=== PATIENT | female | born 1945 | race African-American/Black ===

== ENCOUNTER 2016-07-16 10:22 | Observation (INO) ==
--- NOTE | 2016-07-16 11:00 | XRay Report ---
History: Shortness of breath Date: 07/16/2016 Study: Chest x-ray PA and lateral Comparison exam: March 07, 2016 chest x-ray There is borderline cardiomegaly. The mediastinal contours are unchanged. There is chronic scarring in the lower lungs. There are prominent emphysematous changes in the lungs, more so in the right upper lobe. There is no new infiltrate. There is no layering pleural effusion. Osseous structures are unchanged. Impression: Chronic lung changes. No acute process compared to the previous study PROCEDURE INTERPRETED AT [facility] DEPARTMENT OF RADIOLOGY Final Report Signed by: Dr. Sylwia Cain
--- NOTE | 2016-07-16 11:11 | CT Report ---
Referring physician: Dain Zhao Exam: CT brain without contrast Date: July 16, 2016 Comparison: CT brain without contrast February 20, 2015 Reason: Right-sided weakness The patient is an Emergency Department patient on July 16, 2016. Technique: Axial images of the head were obtained without the use of contrast. Total DLP was 886.9 mGy*cm. Findings: There is a small stable focus of hypoattenuation within the subcortical white matter of the posterior right frontal lobe on image 11. This could represent a remote lacunar infarction. No hydrocephalus or midline shift is present. There is no evidence of recent intracranial hemorrhage, abnormal mass effect or an acute infarction. No acute osseous process is seen. The mastoid air cells and visualized paranasal sinuses are clear. Impression: 1. No acute intracranial process is identified. 2. Possible remote lacunar infarction within the subcortical white matter of the posterior right parietal lobe. The CT exam was performed using one or more of the following dose reduction techniques: Automated exposure control and adjustment of the mA and/or kV according to patient size. PROCEDURE INTERPRETED AT [facility] DEPARTMENT OF RADIOLOGY Final Report Signed by: Dr. Sharee Kraft
--- NOTE | 2016-07-16 11:16 | EKG Report ---
Stationary ECG Study [facility] Test Date: 07/16/2016 11:16:28 AM Pat Name: AMANDA ALVARADO Department: Room: Gender: F Promotional Advertising Assistant: : 1945 Requested by: Dain Reagan Order Number: [id number] Reading MD: JOSELIN CRUM Intervals [place] Rate: 83 P: 92 NM: 142 QRS: 51 QRSD: 75 T: 61 QT: 358 QTc: 397 Interpretive Statements SINUS RHYTHM Electronically Signed On 07-16-16 16:34:43 CDT by JOSELIN CRUM [email or web address]
[2016-07-16 11:42] LABS: INR 1.2; PT Patient Result 12.3 SECS
[2016-07-16 11:44] LABS: Basophils # 0.1 10*3/uL (0.0-0.2); Basophils % 0.5 % (0.0-0.8); Eosinophils # 0.7 10*3/uL (0.0-0.87); Eosinophils % 6.8 % (0.00-10.9); Hematocrit 39.4 VOL% (35.7-47.0); Immature Granulocytes % 0.3 %; Immature Granulocytes Absolute 0.03 #; Lymphocytes # 1.1 10*3/uL (1.4-4.0); Lymphocytes % 11.6 % (21.3-54.2); Mean Corpuscular Hemoglobin 31 PG (27-34); Mean Corpuscular Volume 92.7 FL (87-102); Mean Platelet Volume 10.5 FL (9.6-12.0); Monocytes # 0.5 10*3/uL (0.11-0.8); Monocytes % 5.2 % (1.7-12.7); Neutrophils # 7.4 10*3/uL (1.4-7.4); Neutrophils % 75.6 % (38.7-73.9); Platelet Count 198 T/CUMM (130-400); Red Blood Count 4.25 MC/CUMM (3.8-5.5); Red Cell Distribution Width 14.8 % (9.3-17.3); White Blood Count 9.7 T/CUMM (4-12)
[2016-07-16] MEDS ORDERED: ONDANSETRON 4 MG/2 ML VIAL IV PRN (11:51)
[2016-07-16] MEDS ORDERED: ACETAMINOPHEN 325 MG TABLET PO PRN (11:51)
--- NOTE | 2016-07-16 11:54 | Emergency Department Note ---
Kiana Mendiola Gwan, am scribing for, and in the presence of, Dain Zhao MD 10:46. Pavel Mendiola Phillip K, MD, personally performed the services described in this documentation, ascribed by Ish Bruno in my presence, and it is both accurate and complete . Arrival - Arrival Chief Complaint: Neuro Stated Complaint: SOB,weakness,r side headache ED Nursing Triage Note: Pt c/o right sided weakness (difficulty holding things with her right hand), SOB, and REY since yesterday. Mode of Arrival: Ambulatory Limitations: No Limitations Source: Patient, Old Records Reviewed - History of Present Illness HPI Narrative: Pt is a 70 y/o female, with a hx of HTN, who presents to the ED for further evaluation of upper right extremity with an onset yesterday. 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 She continued to note that when sxs did not subside this morning, she took 3 low dose aspirin and reported to ED for further evaluation. Patient denies any injury, hx of stroke, any problems with slurred speech, visual change or any weakness/problems with mobility with lower extremities. Patient confirmed that her PCP is Dr. Ramos and that she was present in office 3 weeks ago with NML results. Pt has a PMHx of Sarcoidosis, COPD, asthma and Laminectomy. No other problems/concerns reported in ED. Onset (ago): day(s) Consistency: constant Severity: moderate Allergies/Adverse Reactions: Allergies Allergy/AdvReac Type Severity Reaction Status Date / Time albuterol AdvReac Palpitation Verified 02/22/15 14:41 s theophylline AdvReac Palpitation Verified 02/22/15 14:41 s Home Medications: Home Medications Medication Instructions Recorded Confirmed Type Levalbuterol Inhaler [Xopenex 1 puff INH Q4-6H PRN 10/18/14 07/16/16 History Inhaler] Ibandronate Sodium [Boniva] 150 mg PO Q30D 02/20/15 07/16/16 History Pantoprazole Tab [Protonix Tab] 40 mg PO DAILY 02/20/15 07/16/16 History Aspirin [Ecotrin] 81 mg PO DAILY 10/04/15 07/16/16 History Cetirizine Tab [ZyrTEC Tab] 10 mg PO BEDTIME 10/04/15 07/16/16 History Ipratropium 0.06% Nasal [place] 2 spray BOTH NARES TID PRN 10/04/15 07/16/16 History [Atrovent 0.06% Nasal [place]] QUEtiapine [SEROquel] 25 mg PO BEDTIME 10/04/15 07/16/16 History amLODIPine [Norvasc] 5 mg PO DAILY 02/28/16 07/16/16 History predniSONE TAB [PredniSONE] 5 mg PO QOTHER DAY 02/28/16 07/16/16 History Calcium Carbonate [Tums Chew Tab] 1 tablet PO DAILY PRN 07/16/16 07/16/16 History Estradiol [Vagifem] 1 tablet VAG DIRECTED 07/16/16 07/16/16 History Tiotropium [place] [Spiriva 1.25 mcg PO BID 07/16/16 07/16/16 History Respimat] Tiotropium [place] [Spiriva 1.25 mg INH DAILY 07/16/16 07/16/16 History Respimat] Review of System - Review of System 12 point system: reviewed and no additional remarkable complaints except as stated - Review of System Constitutional: Absent: chills, fever Eyes: Absent: discharge Head/Ears/Nose/Throat: Absent: earache Respiratory: Present: as per HPI, other (shortness of breathe). Absent: cough Cardiovascular: Absent: chest pain Gastrointestinal: Absent: abdominal pain, nausea, vomiting Musculoskeletal: Present: as per HPI, arm pain (right arm weakness) Skin: Absent: rash, lesions Neurological: Present: as per HPI, headache Medical,Surgical,& Family Hx - Medical History Cardio: History of: Hypertension Psychological: History of: Anxiety Disorders, Depression Respiratory: History of: Asthma, COPD, Respiratory Problems (Sarcoidosis) Genitourinary: No history of: Kidney Stones Gastrointestinal: History of: GERD - Surgical History Cardiac Surgeries: Patient Denies: Cardiac Catheterization HEENT Surgeries: Patient denies: Tonsilectomy & Adenoidectomy Abdominal Surgeries: Surgical HX of: Cholecystectomy, Colonoscopy, EGD Patient denies: Appendectomy Reproductive Surgeries: Surgical HX of;: Hysterectomy Orthopedic Surgeries: Surgical HX of;: Spinal Surgery (laminectomy) - Social History Smoking Status: Never smoker Exam Vital Signs: Vital Signs Temperature 96.8 F L 07/16/16 16:00 Pulse Rate 91 H 07/16/16 13:42 Respiratory Rate 20 07/16/16 16:00 Blood Pressure 146/73 07/16/16 16:00 O2 Sat by Pulse Oximetry 98 07/16/16 16:00 - General General appearance: alert, in no apparent distress - Head Head exam: Present: atraumatic, normocephalic - Eye Eye exam: Present: normal appearance, PERRL, EOMI - ENT ENT exam: Present: normal oropharynx, mucous membranes moist, TM's normal bilaterally, normal external ear exam - Neck Neck exam: Present: full ROM, trachea midline. Absent: tenderness - Chest Chest inspection: Present: symmetric chest wall rise. Absent: tenderness - Respiratory Respiratory exam: Present: normal lung sounds bilaterally. Absent: respiratory distress - Cardiovascular Cardiovascular exam: Present: regular rate, normal rhythm, normal heart sounds. Absent: murmur, rubs - Abdominal Exam Abdominal exam: Present: soft, normal bowel sounds. Absent: distention, tenderness - Extremities Exam Extremities exam: Present: full ROM, other (weakness in economics instructor noted to right upper extremitiy more than on the left). Absent: tenderness - Back Exam Back exam: Present: full ROM. Absent: tenderness - Neurological Exam Neurological exam: Present: alert, oriented X3, CN II-XII intact, other ( Weakness in economics instructor noted to right side upper extremity more than on the left) - Psychiatric Psychiatric exam: Present: normal affect, normal mood - Skin Skin exam: Present: warm, dry, intact, normal color Course Course Narrative: Patient discussed with Dr. Ramos and he want to admit the patient and get an MRI scan and a neurology consult. Results - Labs CBC & BMP: 07/16/16 11:23 07/16/16 11:23 Lab Results: I have reviewed the patients labs Labs: Laboratory Tests 07/16/16 11:23 INR 1.2 PT Patient/Control Mix 12.3 Laboratory Tests 07/16/16 07/16/16 11:23 11:23 WBC 9.7 RBC 4.25 Hgb 13.0 Hct 39.4 Plt Count 198 Neut % (Auto) 75.6 H Lymph % (Auto) 11.6 L Lymph # (Auto) 1.1 L Sodium 144 Potassium 3.5 Chloride 106 Carbon Dioxide 31 BUN 14 Creatinine 0.80 Alkaline Phosphatase 127 H Total Protein 6.2 L - EKG EKG results: interpreted by NOE, WNL, sinus rhythm - Diagnostic Findings Procedure: Chest x-ray: report reviewed by me (Chronic lung changes. No acute process compares to the previous study. ), CT: report reviewed by me (Head CT: 1. No acute intracranial process is identified. 2. Possible remote lacunar infaraction within the subcortical white matter of the posterior right parietal lobe. ) Disposition Clinical Impression: Cerebrovascular accident, Possible transient ischemic attack Case discussed with: patient Disposition: Still a Patient Condition: Stable
[2016-07-16 12:08] LABS: Albumin 3.5 G/DL (3.4-5.0); Bilirubin,Total 0.4 MG/DL (0.2-1.0); Calcium 8.5 MG/DL (8.5-10.1); Osmolality,Calculated 285.8 MOS/KG (273-304); Potassium 3.5 MMOL/L (3.5-5.1); Total Protein 6.2 G/DL (6.4-8.3)
[2016-07-16 12:35] LABS: Apearance,Urine CLEAR (Clear); Bacteria,Urine Occasional /HPF (Few); Bilirubin,Urine Negative (Negative); Blood, Urine Negative (Negative); Glucose,Urine (UA) Negative (Negative); Ketones,Urine Negative (Negative); Nitrite,Urine Negative (Negative); Protein,Urine Negative; RBC,Urine <1 /HPF (0-4); Squamous Epithelial Cell,Urine Occasional /HPF (0-10); Urine Color Straw (Yellow); Urine Specific Gravity 1.004 (1.001-1.035); Urine Urobilinogen < 2.0 EU/DL (0.2-1.0); WBC,Urine 6 /HPF (0-6)
--- NOTE | 2016-07-16 12:45 | Internal Med History&Physical ---
Assessment and Plan (1) Right arm weakness Status: Acute Assessment and plan: 70-year-old female admitted to acute care * Right upper extremity weakness since last night. Possible TIA. CT brain was negative. 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 She had noticeable weakness when Dr. Zhao saw her. Will admit her and get an MRI brain. Will also check echocardiogram and carotid ultrasound on the patient. Will put her on a monitored bed she has history of previous paroxysmal A. fib. Will consult neurology * Hypertension. Blood pressure is stable. Continue current treatment * COPD. Continue her inhaler * History of anxiety and depression. Continue current treatment * Discussed with patient Current Visit: Yes (2) Depression Status: Acute Current Visit: No (3) Gastroesophageal reflux disease Status: Acute Current Visit: No (4) History of sarcoidosis Status: Acute Current Visit: No (5) Hypertension Status: Acute Current Visit: No History of Present Illness Chief complaint: Right hand weakness History of present illness: Ms. Clark is a 70 year old female with history of multiple medical problems including hypertension, sarcoidosis, osteoporosis, depression, anxiety who presented to the emergency room with right-sided weakness. She was having difficulty holding things with her right hand. She had a headache since yesterday and was short of breath. Patient went for bowling yesterday evening but could not hold her bowling ball properly and decided to come home. She also had a headache. This morning her symptoms did not subside and she decided to come to the emergency room. She denies any chest pain or shortness of breath. She denies any nausea vomiting or diarrhea. She denied any slurred speech or visual changes. She denies any weakness prior to this episode. She lives at home with her . She does not smoke or drink alcohol Home Medications Medication Instructions Recorded Confirmed Type Estradiol 0.01% Vag Cream [Estrace 1 drop TOP QOTHER DAY 10/18/14 02/28/16 History Vag Cream] Levalbuterol Inhaler [Xopenex 1 puff INH Q4-6H PRN 10/18/14 02/28/16 History Inhaler] Ibandronate Sodium [Boniva] 150 mg PO Q30D 02/20/15 02/28/16 History Pantoprazole Tab [Protonix Tab] 40 mg PO DAILY 02/20/15 02/28/16 History Aspirin [Ecotrin] 81 mg PO DAILY 10/04/15 02/28/16 History Cetirizine Tab [ZyrTEC Tab] 10 mg PO BEDTIME 10/04/15 02/28/16 History Ipratropium 0.06% Nasal [place] 2 spray BOTH NARES TID PRN 10/04/15 02/28/16 History [Atrovent 0.06% Nasal [place]] QUEtiapine [SEROquel] 25 mg PO BEDTIME 10/04/15 02/28/16 History Tiotropium [place] [Spiriva 4 gm INH DAILY 02/28/16 02/28/16 History Respimat] amLODIPine [Norvasc] 10 mg PO DAILY 02/28/16 02/28/16 History predniSONE TAB [PredniSONE] 5 mg PO DAILY 02/28/16 02/28/16 History Allergies Allergy/AdvReac Type Severity Reaction Status Date / Time albuterol AdvReac Palpitation Verified 02/22/15 14:41 s theophylline AdvReac Palpitation Verified 02/22/15 14:41 s Medical,Surgical,& Family Hx - Medical History Cardio: History of: Hypertension Psychological: History of: Anxiety Disorders, Depression Respiratory: History of: Asthma, COPD, Respiratory Problems (Sarcoidosis) Genitourinary: No history of: Kidney Stones Gastrointestinal: History of: GERD - Surgical History Cardiac Surgeries: Patient Denies: Cardiac Catheterization HEENT Surgeries: Patient denies: Tonsilectomy & Adenoidectomy Abdominal Surgeries: Surgical HX of: Cholecystectomy, Colonoscopy, EGD Patient denies: Appendectomy Reproductive Surgeries: Surgical HX of;: Hysterectomy Orthopedic Surgeries: Surgical HX of;: Spinal Surgery (laminectomy) - Social History Smoking Status: Never smoker Frequency of Alcohol Use: None Marital Status: Lives With:: Spouse Functional capacity: independent ambulation 12 point system: reviewed and no additional remarkable complaints except as stated (As mentioned in HPI) Exam - Constitutional Vitals: Period Temp Pulse Resp BP Sys/Guzman Pulse Ox Last 24 Hr 97.7 F 99 18-22 132/78 Exam: Examination: GENERAL: NAD. HEENT: PERRLA. EOMI. Mucous membranes are moist. NECK: Neck is supple. No JVD. No carotid bruit. No thyromegaly. CVS: Regular rate and rhythm. S1 and S2 are normal. RESPIRATORY: Lungs are clear. Few rhonchi but decreased air in ABDOMEN: Soft and nontender. Bowel sounds are present. No hepatosplenomegaly. EXT: No edema. Peripheral pulses are present. OPERATIONS GENERAL AGENT: Patient is awake, alert and oriented to time place and person. Cranial nerves II through XII are grossly intact. Motor strength is 5 over 5 both upper and lower extremities. Sensory is intact. Deep tendon reflexes are present. SKIN: Warm and dry. MSK: No obvious deformity. Results - Labs CBC & BMP: 07/16/16 11:23 07/16/16 11:23 Lab Results: I have reviewed the past 24 hour labs Quality Measures - Stroke Onset of Symptoms Date: 07/15/16
[2016-07-16] MEDS ORDERED: CALCIUM CARBONATE CHEW 500 MG TABLET PO PRN (16:40)
[2016-07-16] MEDS ORDERED: IPRATROPIUM 0.06% NASAL SPRAY 15 ML BOTTLE BOTH NARES PRN (16:40)
[2016-07-16] MEDS ORDERED: IBANDRONATE SODIUM 150 MG PO SCH (16:45)
[2016-07-16] MEDS ORDERED: ESTRADIOL VAG SCH (16:45)
--- NOTE | 2016-07-16 17:08 | ECHO Report ---
Avani Clark Exam Date: 07/16/2016 14:11 Referring Physician: Technologist: Yuliya uCello Age: 70 Ht (in): 64 Wt (lb): 165 Gender: F Exam Location: [facility] Echo Indications: TIA, SOB, weakness, right sided headache BP: 138 / 81 HR: 91 Rhythm: Sinus Technical Quality: average IMPRESSIONS Left ventricular ejection fraction is estimated at 55%. There is no regional wall motion abnormality. Diastolic parameters are most consistent grade 1 diastolic dysfunction impaired relaxation. Tricuspid regurgitation velocities suggest a RVSP of 33mmHg + RAP. MEASUREMENTS (Male / Female) Normal Values 2D ECHO LV Diastolic Diameter PLAX 4.0 cm 4.2 - 5.9 / 3.9 - 5.3 cm LV Systolic Diameter PLAX 2.0 cm LV Fractional Shortening PLAX 49.3 % IVS Diastolic Thickness 1.2 cm 0.6 - 1.0 / 0.6 - 0.9 cm LVPW Diastolic Thickness 1.2 cm 0.6 - 1.0 / 0.6 - 0.9 cm RV Internal Dim ED PLAX 2.6 cm Aortic Root Diameter 2.5 cm LA Systolic Diameter LX 3.0 cm 3.0 - 4.0 / 2.7 - 3.8 cm DOPPLER TR Peak Velocity 286.0 cm/s TR Peak Gradient 32.7 mmHg FINDINGS Left Ventricle Normal left ventricular cavity size. Mild concentric left ventricular hypertrophy.left ventricular ejection fraction is estimated at 55%. There is no regional wall motion abnormality. Diastolic parameters are most consistent grade 1 diastolic dysfunction impaired relaxation. Right Ventricle Normal right ventricular size. Right Atrium The right atrium is mildly enlarged. Left Atrium The left atrium is mildly enlarged. Mitral Valve Mild mitral valve sclerosis. Mild mitral valve regurgitation. Aortic Valve Mild aortic valve sclerosis. There is no stenosis or insufficiency Tricuspid Valve Mild tricuspid valve sclerosis. Mild tricuspid valve regurgitation. Tricuspid regurgitation velocities suggest a RVSP of 33mmHg + RAP. Pulmonic Valve Morphologically normal pulmonic valve. Mild pulmonary valve regurgitation. Pericardium No pericardial effusion. Aorta Normal size aortic root and proximal ascending aorta. Tiffanie Cabrera (Electronically Signed) Final Date: 16 Jul 2016 17:07
--- NOTE | 2016-07-16 17:16 | Magnetic Resonance Report ---
Referring physician: Devante Ramos Exam: MRI brain with and without contrast Date: July 16, 2016 Comparison: CT brain without contrast July 16, 2016, MRI brain September 21, 2015 Reason: Right arm and hand numbness, headache The patient is an inpatient who was admitted on July 16, 2016. Technique: MRI of the brain was performed with and without the use of 15 cc of IV Dotarem contrast. Obtained precontrast images include sagittal T1, axial diffusion-weighted, axial FLAIR, axial T2, axial gradient and axial T1 sequences. Postcontrast sequences include axial and coronal T1 sequences. A 1.2 Kristi open magnet was used. Findings: There are small scattered areas of T2/FLAIR hyperintensity within the cerebral white matter bilaterally, which is similar to before. This is nonspecific but likely represents mild chronic microvascular ischemic change. Less likely considerations include a demyelinating process, vasculitis, viral process or Lyme disease. No hydrocephalus or midline shift is present. There is no evidence of recent intracranial hemorrhage, abnormal mass effect or an acute infarction. No abnormal extra-axial fluid collection is identified, and no suspicious intracranial enhancement is seen. Major vascular flow voids are visualized. The orbits, sella and brainstem are unremarkable. The paranasal sinuses and mastoid air cells are clear. Impression: 1. No acute intracranial process is identified. 2. Probable mild chronic microvascular ischemic change, similar to before. PROCEDURE INTERPRETED AT [facility] DEPARTMENT OF RADIOLOGY Final Report Signed by: Dr. Sharee Kraft
--- NOTE | 2016-07-16 17:20 | Ultrasound Report ---
US carotid duplex BI Indication: TIA. CAROTID ULTRASOUND Comparison: None. Findings: Grayscale, color Doppler and pulsed Doppler interrogation of the carotid and vertebral arteries performed. Severity of stenosis based on flow velocity measurements using NASCET criteria. Distal right ICA diameter: 5.5 mm Distal left ICA diameter: 5.4 mm Peak systolic flow velocities in centimeters per second are as follows: Right: CCA: 56 cm/s Proximal ICA: 77 Distal ICA: 66 ICA/CCA ratio: 1.4 Left: CCA: 57 cm/s Proximal ICA: 49 Distal ICA: 64 ICA/CCA ratio: 1.1 External carotid arteries: Both are patent with antegrade flow. Vertebral arteries: Both are patent with antegrade flow. Grayscale and color Doppler images: No significant focal plaque deposition identified, with normal color Doppler flow present. Pulse Doppler waveform interrogation: No significant spectral broadening. Impression: No hemodynamically significant stenosis of either ICA PROCEDURE INTERPRETED AT [facility] DEPARTMENT OF RADIOLOGY Final Report Signed by: Raymond Ramos M.D.
[2016-07-16] MEDS ORDERED: ALBUTEROL 2.5 MG/3 ML NEB RESP TX PRN (17:30)
[2016-07-16] MEDS ORDERED: QUEtiapine 25 MG TABLET PO SCH (21:00)
[2016-07-16] MEDS ORDERED: CETIRIZINE 10 MG TABLET PO SCH (21:00)
[2016-07-16] MEDS ORDERED: TIOTROPIUM BROMIDE 1.25 MCG PO SCH (21:00)
[2016-07-16] MEDS: DOCUSATE SODIUM 100 MG CAPSULE PO SCH (21:50)
[2016-07-17] MEDS ORDERED: ALBUTEROL/IPRATROPIUM 3 ML NEB RESP TX SCH (07:00)
[2016-07-17] MEDS: DOCUSATE SODIUM 100 MG CAPSULE PO SCH (08:23)
--- NOTE | 2016-07-17 08:52 | Discharge Summary ---
Hospital Course - Hospital Course Hospital Course: 70-year-old female with history of hypertension, sarcoidosis, osteoporosis, depression and generalized anxiety presented to emergency room with right-sided weakness. She had noticed it while bowling the night before. By the time I saw her she had no weakness. She had history of paroxysmal A. fib in the past. Patient was admitted and underwent MRI of the brain along with echocardiogram and carotid ultrasound. These were negative. Neurology was consulted to see the patient. She is okay to go home later on today after evaluation by neurology. She will keep her appointment as scheduled Diagnosis - Discharge Diagnosis (1) Right arm weakness Status: Acute (2) Depression Status: Acute (3) Gastroesophageal reflux disease Status: Acute (4) History of sarcoidosis Status: Acute (5) Hypertension Status: Acute Discharge Plan - Discharge Data Disposition: Disch To Home/Self Care Condition at Discharge: Stable Discharge Diet: advance to your usual diet Activity: resume usual activities as tolerated - Discharge Medications Continue Levalbuterol Inhaler [Xopenex Inhaler] 1 puff INH Q4-6H PRN PRN Reason: Shortness Of Breath Pantoprazole Tab [Protonix Tab] 40 mg PO DAILY Ibandronate Sodium [Boniva] 150 mg PO Q30D Ipratropium 0.06% Nasal [place] [Atrovent 0.06% Nasal [place]] 2 spray BOTH NARES TID PRN PRN Reason: Allergy Symptoms Cetirizine Tab [ZyrTEC Tab] 10 mg PO BEDTIME Aspirin [Ecotrin] 81 mg PO DAILY QUEtiapine [SEROquel] 25 mg PO BEDTIME predniSONE TAB [PredniSONE] 5 mg PO QOTHER DAY amLODIPine [Norvasc] 5 mg PO DAILY Calcium Carbonate [Tums Chew Tab] 1 tablet PO DAILY PRN PRN Reason: Heartburn Tiotropium [place] [Spiriva Respimat] 1.25 mg INH DAILY Tiotropium [place] [Spiriva Respimat] 1.25 mcg PO BID Estradiol [Vagifem] 1 tablet VAG DIRECTED - Follow Up or Referral - Forms/Instructions Exam - Constitutional Vitals: Period Temp Pulse Resp BP Sys/Guzman Pulse Ox Last 24 Hr 96.8 F-99.3 F 84-99 18-22 114-146/73-81 97-98 Exam: Examination: GENERAL: NAD. NECK: Neck is supple. CVS: Regular rate and rhythm. S1 and S2 are normal. RESPIRATORY: Lungs are clear. Bowel sounds are present. No hepatosplenomegaly. EXT: No edema. Peripheral pulses are present. AIR BAG STRIPPER: Nonfocal SKIN: Warm and dry. MSK: No obvious deformity. Discharge Results Procedures and tests throughout hospitalization: Pending Orders 07/16/16 Urine Culture Routine Labs on day of discharge: Labs from last 24 hours 07/16/16 12:21 Urine Color Straw Urine Appearance Clear Urine pH 7.0 Ur Specific [place] 1.004 Urine Protein Negative Urine Glucose (UA) Negative Urine Ketones Negative Urine Blood Negative Urine Nitrate Negative Urine Bilirubin Negative Urine Urobilinogen < 2.0 H Urine Leukocytes Small H Urine RBC <1 Urine WBC 6 Ur Squamous Epith Cells Occasional Urine Bacteria Occasional Ur Culture Indicated? Results to follow DS: Provider Date of admission: 07/16/16 11:50 Primary care physician: . No PCP Attending physician on admission: Devante Rmaos MD Consults: 07/16/16 11:51 Consult to Case Mgmt/Social Srvs [CONS] Routine Reason for Case Mgmt/Social Srvs: Discharge Planning Consult to Physician [CONS] Routine Comment: Right arm and hand weakness, headache Consulting Provider: Frank Simon Person Notified: Melina Date Notified: 07/16/16 Time Notified: 14:29 Consult Notification Comment: left message at 1413. 07/16/16 13:18 Consult to Pharmacy [CONS] Routine Reason for Pharmacy Consult: Adjust Meds Renal Funct 07/16/16 13:57 Consult to Dietitian [CONS] Routine Reason for Dietitian: Other Discharging clinician: Devante Ramos MD
[2016-07-17] MEDS ORDERED: PANTOPRAZOLE 40 MG TABLET PO SCH ×2 (09:00)
[2016-07-17] MEDS ORDERED: ASPIRIN EC 81 MG TABLET PO SCH (09:00)
[2016-07-17] MEDS ORDERED: amLODIPine 5 MG TABLET PO SCH (09:00)
[2016-07-17 11:43] VITALS: BP 98/64
[2016-07-17] MEDS ORDERED: IPRATROPIUM 500 MCG/2.5 ML NEB RESP TX SCH (11:46)
--- NOTE | 2016-07-17 15:08 | Neurology Consult Note ---
History of Present Illness History of present illness: Ms. Clark is a 70 year old female with history of multiple medical problems including hypertension, sarcoidosis, osteoporosis, depression, anxiety who presented to the emergency room with right-sided weakness. She was having difficulty holding things with her right hand. Patient went for bowling Friday night but could not hold her bowling ball properly and decided to come home. Friday morning her symptoms did not subside and she decided to come to the emergency room. She denies any chest pain or shortness of breath. She denies any nausea vomiting or diarrhea. She denied any slurred speech or visual changes. She denies any weakness prior to this episode. She lives at home with her . She does not smoke or drink alcohol. MRI of the brain reveals no acute abnormalities. Carotid ultrasound is negative. Home Medications Medication Instructions Recorded Confirmed Type Levalbuterol Inhaler [Xopenex 1 puff INH Q4-6H PRN 10/18/14 07/16/16 History Inhaler] Ibandronate Sodium [Boniva] 150 mg PO Q30D 02/20/15 07/16/16 History Pantoprazole Tab [Protonix Tab] 40 mg PO DAILY 02/20/15 07/16/16 History Aspirin [Ecotrin] 81 mg PO DAILY 10/04/15 07/16/16 History Cetirizine Tab [ZyrTEC Tab] 10 mg PO BEDTIME 10/04/15 07/16/16 History Ipratropium 0.06% Nasal [place] 2 spray BOTH NARES TID PRN 10/04/15 07/16/16 History [Atrovent 0.06% Nasal [place]] QUEtiapine [SEROquel] 25 mg PO BEDTIME 10/04/15 07/16/16 History amLODIPine [Norvasc] 5 mg PO DAILY 02/28/16 07/16/16 History predniSONE TAB [PredniSONE] 5 mg PO QOTHER DAY 02/28/16 07/16/16 History Calcium Carbonate [Tums Chew Tab] 1 tablet PO DAILY PRN 07/16/16 07/16/16 History Estradiol [Vagifem] 1 tablet VAG DIRECTED 07/16/16 07/16/16 History Tiotropium [place] [Spiriva 1.25 mcg PO BID 07/16/16 07/16/16 History Respimat] Tiotropium [place] [Spiriva 1.25 mg INH DAILY 07/16/16 07/16/16 History Respimat] Allergies Allergy/AdvReac Type Severity Reaction Status Date / Time albuterol AdvReac Palpitation Verified 02/22/15 14:41 s theophylline AdvReac Palpitation Verified 02/22/15 14:41 s 12 point system: reviewed and no additional remarkable complaints except as stated Medical,Surgical,& Family Hx - Medical History Cardio: History of: Hypertension Psychological: History of: Anxiety Disorders, Depression Respiratory: History of: Asthma, COPD, Respiratory Problems (Sarcoidosis) Genitourinary: No history of: Kidney Stones Gastrointestinal: History of: GERD - Surgical History Cardiac Surgeries: Patient Denies: Cardiac Catheterization Thoracic Surgeries: Patient denies;: Organ Transplant Neurologic Surgeries: Patient denies: Neurologic Surgery HEENT Surgeries: Patient denies: Tonsilectomy & Adenoidectomy Abdominal Surgeries: Surgical HX of: Cholecystectomy, Colonoscopy, EGD Patient denies: Appendectomy Reproductive Surgeries: Surgical HX of;: Hysterectomy Orthopedic Surgeries: Surgical HX of;: Spinal Surgery (laminectomy) - Social History Smoking Status: Never smoker Frequency of Alcohol Use: None Type of Drug Use: None Exam - Constitutional Vitals: Period Temp Pulse Resp BP Sys/Guzman Pulse Ox Last 24 Hr 96.8 F-99.3 F 78-87 18-20 98-146/58-79 97-99 Exam: GENERAL: Patient is in no acute distress. NECK: Neck is supple. There is no JVD. No carotid bruits present. No thyroid masses. CVS: First and second heart sounds are normal. There is no S3 present. Regular rate and rhythm. RESPIRATORY: Lungs are clear to auscultation without any rales or rhonchi. ABDOMEN: Soft and non-tender. Bowel sounds are present. There is no hepatosplenomegaly. EXT: There is no palpable edema. Peripheral pulses are present. Skin: No rashes Central Nervous system: General: Alert, awake and Oriented x 3 Speech: Fluent Comprehension: Intact and normal Facial expressions: Normal Cranial Nerves: CN1/Olfactory: Normal CN II/ Optic: Normal, Visual Fitzgerald unreliable CN III, and : STANLEY & EOMI CN V: Normal & intact CN VII: face is symmetric CNVIII: Normal CN XI/X/XI/XII: Intact and Normal Motor: Bulk and Tone is normal. Strength in the right 5/5 except very minimal right deltoid weakness which could very well be due to shoulder arthritis Strength in the left 5/5 Sensory: Grossly intact for all the modalities of PP, LT and temp sense Reflexes: 1+ and symmetrical Cerebellar function: Normal finger to nose and heel to cronin testing. Toes: Equivocal Gait: Normal heel to heel and toe to toe and tandem walk. Results - Labs CBC & BMP: 07/16/16 11:23 07/16/16 11:23 Assessment and Plan (1) Right arm weakness Status: Acute Assessment and plan: This could very well be due to right shoulder arthritis. She has minimal weakness in the deltoid otherwise her whole arm is pretty strong. No evidence of stroke or any other space occupying lesion in the brain MRI Continue aspirin a day Recommend outpatient OT Okay to go home when okay with PCP Thank you for the consult Current Visit: Yes Specialty Discharge - Follow Up or Referrals
[2016-07-18] MEDS ORDERED: predniSONE 5 MG TABLET PO SCH (09:00)
== END 2016-07-17 16:07 | disposition home or self-care (01) ==
LOC: N.ED 10:22 → INTOOBSV 11:50 → N.EDINP 11:50 → N.5E 13:02
PROVIDERS: ADMIT Internal Medicine; ATTEND Internal Medicine

== ENCOUNTER 2016-08-15 19:34 | Inpatient (IN) ==
[2016-08-15] MEDS ORDERED: methylPREDNISolone SOD SUC 125 MG/2 ML VIAL IV ONE (19:54)
[2016-08-15] MEDS ORDERED: LEVALBUTEROL 1.25 MG/3 ML NEB RESP TX STA (19:55)
[2016-08-15] MEDS ORDERED: methylPREDNISolone SOD SUC 125 MG/2 ML VIAL ONE (20:15)
[2016-08-15 20:20] LABS: Basophils % 0.2 % (0.0-0.8); Eosinophils % 0.2 % (0.00-10.9); Hematocrit 38.8 VOL% (35.7-47.0); Hemoglobin 13.2 GM/DL (12.0-16.0); Immature Granulocytes % 0.6 %; Immature Granulocytes Absolute 0.08 #; Lymphocytes % 7.6 % (21.3-54.2); Mean Corpuscular Hemoglobin 31 PG (27-34); Mean Corpuscular Volume 91.5 FL (87-102); Mean Platelet Volume 10.5 FL (9.6-12.0); Monocytes # 1.3 10*3/uL (0.11-0.8); Monocytes % 9.8 % (1.7-12.7); Neutrophils # 11.1 10*3/uL (1.4-7.4); Neutrophils % 81.6 % (38.7-73.9); Platelet Count 235 T/CUMM (130-400); Red Blood Count 4.24 MC/CUMM (3.8-5.5); Red Cell Distribution Width 14.5 % (9.3-17.3); White Blood Count 13.6 T/CUMM (4-12)
--- NOTE | 2016-08-15 20:30 | XRay Report ---
XR chest 1V portable Indication: Chest pain/SOB Comparison: Chest x-ray dated July 16, 2016 Technique: Single frontal view of the chest. Findings: The cardiomediastinal silhouette is stable in configuration. Chronic change of the lungs present including right greater than left perihilar scarring/atelectasis as well as bibasilar scarring. Interval development of hazy opacification within the medial right lower lobe suspicious for pneumonia. Recommend follow-up imaging to document resolution. Visualized osseous and surrounding soft tissue structures appear grossly unchanged. IMPRESSION: As above. PROCEDURE INTERPRETED AT [facility] DEPARTMENT OF RADIOLOGY Final Report Signed by: Dr Erasmo Herrmann
[2016-08-15 20:37] LABS: Apearance,Urine CLEAR (Clear); Bilirubin,Urine Negative (Negative); Blood, Urine Moderate mg/dL (Negative); Glucose,Urine (UA) Negative (Negative); Ketones,Urine 80 mg/dL (Negative); Mucus,Urine Few /LPF (Occasional); Nitrite,Urine Negative (Negative); Protein,Urine 30 MG/DL; RBC,Urine 3 /HPF (0-4); Urine Color Yellow (Yellow); Urine Urobilinogen < 2.0 EU/DL (0.2-1.0)
--- NOTE | 2016-08-15 20:40 | Emergency Department Note ---
Terrance Mendiola Manpreet, am scribing for, and in the presence of, Deion Lee MD 20:05. Jesus Mendiola Robert M, MD, personally performed the services described in this documentation, ascribed by Manas Carlos in my presence, and it is both accurate and complete . Arrival - Arrival Chief Complaint: Shortness of Breath Stated Complaint: SOB/ASTHMA/CHEST/RIB PAIN ED Nursing Triage Note: C/O Shortness of breath and productive cough with yellow sputum. Onset yesterday. Pt reports that she has asthma and sees Dr. Heath for her lung problems. Denies fever at home. Mode of Arrival: Wheelchair Limitations: No Limitations Source: Patient Time Seen by Provider: 08/15/16 19:54 - History of Present Illness HPI Narrative: Pt is a 71 y/o female, with PMHx of HTN, asthma, COPD, sarcoidosis, and GERD, who presents to the ED with CC of SOB since yesterday. Pt also c/o a sharp right rib cage pain and coughing. Pt states she had a 10 percent right-sided pneumothorax 6 months ago which she was told to monitor. No other pains/ complaints reported to ED. Onset (ago): day(s) Consistency: constant Severity: moderate Severity scale (1-10): 4 Quality: sharp Date of Last Menstrual Period: PM Allergies/Adverse Reactions: Allergies Allergy/AdvReac Type Severity Reaction Status Date / Time albuterol AdvReac Palpitation Verified 02/22/15 14:41 s theophylline AdvReac Palpitation Verified 02/22/15 14:41 s Home Medications: Home Medications Medication Instructions Recorded Confirmed Type Levalbuterol Inhaler [Xopenex 1 puff INH Q4-6H PRN 10/18/14 07/16/16 History Inhaler] Ibandronate Sodium [Boniva] 150 mg PO Q30D 02/20/15 07/16/16 History Pantoprazole Tab [Protonix Tab] 40 mg PO DAILY 02/20/15 07/16/16 History Aspirin [Ecotrin] 81 mg PO DAILY 10/04/15 07/16/16 History Cetirizine Tab [ZyrTEC Tab] 10 mg PO BEDTIME 10/04/15 07/16/16 History Ipratropium 0.06% Nasal [place] 2 spray BOTH NARES TID PRN 10/04/15 07/16/16 History [Atrovent 0.06% Nasal [place]] QUEtiapine [SEROquel] 25 mg PO BEDTIME 10/04/15 07/16/16 History amLODIPine [Norvasc] 5 mg PO DAILY 02/28/16 07/16/16 History predniSONE TAB [PredniSONE] 5 mg PO QOTHER DAY 02/28/16 07/16/16 History Calcium Carbonate [Tums Chew Tab] 1 tablet PO DAILY PRN 07/16/16 07/16/16 History Estradiol [Vagifem] 1 tablet VAG DIRECTED 07/16/16 07/16/16 History Tiotropium [place] [Spiriva 1.25 mcg PO BID 07/16/16 07/16/16 History Respimat] Tiotropium [place] [Spiriva 1.25 mg INH DAILY 07/16/16 07/16/16 History Respimat] Review of System - Review of System 12 point system: reviewed and no additional remarkable complaints except as stated - Review of System Constitutional: Absent: chills, diaphoresis, fever Respiratory: Present: cough, respiratory distress Cardiovascular: Present: dyspnea on exertion. Absent: chest pain Gastrointestinal: Absent: abdominal pain, nausea, vomiting Musculoskeletal: Present: upper back pain (Right rib cage pain). Absent: leg pain Neurological: Absent: headache, weakness Medical,Surgical,& Family Hx - Medical History Cardio: History of: Hypertension Psychological: History of: Anxiety Disorders, Depression Respiratory: History of: Asthma, COPD, Respiratory Problems (Sarcoidosis) Genitourinary: No history of: Kidney Stones Gastrointestinal: History of: GERD - Surgical History Cardiac Surgeries: Patient Denies: Cardiac Catheterization Thoracic Surgeries: Patient denies;: Organ Transplant Neurologic Surgeries: Patient denies: Neurologic Surgery HEENT Surgeries: Patient denies: Tonsilectomy & Adenoidectomy Abdominal Surgeries: Surgical HX of: Cholecystectomy, Colonoscopy, EGD Patient denies: Appendectomy Reproductive Surgeries: Surgical HX of;: Hysterectomy Orthopedic Surgeries: Surgical HX of;: Spinal Surgery (laminectomy) - Social History Smoking Status: Never smoker Frequency of Alcohol Use: None Type of Drug Use: None Exam Vital Signs: Vital Signs Temperature 100.1 F H 08/15/16 19:35 Pulse Rate 106 H 08/15/16 20:13 Respiratory Rate 23 08/15/16 20:13 Blood Pressure 125/76 08/15/16 19:35 O2 Sat by Pulse Oximetry 99 08/15/16 20:13 - General General appearance: alert - Head Head exam: Present: atraumatic, normocephalic, normal inspection - Eye Eye exam: Present: normal appearance, PERRL, EOMI - ENT ENT exam: Present: normal exam, normal oropharynx, mucous membranes moist, TM's normal bilaterally - Neck Neck exam: Present: normal inspection, full ROM, trachea midline. Absent: tenderness, thyromegaly - Chest Chest inspection: Present: normal inspection, symmetric chest wall rise. Absent : tenderness - Respiratory Respiratory exam: Present: accessory muscle use, respiratory distress, wheezes. Absent: normal lung sounds bilaterally - Cardiovascular Cardiovascular exam: Present: regular rate, normal rhythm, normal heart sounds - Abdominal Exam Abdominal exam: Present: soft, normal bowel sounds. Absent: distention, tenderness - Extremities Exam Extremities exam: Present: normal inspection, full ROM, tenderness - Back Exam Back exam: Present: other (Point tenderness to posterior right rib cage). Absent: normal inspection, full ROM, tenderness - Neurological Exam Neurological exam: Present: alert, oriented X3, CN II-XII intact, reflexes normal - Psychiatric Psychiatric exam: Present: normal affect, normal mood - Skin Skin exam: Present: warm, dry, intact, normal color. Absent: pallor Course - Consultations Consultation #1: Dr. Ramos appears to be the patient's family physician. I am going to admit her to him. Dr. Moira Quarles is student admissions clerk. Time: 20:43 Results - Labs CBC & BMP: 08/15/16 20:13 Lab Results: I have reviewed the patients labs - Diagnostic Findings Procedure: Chest x-ray: image reviewed by me (Right middle lobe pneumonia) Disposition Clinical Impression: Right middle lobe pneumonia, Hypertension, History of sarcoidosis Case discussed with: patient Disposition: Still a Patient Condition: Stable Time of Disposition: 20:43
[2016-08-15] MEDS ORDERED: LEVOFLOXACIN INJ 750 MG in PREMIX 1 EACH IV STA (20:41)
[2016-08-15] MEDS ORDERED: ACETAMINOPHEN 325 MG TABLET PO PRN (20:45)
[2016-08-15] MEDS ORDERED: ONDANSETRON 4 MG/2 ML VIAL IV PRN (20:45)
[2016-08-15 20:52] LABS: Calcium 8.4 MG/DL (8.5-10.1); Magnesium 2.2 MG/DL (1.8-2.4); Osmolality,Calculated 275.5 MOS/KG (273-304); Potassium 4.3 MMOL/L (3.5-5.1)
[2016-08-15] MEDS ORDERED: LEVOFLOXACIN INJ 150 ML IV ONE (21:04)
--- NOTE | 2016-08-15 21:18 | EKG Report ---
Stationary ECG Study [facility] ER Test Date: 08/15/2016 7:42:49 PM Pat Name: AMANDA ALVARADO Department: Room: 336 Gender: F Senior Inspector: Ben : 1945 Requested by: Deion Lee Order Number: [id number] Reading MD: LILLIAN MONIQUE Intervals [place] Rate: 114 P: 92 WI: 129 QRS: 70 QRSD: 66 T: 47 QT: 321 QTc: 388 Interpretive Statements SINUS TACHYCARDIA POOR QUALITY BASELINE Electronically Signed On 08-16-16 09:05:35 CDT by LILLIAN MONIQUE [email or web address]
[2016-08-15] MEDS: DOCUSATE SODIUM 100 MG CAPSULE PO SCH (22:12)
[2016-08-15] MEDS: cefTRIAXone 1,000 MG in SODIUM CHLORIDE 0.9% 100 ML IV SCH (23:34)
[2016-08-16] MEDS: AZITHROMYCIN INJ 500 MG in SODIUM CHLORIDE 0.9% 250 ML IV SCH ×2 (00:40→23:51)
--- NOTE | 2016-08-16 09:04 | Internal Med History&Physical ---
Assessment and Plan (1) Acute bronchopneumonia Status: Acute Assessment and plan: 71-year-old female admitted to acute care * Acute right middle lobe pneumonia. Patient has been started on antibiotics. * Asthma. She will be continued on bronchodilators and steroids * History of sarcoidosis. Patient has chronic scarring on her chest x-ray. It is not active * Depression. Continue current treatment * Hypertension. Continue blood pressure medication * Discussed with patient Current Visit: Yes (2) Asthma Status: Acute Current Visit: Yes (3) History of sarcoidosis Status: Acute Current Visit: Yes (4) Hypertension Status: Acute Current Visit: Yes (5) Depression Status: Acute Current Visit: No (6) Gastroesophageal reflux disease Status: Acute Current Visit: No History of Present Illness Chief complaint: Shortness of breath and cough with fever History of present illness: Ms. Clark is a 71 year old female with history of multiple medical problems including asthma, sarcoidosis, history of pneumothorax, hypertension, depression , anxiety, paroxysmal atrial fibrillation and osteoporosis. She presented to the emergency room not feeling well for several days. She ran a fever of 100. She also had sharp pain in the right chest wall. She felt that she probably developed another pneumothorax. She was evaluated in the emergency room and was felt to have pneumonia and was admitted. She denies any nausea vomiting or diarrhea. She denies any palpitations. She denies any fever or chills. Patient lives at home with her . No history of smoking or alcohol use. Home Medications Medication Instructions Recorded Confirmed Type Levalbuterol Inhaler [Xopenex 1 puff INH Q4-6H PRN 10/18/14 08/15/16 History Inhaler] Ibandronate Sodium [Boniva] 150 mg PO Q30D 02/20/15 08/15/16 History Pantoprazole Tab [Protonix Tab] 40 mg PO DAILY 02/20/15 08/15/16 History Aspirin [Ecotrin] 81 mg PO DAILY 10/04/15 08/15/16 History Cetirizine Tab [ZyrTEC Tab] 10 mg PO BEDTIME 10/04/15 08/15/16 History Ipratropium 0.06% Nasal [place] 2 spray BOTH NARES TID PRN 10/04/15 08/15/16 History [Atrovent 0.06% Nasal [place]] QUEtiapine [SEROquel] 25 mg PO BEDTIME 10/04/15 08/15/16 History amLODIPine [Norvasc] 5 mg PO DAILY 02/28/16 08/15/16 History predniSONE TAB [PredniSONE] 5 mg PO QOTHER DAY 02/28/16 08/15/16 History Calcium Carbonate [Tums Chew Tab] 1 tablet PO DAILY PRN 07/16/16 08/15/16 History Estradiol [Vagifem] 1 tablet VAG DIRECTED 07/16/16 08/15/16 History Tiotropium [place] [Spiriva 1.25 mcg PO BID 07/16/16 08/15/16 History Respimat] Allergies Allergy/AdvReac Type Severity Reaction Status Date / Time albuterol AdvReac Palpitation Verified 02/22/15 14:41 s theophylline AdvReac Palpitation Verified 02/22/15 14:41 s Medical,Surgical,& Family Hx - Medical History Cardio: History of: Hypertension Psychological: History of: Anxiety Disorders, Depression Respiratory: History of: Asthma, Respiratory Problems (Sarcoidosis) Genitourinary: No history of: Kidney Stones Gastrointestinal: History of: GERD - Surgical History Cardiac Surgeries: Patient Denies: Cardiac Catheterization Thoracic Surgeries: Patient denies;: Organ Transplant Neurologic Surgeries: Patient denies: Neurologic Surgery HEENT Surgeries: Surgical HX of: Eye Surgery (cataract surgery) Patient denies: Tonsilectomy & Adenoidectomy Abdominal Surgeries: Surgical HX of: Cholecystectomy, Colonoscopy, EGD Patient denies: Appendectomy Reproductive Surgeries: Surgical HX of;: Hysterectomy Orthopedic Surgeries: Surgical HX of;: Spinal Surgery (laminectomy) - Family History Family History: Reports;: Family Cancer (sister (breast), mother (breast)), Family Hypertension (sisters) - Social History Smoking Status: Never smoker Frequency of Alcohol Use: None Type of Drug Use: None Marital Status: Lives With:: Spouse Functional capacity: independent ambulation 12 point system: reviewed and no additional remarkable complaints except as stated (As mentioned in HPI) Exam - Constitutional Vitals: Period Temp Pulse Resp BP Sys/Guzman Pulse Ox Last 24 Hr 97.0 F-100.1 F 88-122 18-26 106-132/66-83 88-100 Exam: Examination: GENERAL: NAD. HEENT: PERRLA. EOMI. Mucous membranes are moist. NECK: Neck is supple. No JVD. No carotid bruit. No thyromegaly. CVS: Regular rhythm but tachycardic. S1 and S2 are normal. RESPIRATORY: Decreased air entry overall with bilateral wheezing. Some bronchial breath sounds in the right base ABDOMEN: Soft and nontender. Bowel sounds are present. No hepatosplenomegaly. EXT: No edema. Peripheral pulses are present. SWEATBAND FLANGER: Patient is awake, alert and oriented to time place and person. Cranial nerves II through XII are grossly intact. Motor strength is 5 over 5 both upper and lower extremities. SKIN: Warm and dry. MSK: No obvious deformity. Results - Labs CBC & BMP: 08/15/16 20:13 08/15/16 20:13 Lab Results: I have reviewed the past 24 hour labs
--- NOTE | 2016-08-16 10:04 | Pulmonology Consult Note ---
Assessment and Plan (1) Asthma with exacerbation Status: Acute Assessment and plan: She is having some bronchospasm and increased dyspnea. Treat with steroids and bronchodilators. She does not tolerate albuterol or theophylline. Current Visit: Yes (2) Right lower lobe pneumonia Status: Acute Assessment and plan: She had fever to 100.1 and cough with change in her sputum colon. I do think she has a bronchopneumonia. Current Visit: Yes (3) History of sarcoidosis Status: Acute Assessment and plan: Not active. May have caused some of the scarring in her lungs. Current Visit: Yes History of Present Illness Chief complaint: Right pleuritic pain, shortness of breath History of present illness: Ms. Clark is a 71 year old female with a history of asthma. She has never been a smoker. She is followed by Dr. Heath in the office for her asthma. He has told her that she has some scarring in her right lower lobe and was considering getting a CT scan. Patient had the onset of right pleuritic pain couple days ago and then developed a cough congestion coughing up some yellow phlegm and had chills and fever. She came to emergency room and was admitted. She does have a new infiltrate in the left lower lobe associated with a good bit of scarring. Difficult to sort it out. She is chronically on Xopenex and is on prednisone 5 mg every other day. She is also on Spiriva. She does not tolerate albuterol or theophylline. Pertinent to note that she has had a right spontaneous pneumothorax last year. It resolved without a chest tube. Home Medications Medication Instructions Recorded Confirmed Type Levalbuterol Inhaler [Xopenex 1 puff INH Q4-6H PRN 10/18/14 08/15/16 History Inhaler] Ibandronate Sodium [Boniva] 150 mg PO Q30D 02/20/15 08/15/16 History Pantoprazole Tab [Protonix Tab] 40 mg PO DAILY 02/20/15 08/15/16 History Aspirin [Ecotrin] 81 mg PO DAILY 10/04/15 08/15/16 History Cetirizine Tab [ZyrTEC Tab] 10 mg PO BEDTIME 10/04/15 08/15/16 History Ipratropium 0.06% Nasal [place] 2 spray BOTH NARES TID PRN 10/04/15 08/15/16 History [Atrovent 0.06% Nasal [place]] QUEtiapine [SEROquel] 25 mg PO BEDTIME 10/04/15 08/15/16 History amLODIPine [Norvasc] 5 mg PO DAILY 02/28/16 08/15/16 History predniSONE TAB [PredniSONE] 5 mg PO QOTHER DAY 02/28/16 08/15/16 History Calcium Carbonate [Tums Chew Tab] 1 tablet PO DAILY PRN 07/16/16 08/15/16 History Estradiol [Vagifem] 1 tablet VAG DIRECTED 07/16/16 08/15/16 History Tiotropium [place] [Spiriva 1.25 mcg PO BID 07/16/16 08/15/16 History Respimat] Allergies Allergy/AdvReac Type Severity Reaction Status Date / Time albuterol AdvReac Palpitation Verified 02/22/15 14:41 s theophylline AdvReac Palpitation Verified 02/22/15 14:41 s 12 point system: reviewed and no additional remarkable complaints except as stated - Constitutional Constitutional: Present: chills, fever(s) - Cardiovascular Cardiovascular: Present: dyspnea on exertion - Respiratory Respiratory: Present: cough, dyspnea, dyspnea on exertion, wheezing - Musculoskeletal Musculoskeletal: Present: back pain Exam (Pulmonay) H&P - Constitutional Vitals: Period Temp Pulse Resp BP Sys/Guzman Pulse Ox Last 24 Hr 97.0 F-100.1 F 88-122 18-26 106-132/66-83 88-100 Exam: Temperature was 100.1 last night. She is afebrile now. Pulse 105. Vital signs otherwise normal. Pupils react to light. Throat is clear. Neck supple no bruits. Chest reveals some expiratory wheezes and rhonchi over the right lower lobe posteriorly. Heart normal rhythm no murmurs no rubs no gallops. Abdomen soft nontender no masses. Bowel sounds present. Extremities no clubbing cyanosis or edema. Calves nontender. Medical,Surgical,& Family Hx - Medical History Cardio: History of: Hypertension Psychological: History of: Anxiety Disorders, Depression Respiratory: History of: Asthma, COPD, Respiratory Problems (Sarcoidosis) Genitourinary: No history of: Kidney Stones Gastrointestinal: History of: GERD - Surgical History Cardiac Surgeries: Patient Denies: Cardiac Catheterization Thoracic Surgeries: Patient denies;: Organ Transplant Neurologic Surgeries: Patient denies: Neurologic Surgery HEENT Surgeries: Surgical HX of: Eye Surgery (cataract surgery) Patient denies: Tonsilectomy & Adenoidectomy Abdominal Surgeries: Surgical HX of: Cholecystectomy, Colonoscopy, EGD Patient denies: Appendectomy Reproductive Surgeries: Surgical HX of;: Hysterectomy Orthopedic Surgeries: Surgical HX of;: Spinal Surgery (laminectomy) - Family History Family History: Reports;: Family Cancer (sister (breast), mother (breast)), Family Hypertension (sisters) - Social History Smoking Status: Never smoker Frequency of Alcohol Use: None Type of Drug Use: None Results - Labs CBC & BMP: 08/15/16 20:13 08/15/16 20:13 Lab Results: I have reviewed the past 24 hour labs - Diagnostic Findings Procedure: Chest x-ray: image reviewed by me (Some scarring in the right lower lobe and probable infiltrate there. Hyperinflation.)
[2016-08-16] MEDS: methylPREDNISolone SOD SUC 40 MG/1 ML VIAL IV SCH ×2 (11:25→22:22)
--- NOTE | 2016-08-16 11:42 | CT Report ---
CT chest wo con Indication: Right-sided pleuritic pain. History of sarcoid. Comparison: None. Technique: CT chest was performed without administration of intravenous contrast. In addition to multiple contiguous axial source images, coronal and sagittal MPR series were provided. The CT examination was performed using one or more of the following dose reduction techniques: Automatic exposure control, adjustment of the mA and kV according to patient size, use of acute or iterative reconstruction techniques. Findings: Extensive parenchymal scarring is demonstrated bilaterally. Areas of volume loss and thickened septal lines are present as are some areas of bronchiectasis most noticeable within the right lower lobe and left upper lobe. Airspace attenuation is noted within the right lower lobe with surrounding groundglass attenuation and prominence of interlobular septal lines. Infectious process could be considered.. Additional groundglass attenuation is noted within the left lung, image #[id number]. No pleural effusions are present. Trace amount pericardial fluid is present. No definite adenopathy is identified. Heart size is normal. The esophagus is grossly unremarkable. No specific abnormality of the bony structures is present. Soft tissues and musculature of the chest wall demonstrate no acute findings. Imaged portion of the upper abdomen demonstrate surgical absence of the gallbladder. A small hiatal hernia is present. Impression: 1. Infectious process right lung base is suggested with additional focal area of groundglass attenuation within the left lung that may reflect an additional focus of inflammatory change. 2. Bilateral parenchymal scarring compatible with given history of sarcoid. 08/16/2016 11:04 AM PROCEDURE INTERPRETED AT [facility] DEPARTMENT OF RADIOLOGY Final Report Signed by: Dr. Min Lee
[2016-08-16] MEDS ORDERED: IPRATROPIUM 0.06% NASAL SPRAY 15 ML BOTTLE BOTH NARES PRN (11:44)
[2016-08-16] MEDS ORDERED: ALBUTEROL 2.5 MG/3 ML NEB RESP TX PRN (11:44)
[2016-08-16] MEDS ORDERED: CALCIUM CARBONATE CHEW 500 MG TABLET PO PRN (11:44)
[2016-08-16] MEDS: PANTOPRAZOLE 40 MG TABLET PO SCH (14:01)
[2016-08-16] MEDS: DOCUSATE SODIUM 100 MG CAPSULE PO SCH ×2 (14:02→20:53)
[2016-08-16] MEDS: ENOXAPARIN 40 MG/0.4 ML SYRINGE SUBCUT SCH (14:10)
[2016-08-16] MEDS: IPRATROPIUM 500 MCG/2.5 ML NEB RESP TX SCH ×2 (18:20→20:51)
[2016-08-16] MEDS: CETIRIZINE 10 MG TABLET PO SCH (20:53)
[2016-08-16] MEDS: QUEtiapine 25 MG TABLET PO SCH (20:53)
[2016-08-16] MEDS ORDERED: IPRATROPIUM 500 MCG/2.5 ML NEB RESP TX SCH (21:00)
[2016-08-16] MEDS: cefTRIAXone 1,000 MG in SODIUM CHLORIDE 0.9% 100 ML IV SCH (22:32)
[2016-08-17 02:28] LABS: Basophils % 0.2 % (0.0-0.8); Hematocrit 34.8 VOL% (35.7-47.0); Hemoglobin 11.7 GM/DL (12.0-16.0); Immature Granulocytes % 0.9 %; Immature Granulocytes Absolute 0.17 #; Lymphocytes # 0.5 10*3/uL (1.4-4.0); Lymphocytes % 2.6 % (21.3-54.2); Mean Corpuscular HGB Conc 33.6 GM/DL (32-36); Mean Corpuscular Hemoglobin 31 PG (27-34); Mean Corpuscular Volume 90.6 FL (87-102); Mean Platelet Volume 11.2 FL (9.6-12.0); Monocytes # 0.7 10*3/uL (0.11-0.8); Monocytes % 3.9 % (1.7-12.7); Neutrophils # 17.4 10*3/uL (1.4-7.4); Neutrophils % 92.4 % (38.7-73.9); Platelet Count 248 T/CUMM (130-400); Red Blood Count 3.84 MC/CUMM (3.8-5.5); White Blood Count 18.8 T/CUMM (4-12)
[2016-08-17 03:04] LABS: Calcium 8.3 MG/DL (8.5-10.1); Potassium 3.8 MMOL/L (3.5-5.1)
[2016-08-17 03:19] LABS: Lymphocytes 3 % (20-55); Segmented Neutrophils 92 % (50-85)
[2016-08-17 03:20] LABS: Platelet Estimate Normal
[2016-08-17 03:21] LABS: Total Cells Counted 100
[2016-08-17] MEDS: IPRATROPIUM 500 MCG/2.5 ML NEB RESP TX SCH ×3 (08:24→20:43)
[2016-08-17] MEDS ORDERED: PANTOPRAZOLE 40 MG TABLET PO SCH (09:00)
[2016-08-17] MEDS: ASPIRIN EC 81 MG TABLET PO SCH (09:51)
[2016-08-17] MEDS: PANTOPRAZOLE 40 MG TABLET PO SCH (09:51)
[2016-08-17] MEDS: amLODIPine 5 MG TABLET PO SCH (09:55)
[2016-08-17] MEDS: DOCUSATE SODIUM 100 MG CAPSULE PO SCH ×2 (09:55→20:35)
--- NOTE | 2016-08-17 10:51 | Pulmonology Progress Note ---
Exam (Progress Note) - Constitutional Vitals: Period Temp Pulse Resp BP Sys/Guzman Pulse Ox Last 24 Hr 96.6 F-97.5 F 71-98 17-20 107-135/53-77 91-99 Results - Labs CBC & BMP: 08/17/16 01:21 08/17/16 01:21
--- NOTE | 2016-08-17 11:11 | Pulmonology Progress Note ---
Pulmonary - PN: Subj Interval history: This is a 71-year-old black female whom I am seeing for . The patient is usually followed by Dr. Del Heath. Patient has a history of asthma. She has had right lower lung scarring and he also had a right pleuritic pain. She complained of cough and chest congestion and yellow phlegm. She had some chills and fever. She has a new infiltrate in her left lower lung.. Initially the patient was febrile with several temps up to 101.1. She has become afebrile. None of her cultures are positive.Her hypoxemia has improved. White blood cell count is 18,892.4% segs. Electrolytes are normal. Creatinine is 0.6 with a BUN of 9. Urinalysis shows no evidence of infection. Labs been reviewed. I have reviewed the patient's chest x-ray. She is also had a CT scan of the chest. I reviewed the report but did not review the scan. Medicines been reviewed. Physical exam. Vital signs. See below. Patient has become afebrile Psychiatric. Oriented 3. This morning she seems to be a little hard to get along with. Face. Symmetrical. Lips and tongue are normal. Neck. Symmetrical. No meningismus. Chest. Hyperinflated with prolonged incomplete expiration. Coarse large airway congestion. Heart. No gallop Abdomen nondistended Extremities no edema Neurologic. Cranial nerves are intact. Long track motor functions intact. Gait is normal. The remainder the exam is noncontributory. Plan. 1. Continue present treatment 2. Check cultures and sensitivity Exam (Progress Note) - Constitutional Vitals: Period Temp Pulse Resp BP Sys/Guzman Pulse Ox Last 24 Hr 96.6 F-97.5 F 71-98 17-20 107-135/53-77 91-99 Results - Labs CBC & BMP: 08/17/16 01:21 08/17/16 01:21
--- NOTE | 2016-08-17 11:58 | Internal Med Progress Note ---
Assessment and Plan (1) Acute bronchopneumonia Status: Acute Assessment and plan: 71-year-old female admitted to acute care * Acute right middle lobe pneumonia. CT scan of the chest noted. White count is up today. It is partly because of steroid * Asthma. She will be continued on bronchodilators and steroids * History of sarcoidosis. Stable * Depression. Continue current treatment * Hypertension. Continue blood pressure medication * Discussed with patient Current Visit: Yes (2) Asthma Status: Acute Current Visit: Yes (3) History of sarcoidosis Status: Acute Current Visit: Yes (4) Hypertension Status: Acute Current Visit: Yes (5) Depression Status: Acute Current Visit: No (6) Gastroesophageal reflux disease Status: Acute Current Visit: No Internal Medicine - PN: Subj Interval history: She is feeling better this morning. She coughed a lot during the night Exam (Progress Note) - Constitutional Vitals: Period Temp Pulse Resp BP Sys/Guzman Pulse Ox Last 24 Hr 96.6 F-97.5 F 71-98 17-20 99-135/53-77 91-99 Exam: Examination: GENERAL: NAD. NECK: Neck is supple. CVS: Regular rate and rhythm. S1 and S2 are normal. RESPIRATORY: Better air entry. Decreased rhonchi ABDOMEN: Soft and nontender. EXT: No edema. MACHINE II COREMAKER: Nonfocal MSK: No obvious deformity. Results - Labs CBC & BMP: 08/17/16 01:21 08/17/16 01:21 Lab Results: I have reviewed the past 24 hour labs
[2016-08-17] MEDS: methylPREDNISolone SOD SUC 40 MG/1 ML VIAL IV SCH ×2 (12:04→22:06)
[2016-08-17] MEDS: ENOXAPARIN 40 MG/0.4 ML SYRINGE SUBCUT SCH (14:54)
[2016-08-17] MEDS: BENZONATATE 100 MG CAPSULE PO SCH (20:35)
[2016-08-17] MEDS: CETIRIZINE 10 MG TABLET PO SCH (20:35)
[2016-08-17] MEDS: QUEtiapine 25 MG TABLET PO SCH (20:35)
[2016-08-17] MEDS: AZITHROMYCIN 250 MG TABLET PO SCH (20:35)
[2016-08-17] MEDS: cefTRIAXone 1,000 MG in SODIUM CHLORIDE 0.9% 100 ML IV SCH (23:00)
--- NOTE | 2016-08-18 07:36 | Internal Med Progress Note ---
Assessment and Plan (1) Acute bronchopneumonia Status: Acute Assessment and plan: 71-year-old female admitted to acute care * Acute right middle lobe pneumonia. Improving clinically. Will repeat chest x -ray in the morning * Asthma. Will taper down steroids * History of sarcoidosis. Stable * Depression. Continue current treatment * Hypertension. Continue blood pressure medication * Discussed with patient Current Visit: Yes (2) Asthma Status: Acute Current Visit: Yes (3) History of sarcoidosis Status: Acute Current Visit: Yes (4) Hypertension Status: Acute Current Visit: Yes (5) Depression Status: Acute Current Visit: No (6) Gastroesophageal reflux disease Status: Acute Current Visit: No Internal Medicine - PN: Subj Interval history: She is feeling better this morning. Her cough has improved. She is not having any chest pain. Exam (Progress Note) - Constitutional Vitals: Period Temp Pulse Resp BP Sys/Guzman Pulse Ox Last 24 Hr 97 F-97.8 F 80-97 16-20 99-121/57-69 95-100 Exam: Examination: GENERAL: NAD. NECK: Neck is supple. CVS: Regular rate and rhythm. S1 and S2 are normal. RESPIRATORY: Better air entry. Decreased rhonchi ABDOMEN: Soft and nontender. EXT: No edema. Results - Labs CBC & BMP: 08/17/16 01:21 08/17/16 01:21 Lab Results: I have reviewed the past 24 hour labs
[2016-08-18] MEDS: IPRATROPIUM 500 MCG/2.5 ML NEB RESP TX SCH ×4 (07:45→20:50)
[2016-08-18] MEDS: ASPIRIN EC 81 MG TABLET PO SCH (09:24)
[2016-08-18] MEDS: BENZONATATE 100 MG CAPSULE PO SCH ×2 (09:25→21:03)
[2016-08-18] MEDS: PANTOPRAZOLE 40 MG TABLET PO SCH (09:26)
[2016-08-18] MEDS: DOCUSATE SODIUM 100 MG CAPSULE PO SCH ×2 (09:27→21:03)
[2016-08-18] MEDS: amLODIPine 5 MG TABLET PO SCH ×2 (09:28→18:24)
[2016-08-18] MEDS: methylPREDNISolone SOD SUC 40 MG/1 ML VIAL IV SCH ×2 (11:18→23:41)
--- NOTE | 2016-08-18 12:17 | Pulmonology Progress Note ---
Pulmonary - PN: Subj Interval history: I did not see the patient today. Dr. Del Heath will see her tomorrow. Exam (Progress Note) - Constitutional Vitals: Period Temp Pulse Resp BP Sys/Guzman Pulse Ox Last 24 Hr 97 F-97.8 F 80-97 16-20 105-129/57-76 96-100 Results - Labs CBC & BMP: 08/17/16 01:21 08/17/16 01:21
[2016-08-18] MEDS: ENOXAPARIN 40 MG/0.4 ML SYRINGE SUBCUT SCH (14:49)
[2016-08-18] MEDS: QUEtiapine 25 MG TABLET PO SCH (21:03)
[2016-08-18] MEDS: AZITHROMYCIN 250 MG TABLET PO SCH (21:03)
[2016-08-18] MEDS: CETIRIZINE 10 MG TABLET PO SCH (21:03)
[2016-08-18] MEDS: cefTRIAXone 1,000 MG in SODIUM CHLORIDE 0.9% 100 ML IV SCH (23:41)
[2016-08-19 06:10] LABS: Basophils % 0.1 % (0.0-0.8); Eosinophils % 0.1 % (0.00-10.9); Hematocrit 36.4 VOL% (35.7-47.0); Hemoglobin 12.2 GM/DL (12.0-16.0); Immature Granulocytes % 2.6 %; Immature Granulocytes Absolute 0.41 #; Lymphocytes # 0.6 10*3/uL (1.4-4.0); Lymphocytes % 3.5 % (21.3-54.2); Mean Corpuscular HGB Conc 33.5 GM/DL (32-36); Mean Corpuscular Hemoglobin 31 PG (27-34); Mean Corpuscular Volume 92.4 FL (87-102); Mean Platelet Volume 10.5 FL (9.6-12.0); Monocytes # 0.4 10*3/uL (0.11-0.8); Monocytes % 2.8 % (1.7-12.7); Neutrophils # 14.4 10*3/uL (1.4-7.4); Neutrophils % 90.9 % (38.7-73.9); Platelet Count 300 T/CUMM (130-400); Red Blood Count 3.94 MC/CUMM (3.8-5.5); Red Cell Distribution Width 14.5 % (9.3-17.3); White Blood Count 15.9 T/CUMM (4-12)
[2016-08-19 06:39] LABS: Calcium 8.5 MG/DL (8.5-10.1); Osmolality,Calculated 284.1 MOS/KG (273-304); Potassium 4.6 MMOL/L (3.5-5.1)
[2016-08-19 06:45] LABS: Band Neutrophils 1 % (0-10); Hypochromasia Slight; Lymphocytes 1 % (20-55); Platelet Estimate Normal; Segmented Neutrophils 95 % (50-85); Total Cells Counted 100
[2016-08-19] MEDS: IPRATROPIUM 500 MCG/2.5 ML NEB RESP TX SCH ×5 (07:18→19:40)
[2016-08-19] MEDS: BENZONATATE 100 MG CAPSULE PO SCH ×2 (08:49→20:29)
[2016-08-19] MEDS: ASPIRIN EC 81 MG TABLET PO SCH (08:49)
[2016-08-19] MEDS: amLODIPine 5 MG TABLET PO SCH (08:50)
[2016-08-19] MEDS: DOCUSATE SODIUM 100 MG CAPSULE PO SCH ×2 (08:50→20:29)
[2016-08-19] MEDS: PANTOPRAZOLE 40 MG TABLET PO SCH (08:58)
--- NOTE | 2016-08-19 08:59 | XRay Report ---
XR chest 2V Indication: Wheezing Comparison: Chest x-ray dated August 15, 2016 Technique: Frontal and lateral views of the chest. Findings: The cardiomediastinal silhouette is stable in configuration. Chronic scarring of the bilateral lungs. Interval improved bilateral lower lung opacification suggesting improved infectious/inflammatory process. There is continued right infrahilar atelectasis/consolidation/scarring. Osseous and surrounding soft tissue structures appear unchanged. IMPRESSION: As above. PROCEDURE INTERPRETED AT [facility] DEPARTMENT OF RADIOLOGY Final Report Signed by: Dr Erasmo Herrmann
[2016-08-19] MEDS ORDERED: VAGIFEM VAG SCH (09:00)
--- NOTE | 2016-08-19 09:29 | Internal Med Progress Note ---
Assessment and Plan (1) Acute bronchopneumonia Status: Acute Assessment and plan: 71-year-old female admitted to acute care * Acute right middle lobe pneumonia. Much better today. Her x-ray has improved * Asthma. Will taper down steroids * History of sarcoidosis. Stable * Depression. Continue current treatment * Hypertension. Continue blood pressure medication * Hopefully home in the next few days Current Visit: Yes (2) Asthma Status: Acute Current Visit: Yes (3) History of sarcoidosis Status: Acute Current Visit: Yes (4) Hypertension Status: Acute Current Visit: Yes (5) Depression Status: Acute Current Visit: No (6) Gastroesophageal reflux disease Status: Acute Current Visit: No Internal Medicine - PN: Subj Interval history: She is feeling better this morning. Her cough has improved. Her appetite is better. No chest pain or shortness of breath Exam (Progress Note) - Constitutional Vitals: Period Temp Pulse Resp BP Sys/Guzman Pulse Ox Last 24 Hr 97.1 F-98.3 F 78-91 16-20 114-145/71-80 96-100 Exam: Examination: GENERAL: NAD. NECK: Neck is supple. CVS: Regular rate and rhythm. S1 and S2 are normal. RESPIRATORY: Better air entry. ABDOMEN: Soft and nontender. EXT: No edema. Results - Labs CBC & BMP: 08/19/16 05:13 08/19/16 05:13 Lab Results: I have reviewed the past 24 hour labs Specialty Discharge - Follow Up or Referrals Follow up with: Devante Ramos MD [Physician] -
[2016-08-19] MEDS ORDERED: BONIVA PO SCH (11:45)
[2016-08-19] MEDS: ENOXAPARIN 40 MG/0.4 ML SYRINGE SUBCUT SCH (13:20)
--- NOTE | 2016-08-19 17:28 | Pulmonology Progress Note ---
Pulmonary - PN: Subj Interval history: Patient is a 71-year-old black lady that has sarcoidosis with some pulmonary fibrosis. She also has mild asthma with some obstructive airways disease. She came in last week with some coughing and congestion and was felt to have pneumonia. She says she is breathing much better and feeling better. Her cough and sputum production have improved. Her shortness of breath is much better. She says she is tolerating medicines okay. Exam (Progress Note) - Constitutional Vitals: Period Temp Pulse Resp BP Sys/Guzman Pulse Ox Last 24 Hr 97.4 F-98.1 F 78-88 16-20 114-133/72-80 95-100 General appearance: normal weight, no acute distress (She looks quite comfortable now.) - Head Head exam: Present: normal inspection, normocephalic - Eye Eye exam: Present: EOMI. Absent: scleral icterus Pupils: Present: STANLEY - ENT ENT exam: Present: normal exam - Neck Neck exam: Present: normal inspection. Absent: lymphadenopathy, thyromegaly - Respiratory Respiratory exam: Present: prolonged expiratory phase, wheezes (She still has a faint wheeze bilaterally.). Absent: accessory muscle use - Cardiovascular Cardiovascular exam: Present: regular rate and rhythm. Absent: gallop, systolic murmur - GI/Abdominal GI/Abdominal exam: Present: normal bowel sounds, soft. Absent: organomegaly, tenderness - Extremities Exam Extremities exam: Absent: calf tenderness, edema - Neurological Exam Neurological exam: Present: alert, oriented X3, CN II-XII intact - Psychiatric Psychiatric exam: Present: normal affect. 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 This has been reasonably stable. Current Visit: Yes (2) History of sarcoidosis Status: Acute Assessment and plan: The patient has sarcoidosis with scarring in the lungs. She is reasonably stable at present with no definite activity. Current Visit: Yes (3) Asthma with exacerbation Status: Acute Assessment and plan: The patient does have some obstructive airways disease and is still wheezing a little. She will continue with bronchodilator therapy. I recently gave her Stiolto to try for maintenance therapy. Current Visit: Yes (4) Right lower lobe pneumonia Status: Acute Assessment and plan: She is getting antibiotics for her pneumonia. Clinically she is doing better Current Visit: Yes Specialty Discharge - Follow Up or Referrals Follow up with: Devante Ramos MD [Physician] -
[2016-08-19] MEDS: CETIRIZINE 10 MG TABLET PO SCH (20:29)
[2016-08-19] MEDS: predniSONE 10 MG TABLET PO SCH (20:30)
[2016-08-19] MEDS: AZITHROMYCIN 250 MG TABLET PO SCH (20:30)
[2016-08-19] MEDS: QUEtiapine 25 MG TABLET PO SCH (20:31)
[2016-08-19] MEDS: cefTRIAXone 1,000 MG in SODIUM CHLORIDE 0.9% 100 ML IV SCH (22:30)
[2016-08-20 07:01] VITALS: BP 135/73
[2016-08-20] MEDS: IPRATROPIUM 500 MCG/2.5 ML NEB RESP TX SCH (07:35)
--- NOTE | 2016-08-20 07:57 | Pulmonology Progress Note ---
Pulmonary - PN: Subj Interval history: Patient is a 71-year-old black lady that has sarcoidosis with some pulmonary fibrosis. She also has mild asthma with some obstructive airways disease. She came in last week with some coughing and congestion and was felt to have pneumonia. She says she is breathing much better and feeling better. She says she had a fairly good night and her shortness of breath has improved. She is not coughing up any sputum now. She says she feels better and wants to go home. Exam (Progress Note) - Constitutional Vitals: Period Temp Pulse Resp BP Sys/Guzman Pulse Ox Last 24 Hr 97.2 F-97.7 F 78-103 16-20 111-135/68-74 95-100 Exam: General appearance: normal weight, no acute distress (She looks quite comfortable now. She is not having any distress.) - Head Head exam: Present: normal inspection, normocephalic - Eye Eye exam: Present: EOMI. Absent: scleral icterus Pupils: Present: STANLEY - ENT ENT exam: Present: normal exam - Neck Neck exam: Present: normal inspection. Absent: lymphadenopathy, thyromegaly - Respiratory Respiratory exam: Present: She has good breath sounds bilaterally and her wheezing is much better. She is moving air okay today. - Cardiovascular Cardiovascular exam: Present: regular rate and rhythm. Absent: gallop, systolic murmur - GI/Abdominal GI/Abdominal exam: Present: normal bowel sounds, soft. Absent: organomegaly, tenderness - Extremities Exam Extremities exam: Absent: calf tenderness, edema - Neurological Exam Neurological exam: Present: alert, oriented X3, CN II-XII intact, no focal deficits. - Psychiatric Psychiatric exam: Present: normal affect. 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 This has been reasonably stable. Her chest x-ray looks back to baseline. Current Visit: Yes (2) History of sarcoidosis Status: Acute Assessment and plan: The patient has sarcoidosis with scarring in the lungs. She is reasonably stable at present with no definite activity. Current Visit: Yes (3) Asthma with exacerbation Status: Acute Assessment and plan: The patient does have some obstructive airways disease and tolerating bronchodilator therapy. She feels like she is doing better today. Current Visit: Yes (4) Right lower lobe pneumonia Status: Acute Assessment and plan: She is getting antibiotics for her pneumonia. Clinically she is doing better. Her pneumonia looks better on x-ray. She says she wants to go home and can taper her steroids and take antibiotics. Current Visit: Yes Specialty Discharge - Follow Up or Referrals Follow up with: Devante Ramos MD [Physician] -
[2016-08-20] MEDS: DOCUSATE SODIUM 100 MG CAPSULE PO SCH (09:45)
[2016-08-20] MEDS: PANTOPRAZOLE 40 MG TABLET PO SCH (09:45)
[2016-08-20] MEDS: ASPIRIN EC 81 MG TABLET PO SCH (09:45)
[2016-08-20] MEDS: amLODIPine 5 MG TABLET PO SCH (09:45)
[2016-08-20] MEDS: BENZONATATE 100 MG CAPSULE PO SCH (09:45)
[2016-08-20] MEDS: predniSONE 10 MG TABLET PO SCH (09:45)
--- NOTE | 2016-08-20 09:46 | Discharge Summary ---
Hospital Course - Hospital Course Hospital Course: Patient is 71-year-old female with history of multiple medical problems including asthma, sarcoidosis, hypertension, depression, anxiety, paroxysmal atrial fibrillation. She was admitted with acute shortness of breath and was found to have bilateral pneumonia. She was started on IV antibiotics and respiratory treatment along with IV steroids. She was seen in consultation by Dr. Heath. We have adjusted her medications. She has improved over last 4 days. We have tapered down her steroids. She will be discharged home. Her medications and discharge are listed on the discharge sheet. I will follow her up in the office on next scheduled visit which is in September. Diagnosis - Discharge Diagnosis (1) Acute bronchopneumonia Status: Acute (2) Asthma Status: Acute (3) History of sarcoidosis Status: Acute (4) Hypertension Status: Acute (5) Depression Status: Acute (6) Gastroesophageal reflux disease Status: Acute Specialty Discharge - Follow Up or Referrals Follow up with: Devante Ramos MD [Physician] - Discharge Plan - Discharge Data Disposition: Disch To Home/Self Care Condition at Discharge: Stable Discharge Diet: advance to your usual diet Activity: resume usual activities as tolerated - Discharge Medications New Benzonatate [Tessalon] 200 mg PO BID #14 capsule predniSONE TAB [PredniSONE] 10 mg PO BID #10 tablet Azithromycin Tab [Zithromax Tab] 500 mg PO BEDTIME #5 tablet Continue Levalbuterol Inhaler [Xopenex Inhaler] 1 puff INH Q4-6H PRN PRN Reason: Shortness Of Breath Pantoprazole Tab [Protonix Tab] 40 mg PO DAILY Ibandronate Sodium [Boniva] 150 mg PO Q30D Ipratropium 0.06% Nasal [place] [Atrovent 0.06% Nasal [place]] 2 spray BOTH NARES TID PRN PRN Reason: Allergy Symptoms Cetirizine Tab [ZyrTEC Tab] 10 mg PO BEDTIME Aspirin [Ecotrin] 81 mg PO DAILY QUEtiapine [SEROquel] 25 mg PO BEDTIME predniSONE TAB [PredniSONE] 5 mg PO QOTHER DAY amLODIPine [Norvasc] 5 mg PO DAILY Calcium Carbonate [Tums Chew Tab] 1 tablet PO DAILY PRN PRN Reason: Heartburn Tiotropium [place] [Spiriva Respimat] 1.25 mcg PO BID Estradiol [Vagifem] 1 tablet VAG DIRECTED - Follow Up or Referral Follow Up: Devante Ramos MD [Physician] - - Forms/Instructions Instructions: Asthma (DC), Pneumonia (DC), Pneumonia (GEN) Additional Discharge Instructions: Patient to keep current appointment next month at office with chest x-ray. Please call in the new medications to the pharmacy Exam - Constitutional Vitals: Period Temp Pulse Resp BP Sys/Guzman Pulse Ox Last 24 Hr 97.2 F-97.7 F 78-103 16-20 111-135/68-74 95-100 Exam: Examination: GENERAL: NAD. NECK: Neck is supple. CVS: Regular rate and rhythm. S1 and S2 are normal. RESPIRATORY: Better air entry. ABDOMEN: Soft and nontender. EXT: No edema. Discharge Results Procedures and tests throughout hospitalization: Pending Orders 08/15/16 20:59 Blood Culture Stat Labs on day of discharge: Preliminary micro results at discharge 08/15/16 20:59 Blood Culture - Preliminary Blood No growth at 3 days 08/15/16 20:59 Blood Culture - Preliminary Blood No growth at 3 days DS: Provider Date of admission: 08/15/16 20:45 Primary care physician: . No PCP Attending physician on admission: Devante Ramos MD Consults: 08/15/16 20:45 Consult to Case Mgmt/Social Srvs [CONS] Routine Reason for Case Mgmt/Social Srvs: Discharge Planning 08/15/16 20:47 Consult to Physician [CONS] Routine Comment: Consulting Provider: Delvis Heath Consulting Provider Notified: Yes When should Consulting Provider be notified: Now Consult to Specialist Group: Pulmonology When should Consulting Provider be notified: In am Person Notified: darlene called Date Notified: 08/16/16 Time Notified: 08:43 Discharging clinician: Devante Ramos MD
[2016-08-20] MEDS ORDERED: NYSTATIN 500,000 UNIT/5 ML UDCUP SWISH/SWAL SCH (11:00)
== END 2016-08-20 11:10 | disposition home or self-care (01) | DRG 190 ==
LOC: N.ED 19:34 → N.EDINP 20:45 → N.3E 21:30
PROVIDERS: ADMIT Internal Medicine; ATTEND Internal Medicine

== ENCOUNTER 2017-01-23 18:05 | Inpatient (IN) ==
[2017-01-23] MEDS ORDERED: ONDANSETRON 4 MG/2 ML VIAL IV STA (19:39)
[2017-01-23] MEDS ORDERED: KETOROLAC 30 MG/1 ML VIAL IV STA (19:40)
[2017-01-23 19:42] LABS: Basophils % 0.2 % (0.0-0.8); Eosinophils % 0.1 % (0.00-10.9); Hematocrit 48.2 VOL% (35.7-47.0); Hemoglobin 16.7 GM/DL (12.0-16.0); Immature Granulocytes % 1.5 %; Immature Granulocytes Absolute 0.24 #; Lymphocytes # 1.5 10*3/uL (1.4-4.0); Lymphocytes % 9.1 % (21.3-54.2); Mean Corpuscular HGB Conc 34.6 GM/DL (32-36); Mean Corpuscular Hemoglobin 31 PG (27-34); Mean Corpuscular Volume 90.3 FL (87-102); Mean Platelet Volume 9.7 FL (9.6-12.0); Monocytes # 1.3 10*3/uL (0.11-0.8); Monocytes % 8.1 % (1.7-12.7); Platelet Count 227 T/CUMM (130-400); Red Blood Count 5.34 MC/CUMM (3.8-5.5); Red Cell Distribution Width 14.5 % (9.3-17.3); White Blood Count 16.1 T/CUMM (4-12)
[2017-01-23 19:50] LABS: Apearance,Urine Slightly Hazy (Clear); Bacteria,Urine Occasional /HPF (Few); Bilirubin,Urine Negative (Negative); Blood, Urine Small mg/dL (Negative); Glucose,Urine (UA) Negative (Negative); Hyaline Casts,Urine 9 /LPF (0-3); Ketones,Urine 80 mg/dL (Negative); Mucus,Urine Moderate /LPF (Occasional); Nitrite,Urine Negative (Negative); Protein,Urine 100 MG/DL; RBC,Urine 2 /HPF (0-4); Squamous Epithelial Cell,Urine Occasional /HPF (0-10); Urine Color Amber (Yellow); Urine Specific Gravity 1.025 (1.001-1.035); Urine Urobilinogen < 2.0 EU/DL (0.2-1.0); WBC,Urine 2 /HPF (0-6)
[2017-01-23] MEDS ORDERED: KETOROLAC 30 MG/1 ML VIAL ONE (20:04)
[2017-01-23] MEDS ORDERED: ONDANSETRON 4 MG/2 ML VIAL ONE (20:04)
[2017-01-23] MEDS ORDERED: MORPHINE 2 MG/1 ML SYRINGE IV STA (20:14)
[2017-01-23 20:20] LABS: Bilirubin,Total 1.6 MG/DL (0.2-1.0); Calcium 9.5 MG/DL (8.5-10.1); Potassium 3.7 MMOL/L (3.5-5.1); Total Protein 6.9 G/DL (6.4-8.3)
[2017-01-23] MEDS ORDERED: MORPHINE 2 MG/1 ML SYRINGE ONE (20:47)
[2017-01-23] MEDS: cefOXitin 2,000 MG in SYRINGE 1 EACH IV SCH (22:00)
[2017-01-23] MEDS: DEXTROSE 5% LACTATED RINGERS 1,000 ML IV SCH (22:01)
[2017-01-24] MEDS: cefOXitin 2,000 MG in SYRINGE 1 EACH IV SCH ×4 (04:25→19:57)
[2017-01-24] MEDS: DEXTROSE 5% LACTATED RINGERS 1,000 ML IV SCH ×3 (04:26→19:57)
[2017-01-24 06:20] LABS: Basophils % 0.3 % (0.0-0.8); Eosinophils % 0.3 % (0.00-10.9); Hematocrit 41.7 VOL% (35.7-47.0); Hemoglobin 14.3 GM/DL (12.0-16.0); Immature Granulocytes % 1.4 %; Immature Granulocytes Absolute 0.19 #; Lymphocytes # 1.4 10*3/uL (1.4-4.0); Lymphocytes % 10.3 % (21.3-54.2); Mean Corpuscular HGB Conc 34.3 GM/DL (32-36); Mean Corpuscular Hemoglobin 31 PG (27-34); Mean Corpuscular Volume 90.3 FL (87-102); Monocytes # 1.2 10*3/uL (0.11-0.8); Monocytes % 8.4 % (1.7-12.7); Neutrophils % 79.3 % (38.7-73.9); Platelet Count 211 T/CUMM (130-400); Red Blood Count 4.62 MC/CUMM (3.8-5.5); Red Cell Distribution Width 14.6 % (9.3-17.3); White Blood Count 13.8 T/CUMM (4-12)
[2017-01-24 06:51] LABS: Albumin 3.2 G/DL (3.4-5.0); Bilirubin,Total 1.5 MG/DL (0.2-1.0); Calcium 8.4 MG/DL (8.5-10.1); Osmolality,Calculated 281.8 MOS/KG (273-304); Potassium 3.3 MMOL/L (3.5-5.1); Total Protein 5.5 G/DL (6.4-8.3)
[2017-01-24] MEDS: PANTOPRAZOLE 40 MG TABLET PO SCH (09:22)
[2017-01-24] MEDS ORDERED: IPRATROPIUM 0.06% NASAL SPRAY 15 ML BOTTLE BOTH NARES PRN (12:32)
[2017-01-24] MEDS: ONDANSETRON 4 MG/2 ML VIAL IV PRN (14:48)
[2017-01-24] MEDS: MORPHINE 2 MG/1 ML SYRINGE IV PRN ×3 (15:25→21:05)
[2017-01-24] MEDS: IPRATROPIUM 500 MCG/2.5 ML NEB RESP TX PRN (20:51)
[2017-01-25] MEDS: cefOXitin 2,000 MG in SYRINGE 1 EACH IV SCH ×4 (02:34→19:50)
[2017-01-25 03:15] LABS: Basophils % 0.2 % (0.0-0.8); Eosinophils # 0.1 10*3/uL (0.0-0.87); Eosinophils % 0.5 % (0.00-10.9); Hematocrit 39.8 VOL% (35.7-47.0); Hemoglobin 13.3 GM/DL (12.0-16.0); Immature Granulocytes % 1.5 %; Immature Granulocytes Absolute 0.19 #; Lymphocytes # 1.3 10*3/uL (1.4-4.0); Lymphocytes % 10.2 % (21.3-54.2); Mean Corpuscular HGB Conc 33.4 GM/DL (32-36); Mean Corpuscular Hemoglobin 31 PG (27-34); Mean Corpuscular Volume 93.2 FL (87-102); Mean Platelet Volume 10.3 FL (9.6-12.0); Monocytes % 8.2 % (1.7-12.7); Neutrophils # 9.9 10*3/uL (1.4-7.4); Neutrophils % 79.4 % (38.7-73.9); Platelet Count 184 T/CUMM (130-400); Red Blood Count 4.27 MC/CUMM (3.8-5.5); Red Cell Distribution Width 14.6 % (9.3-17.3); White Blood Count 12.5 T/CUMM (4-12)
[2017-01-25 03:39] LABS: Calcium 8.3 MG/DL (8.5-10.1); Osmolality,Calculated 284.1 MOS/KG (273-304); Potassium 3.7 MMOL/L (3.5-5.1)
[2017-01-25] MEDS: DEXTROSE 5% LACTATED RINGERS 1,000 ML IV SCH ×3 (03:50→22:03)
[2017-01-25] MEDS: MORPHINE 2 MG/1 ML SYRINGE IV PRN ×3 (07:05→19:49)
[2017-01-25] MEDS: PANTOPRAZOLE 40 MG TABLET PO SCH (09:29)
[2017-01-26] MEDS: cefOXitin 2,000 MG in SYRINGE 1 EACH IV SCH ×3 (02:56→16:28)
[2017-01-26] MEDS: MORPHINE 2 MG/1 ML SYRINGE IV PRN ×2 (03:29→06:02)
[2017-01-26 04:45] LABS: Basophils % 0.3 % (0.0-0.8); Eosinophils # 0.1 10*3/uL (0.0-0.87); Eosinophils % 0.7 % (0.00-10.9); Hematocrit 37.2 VOL% (35.7-47.0); Hemoglobin 12.5 GM/DL (12.0-16.0); Immature Granulocytes % 1.2 %; Immature Granulocytes Absolute 0.13 #; Lymphocytes # 0.8 10*3/uL (1.4-4.0); Lymphocytes % 7.2 % (21.3-54.2); Mean Corpuscular HGB Conc 33.6 GM/DL (32-36); Mean Corpuscular Hemoglobin 31 PG (27-34); Mean Corpuscular Volume 93.2 FL (87-102); Monocytes # 0.9 10*3/uL (0.11-0.8); Monocytes % 8.7 % (1.7-12.7); Neutrophils # 8.8 10*3/uL (1.4-7.4); Neutrophils % 81.9 % (38.7-73.9); Platelet Count 171 T/CUMM (130-400); Red Blood Count 3.99 MC/CUMM (3.8-5.5); White Blood Count 10.8 T/CUMM (4-12)
[2017-01-26 05:14] LABS: Calcium 7.9 MG/DL (8.5-10.1); Magnesium 2.3 MG/DL (1.8-2.4); Osmolality,Calculated 277.4 MOS/KG (273-304)
[2017-01-26] MEDS: DEXTROSE 5% LACTATED RINGERS 1,000 ML IV SCH ×2 (05:54→23:55)
[2017-01-26] MEDS: PANTOPRAZOLE 40 MG TABLET PO SCH (08:55)
[2017-01-26] MEDS ORDERED: ALBUTEROL 2.5 MG/3 ML NEB RESP TX ONE (09:57)
[2017-01-26] MEDS ORDERED: cefOXitin 2,000 MG in SYRINGE 1 EACH IV ONE (10:26)
[2017-01-26] MEDS: POTASSIUM CHLORIDE RIDER 10 MEQ in PREMIX 1 EACH IV PRN (11:11)
[2017-01-26] MEDS ORDERED: ALBUMIN 5% 12.5 GM/250 ML VIAL IV ONE (14:45)
[2017-01-26] MEDS ORDERED: PHENYLEPHRINE DRIP 20 MG/250 ML PREMIX IV ONE ×2 (14:45→19:24)
[2017-01-26] MEDS ORDERED: fentaNYL 100 MCG/2 ML VIAL ONE ×3 (16:55→19:32)
[2017-01-26 18:16] LABS: Apearance,Urine CLEAR (Clear); Bilirubin,Urine Negative (Negative); Blood, Urine Negative (Negative); Glucose,Urine (UA) Negative (Negative); Ketones,Urine Negative (Negative); Mucus,Urine Occasional /LPF (Occasional); Nitrite,Urine Negative (Negative); Protein,Urine Negative; RBC,Urine <1 /HPF (0-4); Squamous Epithelial Cell,Urine Occasional /HPF (0-10); Urine Color Yellow (Yellow); Urine Specific Gravity 1.014 (1.001-1.035); Urine Urobilinogen < 2.0 EU/DL (0.2-1.0); WBC,Urine <1 /HPF (0-6)
[2017-01-26] MEDS: PROPOFOL 1,000 MG/100 ML BOTTLE IV SCH (18:44)
[2017-01-26 18:59] LABS: Basophils % 0.2 % (0.0-0.8); Hematocrit 36.5 VOL% (35.7-47.0); Hemoglobin 12.3 GM/DL (12.0-16.0); Immature Granulocytes % 0.7 %; Immature Granulocytes Absolute 0.07 #; Lymphocytes # 0.4 10*3/uL (1.4-4.0); Lymphocytes % 4.2 % (21.3-54.2); Mean Corpuscular HGB Conc 33.7 GM/DL (32-36); Mean Corpuscular Hemoglobin 32 PG (27-34); Mean Corpuscular Volume 93.6 FL (87-102); Mean Platelet Volume 10.1 FL (9.6-12.0); Monocytes # 0.5 10*3/uL (0.11-0.8); Monocytes % 4.7 % (1.7-12.7); Neutrophils # 9.1 10*3/uL (1.4-7.4); Neutrophils % 90.2 % (38.7-73.9); Platelet Count 152 T/CUMM (130-400); Red Cell Distribution Width 13.9 % (9.3-17.3); White Blood Count 10.1 T/CUMM (4-12)
[2017-01-26] MEDS: LACTATED RINGERS 1,000 ML IV SCH (19:00)
[2017-01-26 19:14] LABS: ABG Base Excess 4.4 MMOL/L (-2.5-2.5); ABG HCO3 28.4 MMOL/L (20-26); ABG PCO2 30.5 MM HG (35-48); ABG PH 7.544 (7.35-7.45); ABG TCO2 22.9 MMOL/L (23-27); Allen Test Positive; Pt O2 Delivery Device Ventilator
[2017-01-26 19:18] LABS: Calcium 7.4 MG/DL (8.5-10.1); Magnesium 1.7 MG/DL (1.8-2.4); Osmolality,Calculated 272.8 MOS/KG (273-304); Potassium 3.9 MMOL/L (3.5-5.1)
[2017-01-26] MEDS ORDERED: SEVOFLURANE 1 UNIT/15 MINUTE INH ONE (19:24)
[2017-01-26] MEDS ORDERED: KETOROLAC 30 MG/1 ML VIAL ONE (19:25)
[2017-01-26] MEDS ORDERED: methylPREDNISolone SOD SUC 125 MG/2 ML VIAL ONE (19:25)
[2017-01-26] MEDS ORDERED: MIDAZOLAM 2 MG/2 ML VIAL ONE (19:25)
[2017-01-26] MEDS ORDERED: ACETAMINOPHEN 1,000 MG/100 ML VIAL IV ONE (19:25)
[2017-01-26] MEDS ORDERED: ONDANSETRON 4 MG/2 ML VIAL ONE (19:25)
[2017-01-26] MEDS: HYDROmorphone 2 MG/1 ML VIAL IV PRN (20:28)
[2017-01-26] MEDS ORDERED: DILTIAZEM 100 MG VIAL.ADD IV ONE (21:00)
[2017-01-26] MEDS ORDERED: SODIUM CHLORIDE 0.9% 100 ML IV ONE (21:01)
[2017-01-26 21:10] LABS: Band Neutrophils 4 % (0-10); Lymphocytes 2 % (20-55); Platelet Estimate Normal; Segmented Neutrophils 90 % (50-85); Total Cells Counted 100
[2017-01-26] MEDS: DILTIAZEM INJ 100 MG in SODIUM CHLORIDE 0.9% 100 ML IV SCH (21:14)
[2017-01-26 21:55] LABS: Troponin I Only 0.033 NG/ML (0.00-0.045)
[2017-01-26] MEDS ORDERED: MAGNESIUM SULF RIDER 4 GM in PREMIX 1 EACH IV PRN (22:20)
[2017-01-26] MEDS ORDERED: MAGNESIUM SULF RIDER 2 GM in PREMIX 1 EACH IV PRN (22:20)
[2017-01-26] MEDS ORDERED: CALCIUM CHLORIDE 1,000 MG/10 ML SYRINGE IV ONE (22:20)
[2017-01-26] MEDS ORDERED: CALCIUM GLUCONATE 2,000 MG in SODIUM CHLORIDE 0.9% 100 ML IV ONE (23:30)
[2017-01-27] MEDS: PROPOFOL 1,000 MG/100 ML BOTTLE IV SCH ×4 (00:10→19:09)
[2017-01-27] MEDS: HYDROmorphone 2 MG/1 ML VIAL IV PRN ×4 (00:39→20:31)
[2017-01-27] MEDS: LACTATED RINGERS 1,000 ML IV SCH ×4 (01:01→21:58)
[2017-01-27 02:39] LABS: ABG Base Excess 3.8 MMOL/L (-2.5-2.5); ABG HCO3 25.4 MMOL/L (20-26); ABG Oxygen Saturation 99.1 % (95-100); ABG PCO2 29.4 MM HG (35-48); ABG PH 7.555 (7.35-7.45); ABG PO2 246.2 MM HG (80-95); ABG TCO2 26.3 MMOL/L (23-27); Allen Test Positive; Pt O2 Delivery Device Ventilator
[2017-01-27 04:40] LABS: Basophils % 0.1 % (0.0-0.8); Hematocrit 33.5 VOL% (35.7-47.0); Hemoglobin 11.7 GM/DL (12.0-16.0); Immature Granulocytes % 0.9 %; Immature Granulocytes Absolute 0.14 #; Lymphocytes # 0.6 10*3/uL (1.4-4.0); Lymphocytes % 3.6 % (21.3-54.2); Mean Corpuscular HGB Conc 34.9 GM/DL (32-36); Mean Corpuscular Hemoglobin 32 PG (27-34); Mean Corpuscular Volume 90.3 FL (87-102); Mean Platelet Volume 10.9 FL (9.6-12.0); Monocytes # 0.7 10*3/uL (0.11-0.8); Monocytes % 4.7 % (1.7-12.7); Neutrophils # 13.9 10*3/uL (1.4-7.4); Neutrophils % 90.7 % (38.7-73.9); Platelet Count 158 T/CUMM (130-400); Red Blood Count 3.71 MC/CUMM (3.8-5.5); Red Cell Distribution Width 14.1 % (9.3-17.3); White Blood Count 15.4 T/CUMM (4-12)
[2017-01-27 05:01] LABS: Calcium 8.2 MG/DL (8.5-10.1); Magnesium 2.6 MG/DL (1.8-2.4); Osmolality,Calculated 270.1 MOS/KG (273-304)
[2017-01-27 05:08] LABS: Free T4 (Free Thyroxine) 1.85 NG/DL (0.76-1.46); Thyroid Stimulating Hormone 0.531 uIU/ml (0.358-3.74)
[2017-01-27 05:11] LABS: Band Neutrophils 9 % (0-10); Giant Platelets Few; Hypochromasia 1+; Lymphocytes 6 % (20-55); Platelet Estimate Normal; Segmented Neutrophils 84 % (50-85); Total Cells Counted 100
[2017-01-27] MEDS ORDERED: PANTOPRAZOLE 40 MG VIAL IV ONE (08:50)
[2017-01-27] MEDS: ENOXAPARIN 40 MG/0.4 ML SYRINGE SUBCUT SCH (08:54)
[2017-01-27] MEDS: ASPIRIN EC 81 MG TABLET PO SCH (09:00)
[2017-01-27] MEDS: PANTOPRAZOLE 40 MG VIAL IV SCH (09:00)
[2017-01-27] MEDS: DILTIAZEM INJ 100 MG in SODIUM CHLORIDE 0.9% 100 ML IV SCH (15:30)
[2017-01-27] MEDS: CETIRIZINE 10 MG TABLET PO SCH (20:43)
[2017-01-28 03:29] LABS: ABG Base Excess 3.7 MMOL/L (-2.5-2.5); ABG HCO3 25.4 MMOL/L (20-26); ABG Oxygen Saturation 98.8 % (95-100); ABG PCO2 29.1 MM HG (35-48); ABG PH 7.558 (7.35-7.45); ABG PO2 181.1 MM HG (80-95); ABG TCO2 26.2 MMOL/L (23-27)
[2017-01-28] MEDS: DILTIAZEM INJ 100 MG in SODIUM CHLORIDE 0.9% 100 ML IV SCH ×4 (03:33→23:59)
[2017-01-28] MEDS: PROPOFOL 1,000 MG/100 ML BOTTLE IV SCH ×3 (03:34→19:05)
[2017-01-28] MEDS: HYDROmorphone 2 MG/1 ML VIAL IV PRN (04:45)
[2017-01-28] MEDS: LACTATED RINGERS 1,000 ML IV SCH ×3 (04:46→18:15)
[2017-01-28 06:00] LABS: Basophils % 0.2 % (0.0-0.8); Eosinophils % 0.3 % (0.00-10.9); Hematocrit 30.4 VOL% (35.7-47.0); Hemoglobin 10.6 GM/DL (12.0-16.0); Immature Granulocytes % 1.4 %; Immature Granulocytes Absolute 0.16 #; Lymphocytes # 0.7 10*3/uL (1.4-4.0); Lymphocytes % 6.3 % (21.3-54.2); Mean Corpuscular HGB Conc 34.9 GM/DL (32-36); Mean Corpuscular Hemoglobin 31 PG (27-34); Mean Corpuscular Volume 89.9 FL (87-102); Mean Platelet Volume 10.4 FL (9.6-12.0); Monocytes # 0.8 10*3/uL (0.11-0.8); Monocytes % 6.4 % (1.7-12.7); Neutrophils # 10.1 10*3/uL (1.4-7.4); Neutrophils % 85.4 % (38.7-73.9); Platelet Count 155 T/CUMM (130-400); Red Blood Count 3.38 MC/CUMM (3.8-5.5); Red Cell Distribution Width 14.8 % (9.3-17.3); White Blood Count 11.8 T/CUMM (4-12)
[2017-01-28 06:30] LABS: Calcium 7.9 MG/DL (8.5-10.1); Osmolality,Calculated 277.4 MOS/KG (273-304); Potassium 3.4 MMOL/L (3.5-5.1)
[2017-01-28] MEDS: PANTOPRAZOLE 40 MG VIAL IV SCH (08:34)
[2017-01-28] MEDS: ENOXAPARIN 40 MG/0.4 ML SYRINGE SUBCUT SCH (08:35)
[2017-01-28] MEDS: ASPIRIN EC 81 MG TABLET PO SCH (08:36)
[2017-01-28 09:40] LABS: ABG Base Excess 2.1 MMOL/L (-2.5-2.5); ABG HCO3 26.3 MMOL/L (20-26); ABG Oxygen Saturation 99.4 % (95-100); ABG PCO2 40.6 MM HG (35-48); ABG PH 7.425 (7.35-7.45); ABG TCO2 23.9 MMOL/L (23-27)
[2017-01-28] MEDS ORDERED: NALOXONE 0.4 MG/ML VIAL IV PRN (14:36)
[2017-01-28] MEDS: HYDROmorphone PCA 30 MG/30 ML SYRINGE IV SCH (19:47)
[2017-01-29] MEDS: LACTATED RINGERS 1,000 ML IV SCH ×4 (01:16→17:26)
[2017-01-29] MEDS: IPRATROPIUM 500 MCG/2.5 ML NEB RESP TX PRN ×2 (04:45→14:11)
[2017-01-29 06:15] LABS: Basophils % 0.3 % (0.0-0.8); Eosinophils # 0.1 10*3/uL (0.0-0.87); Eosinophils % 0.6 % (0.00-10.9); Hematocrit 28.9 VOL% (35.7-47.0); Hemoglobin 9.8 GM/DL (12.0-16.0); Immature Granulocytes % 1.4 %; Immature Granulocytes Absolute 0.17 #; Lymphocytes # 0.7 10*3/uL (1.4-4.0); Lymphocytes % 5.9 % (21.3-54.2); Mean Corpuscular HGB Conc 33.9 GM/DL (32-36); Mean Corpuscular Hemoglobin 32 PG (27-34); Mean Corpuscular Volume 93.5 FL (87-102); Mean Platelet Volume 10.6 FL (9.6-12.0); Monocytes # 0.9 10*3/uL (0.11-0.8); Monocytes % 7.9 % (1.7-12.7); Neutrophils # 9.9 10*3/uL (1.4-7.4); Neutrophils % 83.9 % (38.7-73.9); Platelet Count 160 T/CUMM (130-400); Red Blood Count 3.09 MC/CUMM (3.8-5.5); Red Cell Distribution Width 14.8 % (9.3-17.3); White Blood Count 11.8 T/CUMM (4-12)
[2017-01-29 06:43] LABS: Calcium 7.6 MG/DL (8.5-10.1); Magnesium 1.9 MG/DL (1.8-2.4); Osmolality,Calculated 275.4 MOS/KG (273-304); Potassium 3.6 MMOL/L (3.5-5.1)
[2017-01-29 06:49] LABS: Phosphorous 2.5 MG/DL (2.5-4.9); Prealbumin 7.3 MG/DL (20-40)
[2017-01-29 06:50] LABS: Band Neutrophils 2 % (0-10); Hypochromasia 1+; Lymphocytes 8 % (20-55); Microcytosis Slight; Segmented Neutrophils 87 % (50-85); Total Cells Counted 100
[2017-01-29 06:51] LABS: Platelet Estimate Adequate
[2017-01-29] MEDS ORDERED: POTASSIUM CHLORIDE RIDER 20 MEQ in PREMIX 1 EACH IV PRN (09:57)
[2017-01-29] MEDS: ASPIRIN EC 81 MG TABLET PO SCH (09:57)
[2017-01-29] MEDS: PANTOPRAZOLE 40 MG VIAL IV SCH (10:01)
[2017-01-29] MEDS: ENOXAPARIN 40 MG/0.4 ML SYRINGE SUBCUT SCH (10:02)
[2017-01-29] MEDS: LEVOFLOXACIN INJ 750 MG in PREMIX 1 EACH IV SCH (13:35)
[2017-01-29] MEDS: HYDROmorphone PCA 30 MG/30 ML SYRINGE IV SCH (18:27)
[2017-01-29] MEDS: POTASSIUM CHLORIDE RIDER 10 MEQ in PREMIX 1 EACH IV PRN ×2 (18:46→20:52)
[2017-01-29] MEDS: CETIRIZINE 10 MG TABLET PO SCH ×2 (20:49)
[2017-01-30 04:52] LABS: Basophils % 0.3 % (0.0-0.8); Eosinophils # 0.1 10*3/uL (0.0-0.87); Eosinophils % 0.7 % (0.00-10.9); Hematocrit 31.8 VOL% (35.7-47.0); Hemoglobin 10.6 GM/DL (12.0-16.0); Immature Granulocytes % 1.6 %; Immature Granulocytes Absolute 0.21 #; Lymphocytes # 0.7 10*3/uL (1.4-4.0); Lymphocytes % 5.4 % (21.3-54.2); Mean Corpuscular HGB Conc 33.3 GM/DL (32-36); Mean Corpuscular Hemoglobin 31 PG (27-34); Mean Corpuscular Volume 93.5 FL (87-102); Mean Platelet Volume 10.4 FL (9.6-12.0); Monocytes # 1.1 10*3/uL (0.11-0.8); Monocytes % 8.3 % (1.7-12.7); Neutrophils # 10.8 10*3/uL (1.4-7.4); Neutrophils % 83.7 % (38.7-73.9); Platelet Count 211 T/CUMM (130-400); Red Cell Distribution Width 14.3 % (9.3-17.3); White Blood Count 12.9 T/CUMM (4-12)
[2017-01-30 05:13] LABS: Calcium 7.7 MG/DL (8.5-10.1); Magnesium 1.9 MG/DL (1.8-2.4); Osmolality,Calculated 273.4 MOS/KG (273-304); Potassium 3.5 MMOL/L (3.5-5.1)
[2017-01-30] MEDS ORDERED: DEXTROSE 50% 25 GM/50 ML VIAL IV ONE (05:42)
[2017-01-30] MEDS: PANTOPRAZOLE 40 MG VIAL IV SCH (08:45)
[2017-01-30] MEDS: ASPIRIN EC 81 MG TABLET PO SCH (08:45)
[2017-01-30] MEDS: ENOXAPARIN 40 MG/0.4 ML SYRINGE SUBCUT SCH (08:45)
[2017-01-30] MEDS ORDERED: FUROSEMIDE 20 MG/2 ML VIAL IV ONE (09:27)
[2017-01-30] MEDS: methylPREDNISolone SOD SUC 40 MG/1 ML VIAL IV SCH ×2 (10:55→21:04)
[2017-01-30] MEDS: DILTIAZEM INJ 100 MG in SODIUM CHLORIDE 0.9% 100 ML IV SCH (10:55)
[2017-01-30] MEDS: LACTATED RINGERS 1,000 ML IV SCH ×2 (10:55→21:04)
[2017-01-30] MEDS: POTASSIUM CHLORIDE RIDER 10 MEQ in PREMIX 1 EACH IV PRN ×3 (10:56→17:35)
[2017-01-30] MEDS ORDERED: ALBUTEROL 2.5 MG/3 ML NEB RESP TX PRN (11:00)
[2017-01-30] MEDS: ONDANSETRON 4 MG/2 ML VIAL IV PRN ×2 (13:24→18:52)
[2017-01-30] MEDS: LEVOFLOXACIN INJ 750 MG in PREMIX 1 EACH IV SCH (13:27)
[2017-01-30] MEDS: ALBUTEROL/IPRATROPIUM 3 ML NEB RESP TX SCH ×2 (13:40→19:03)
[2017-01-30] MEDS: DILTIAZEM 60 MG TABLET PO SCH ×2 (17:34→21:04)
[2017-01-30] MEDS: CETIRIZINE 10 MG TABLET PO SCH (21:06)
[2017-01-31] MEDS: ONDANSETRON 4 MG/2 ML VIAL IV PRN (00:47)
[2017-01-31] MEDS: ALBUTEROL/IPRATROPIUM 3 ML NEB RESP TX SCH ×4 (01:13→21:30)
[2017-01-31 05:05] LABS: Basophils # 0.1 10*3/uL (0.0-0.2); Basophils % 0.3 % (0.0-0.8); Hematocrit 34.4 VOL% (35.7-47.0); Hemoglobin 11.9 GM/DL (12.0-16.0); Immature Granulocytes % 2.2 %; Immature Granulocytes Absolute 0.46 #; Lymphocytes # 0.4 10*3/uL (1.4-4.0); Lymphocytes % 1.8 % (21.3-54.2); Mean Corpuscular HGB Conc 34.6 GM/DL (32-36); Mean Corpuscular Hemoglobin 32 PG (27-34); Mean Corpuscular Volume 91.5 FL (87-102); Mean Platelet Volume 9.7 FL (9.6-12.0); Monocytes # 0.4 10*3/uL (0.11-0.8); Monocytes % 1.9 % (1.7-12.7); Neutrophils # 19.8 10*3/uL (1.4-7.4); Neutrophils % 93.8 % (38.7-73.9); Platelet Count 286 T/CUMM (130-400); Red Blood Count 3.76 MC/CUMM (3.8-5.5); Red Cell Distribution Width 13.8 % (9.3-17.3); White Blood Count 21.1 T/CUMM (4-12)
[2017-01-31 05:38] LABS: Calcium 8.6 MG/DL (8.5-10.1); Potassium 4.1 MMOL/L (3.5-5.1)
[2017-01-31 06:19] LABS: Band Neutrophils 1 % (0-10); Lymphocytes 1 % (20-55); Segmented Neutrophils 95 % (50-85); Total Cells Counted 100
[2017-01-31 06:20] LABS: Hypochromasia 1+; Microcytosis Slight; Platelet Estimate Normal
[2017-01-31] MEDS: LACTATED RINGERS 1,000 ML IV SCH (06:34)
[2017-01-31] MEDS: DILTIAZEM INJ 100 MG in SODIUM CHLORIDE 0.9% 100 ML IV SCH ×2 (10:25→22:12)
[2017-01-31] MEDS ORDERED: DEXTROSE 50% 25 GM/50 ML VIAL IV PRN (14:11)
[2017-01-31] MEDS ORDERED: GLUCAGON 1 MG VIAL IM PRN (14:11)
[2017-01-31] MEDS: HYDROmorphone 2 MG/1 ML VIAL IV PRN ×2 (15:46→22:05)
[2017-01-31] MEDS: HYDROmorphone PCA 30 MG/30 ML SYRINGE IV SCH (16:34)
[2017-01-31] MEDS: methylPREDNISolone SOD SUC 40 MG/1 ML VIAL IV SCH ×2 (16:52→21:07)
[2017-01-31] MEDS: PANTOPRAZOLE 40 MG VIAL IV SCH (16:53)
[2017-01-31] MEDS: LEVOFLOXACIN INJ 750 MG in PREMIX 1 EACH IV SCH (16:53)
[2017-01-31] MEDS: FAT EMULSION 20% 250 ML IV SCH (16:58)
[2017-01-31] MEDS ORDERED: TRACE ELEMENTS (5) 1 ML, MULTIVITAMIN INJ 10 ML in AMINO ACIDS/DEXT/LYTES 5-15% 1,000 ML IV SCH (17:00)
[2017-01-31] MEDS: IPRATROPIUM 500 MCG/2.5 ML NEB RESP TX PRN (17:00)
[2017-01-31] MEDS: ASPIRIN EC 81 MG TABLET PO SCH (17:21)
[2017-01-31] MEDS: ENOXAPARIN 40 MG/0.4 ML SYRINGE SUBCUT SCH (17:21)
[2017-01-31] MEDS: INSULIN REGULAR 100 UNIT/ML SUBCUT SCH (18:12)
[2017-01-31 19:05] LABS: Apearance,Urine Slightly Hazy (Clear); Bacteria,Urine Occasional /HPF (Few); Bilirubin,Urine Negative (Negative); Blood, Urine Moderate mg/dL (Negative); Glucose,Urine (UA) 50 mg/dL (Negative); Ketones,Urine 80 mg/dL (Negative); Mucus,Urine Moderate /LPF (Occasional); Nitrite,Urine Negative (Negative); Protein,Urine 30 MG/DL; RBC,Urine 28 /HPF (0-4); Squamous Epithelial Cell,Urine Moderate /HPF (0-10); Urine Color Yellow (Yellow); Urine Specific Gravity > 1.060 (1.001-1.035); Urine Urobilinogen < 2.0 EU/DL (0.2-1.0); WBC,Urine 7 /HPF (0-6)
[2017-01-31] MEDS: LEVALBUTEROL 0.63 MG/3 ML NEB RESP TX SCH (21:30)
[2017-01-31] MEDS: CETIRIZINE 10 MG TABLET PO SCH (21:53)
[2017-02-01] MEDS: LACTATED RINGERS 1,000 ML IV SCH ×2 (00:13→10:17)
[2017-02-01] MEDS: ALBUTEROL/IPRATROPIUM 3 ML NEB RESP TX SCH ×2 (00:35→13:41)
[2017-02-01] MEDS: INSULIN REGULAR 100 UNIT/ML SUBCUT SCH ×4 (00:35→18:40)
[2017-02-01 05:55] LABS: Basophils # 0.1 10*3/uL (0.0-0.2); Basophils % 0.2 % (0.0-0.8); Hematocrit 29.9 VOL% (35.7-47.0); Hemoglobin 10.3 GM/DL (12.0-16.0); Immature Granulocytes % 3.3 %; Immature Granulocytes Absolute 0.69 #; Lymphocytes # 0.4 10*3/uL (1.4-4.0); Lymphocytes % 1.7 % (21.3-54.2); Mean Corpuscular HGB Conc 34.4 GM/DL (32-36); Mean Corpuscular Hemoglobin 32 PG (27-34); Mean Corpuscular Volume 91.4 FL (87-102); Mean Platelet Volume 10.4 FL (9.6-12.0); Monocytes # 0.8 10*3/uL (0.11-0.8); Monocytes % 3.6 % (1.7-12.7); Neutrophils # 19.2 10*3/uL (1.4-7.4); Neutrophils % 91.2 % (38.7-73.9); Platelet Count 271 T/CUMM (130-400); Red Blood Count 3.27 MC/CUMM (3.8-5.5); Red Cell Distribution Width 13.8 % (9.3-17.3); White Blood Count 21.1 T/CUMM (4-12)
[2017-02-01] MEDS: DILTIAZEM INJ 100 MG in SODIUM CHLORIDE 0.9% 100 ML IV SCH ×2 (06:36→10:17)
[2017-02-01 06:41] LABS: Calcium 8.4 MG/DL (8.5-10.1); Osmolality,Calculated 278.8 MOS/KG (273-304); Potassium 4.1 MMOL/L (3.5-5.1)
[2017-02-01] MEDS: HYDROmorphone 2 MG/1 ML VIAL IV PRN ×3 (07:00→20:53)
[2017-02-01 07:35] LABS: Magnesium 2.1 MG/DL (1.8-2.4); Phosphorous 2.3 MG/DL (2.5-4.9)
[2017-02-01] MEDS: LEVALBUTEROL 0.63 MG/3 ML NEB RESP TX SCH ×4 (07:50→20:01)
[2017-02-01 08:05] LABS: Band Neutrophils 2 % (0-10); Giant Platelets Few; Hypochromasia 1+; Lymphocytes 3 % (20-55); Microcytosis Slight; Platelet Estimate Adequate; Segmented Neutrophils 93 % (50-85); Total Cells Counted 100
[2017-02-01] MEDS: methylPREDNISolone SOD SUC 40 MG/1 ML VIAL IV SCH ×2 (10:07→20:54)
[2017-02-01] MEDS: ENOXAPARIN 40 MG/0.4 ML SYRINGE SUBCUT SCH (10:08)
[2017-02-01] MEDS: PANTOPRAZOLE 40 MG VIAL IV SCH (10:08)
[2017-02-01] MEDS: ASPIRIN EC 81 MG TABLET PO SCH (10:17)
[2017-02-01] MEDS: BUDESONIDE 0.25 MG/2 ML NEB RESP TX SCH ×2 (13:35→20:01)
[2017-02-01] MEDS: ACYCLOVIR 800 MG TABLET PO SCH ×2 (14:54→23:01)
[2017-02-01] MEDS: LEVOFLOXACIN INJ 750 MG in PREMIX 1 EACH IV SCH (14:54)
[2017-02-01] MEDS: PHENOL 1.4% THROAT SPRAY 177 ML BOTTLE PO SCH ×3 (14:54→23:01)
[2017-02-01] MEDS: CETIRIZINE 10 MG TABLET PO SCH ×2 (14:55→23:02)
[2017-02-01] MEDS: FAT EMULSION 20% 250 ML IV SCH (14:55)
[2017-02-01] MEDS: ALUMINUM/MAGNES/SIMETH MAX STR 30 ML UDCUP PO SCH ×2 (14:55→19:04)
[2017-02-01] MEDS: SODIUM CHLORIDE 0.9% 1,000 ML IV SCH (15:19)
[2017-02-01] MEDS: METOCLOPRAMIDE 10 MG/2 ML VIAL IV SCH (16:27)
[2017-02-01] MEDS ORDERED: POTASSIUM CHLORIDE INJ 20 MEQ in DEXTROSE 10% 1,000 ML IV PRN (17:00)
[2017-02-01] MEDS ORDERED: DEXTROSE 10% 1,000 ML IV PRN (17:00)
[2017-02-01] MEDS: TRACE ELEMENTS (5) 1 ML, MULTIVITAMIN INJ 10 ML in AMINO ACIDS/DEXT/LYTES 5-15% 2,000 ML IV SCH (17:24)
[2017-02-01] MEDS: ONDANSETRON 4 MG/2 ML VIAL IV PRN (20:54)
[2017-02-02] MEDS: INSULIN REGULAR 100 UNIT/ML SUBCUT SCH ×4 (01:24→19:25)
[2017-02-02] MEDS: ALUMINUM/MAGNES/SIMETH MAX STR 30 ML UDCUP PO SCH ×4 (02:35→20:28)
[2017-02-02] MEDS: HYDROmorphone 2 MG/1 ML VIAL IV PRN ×2 (04:14→10:19)
[2017-02-02 06:16] LABS: Basophils # 0.1 10*3/uL (0.0-0.2); Basophils % 0.3 % (0.0-0.8); Hematocrit 30.7 VOL% (35.7-47.0); Hemoglobin 10.5 GM/DL (12.0-16.0); Immature Granulocytes % 6.8 %; Immature Granulocytes Absolute 1.57 #; Lymphocytes # 0.5 10*3/uL (1.4-4.0); Lymphocytes % 2.1 % (21.3-54.2); Mean Corpuscular HGB Conc 34.2 GM/DL (32-36); Mean Corpuscular Hemoglobin 31 PG (27-34); Mean Corpuscular Volume 91.4 FL (87-102); Mean Platelet Volume 10.4 FL (9.6-12.0); Monocytes % 4.5 % (1.7-12.7); NRBC # 0.05 10*3/uL; Neutrophils % 86.3 % (38.7-73.9); Platelet Count 299 T/CUMM (130-400); Red Blood Count 3.36 MC/CUMM (3.8-5.5); Red Cell Distribution Width 14.1 % (9.3-17.3); White Blood Count 23.1 T/CUMM (4-12)
[2017-02-02 06:47] LABS: Anisocytosis 1+; Band Neutrophils 4 % (0-10); Lymphocytes 2 % (20-55); Macrocytosis 1+; Metamyelocytes 1 %; Platelet Estimate Normal; Segmented Neutrophils 87 % (50-85); Total Cells Counted 100
[2017-02-02 06:58] LABS: Calcium 8.7 MG/DL (8.5-10.1); Magnesium 2.1 MG/DL (1.8-2.4); Osmolality,Calculated 285.4 MOS/KG (273-304); Potassium 3.6 MMOL/L (3.5-5.1)
[2017-02-02] MEDS: LEVALBUTEROL 0.63 MG/3 ML NEB RESP TX SCH ×4 (07:49→20:30)
[2017-02-02] MEDS: BUDESONIDE 0.25 MG/2 ML NEB RESP TX SCH ×2 (07:49→20:30)
[2017-02-02] MEDS: DILTIAZEM INJ 100 MG in SODIUM CHLORIDE 0.9% 100 ML IV SCH ×2 (10:00→20:37)
[2017-02-02] MEDS: PHENOL 1.4% THROAT SPRAY 177 ML BOTTLE PO SCH ×4 (10:17→22:13)
[2017-02-02] MEDS: METOCLOPRAMIDE 10 MG/2 ML VIAL IV SCH ×3 (10:17→17:25)
[2017-02-02] MEDS: ENOXAPARIN 40 MG/0.4 ML SYRINGE SUBCUT SCH (10:18)
[2017-02-02] MEDS: methylPREDNISolone SOD SUC 40 MG/1 ML VIAL IV SCH ×2 (10:18→22:13)
[2017-02-02] MEDS: PANTOPRAZOLE 40 MG VIAL IV SCH (10:18)
[2017-02-02] MEDS: ACYCLOVIR 800 MG TABLET PO SCH ×3 (10:19→22:13)
[2017-02-02] MEDS: ASPIRIN EC 81 MG TABLET PO SCH (10:19)
[2017-02-02] MEDS: Glycopyrrolate/Formoterol Fum [Bevespi Aerosphere Inhaler] INH SCH ×2 (10:28→22:12)
[2017-02-02] MEDS: Fluticasone/Vilanterol [Breo Ellipta 100-25 Mcg Inh] INH SCH (10:28)
[2017-02-02] MEDS: SODIUM CHLORIDE 0.9% 1,000 ML IV SCH (10:36)
[2017-02-02] MEDS: LEVOFLOXACIN INJ 750 MG in PREMIX 1 EACH IV SCH (13:22)
[2017-02-02] MEDS: FAT EMULSION 20% 250 ML IV SCH (15:13)
[2017-02-02] MEDS: TRACE ELEMENTS (5) 1 ML, MULTIVITAMIN INJ 10 ML in AMINO ACIDS/DEXT/LYTES 5-15% 2,000 ML IV SCH (17:25)
[2017-02-02] MEDS ORDERED: DIGOXIN 0.5 MG/2 ML AMP IV ONE ×2 (17:49→18:39)
[2017-02-02] MEDS ORDERED: AMIODARONE INJ 150 MG in DEXTROSE 5% 100 ML IV ONE (19:14)
[2017-02-02] MEDS ORDERED: AMIODARONE 200 MG TABLET PO ONE (20:00)
[2017-02-02] MEDS: CETIRIZINE 10 MG TABLET PO SCH (22:13)
[2017-02-03] MEDS: INSULIN REGULAR 100 UNIT/ML SUBCUT SCH ×4 (00:01→18:24)
[2017-02-03] MEDS: HYDROmorphone 2 MG/1 ML VIAL IV PRN ×2 (00:32→05:06)
[2017-02-03] MEDS: ALUMINUM/MAGNES/SIMETH MAX STR 30 ML UDCUP PO SCH ×4 (01:09→19:13)
[2017-02-03] MEDS: SODIUM CHLORIDE 0.9% 1,000 ML IV SCH (03:06)
[2017-02-03] MEDS: DILTIAZEM INJ 100 MG in SODIUM CHLORIDE 0.9% 100 ML IV SCH ×3 (03:06→16:30)
[2017-02-03 05:48] LABS: Basophils # 0.1 10*3/uL (0.0-0.2); Basophils % 0.5 % (0.0-0.8); Hematocrit 33.5 VOL% (35.7-47.0); Hemoglobin 11.6 GM/DL (12.0-16.0); Immature Granulocytes % 6.5 %; Immature Granulocytes Absolute 1.75 #; Lymphocytes # 0.6 10*3/uL (1.4-4.0); Lymphocytes % 2.2 % (21.3-54.2); Mean Corpuscular HGB Conc 34.6 GM/DL (32-36); Mean Corpuscular Hemoglobin 32 PG (27-34); Mean Corpuscular Volume 91.3 FL (87-102); Mean Platelet Volume 10.1 FL (9.6-12.0); Monocytes # 1.3 10*3/uL (0.11-0.8); Monocytes % 4.8 % (1.7-12.7); NRBC # 0.21 10*3/uL; Neutrophils # 23.1 10*3/uL (1.4-7.4); Platelet Count 311 T/CUMM (130-400); Red Blood Count 3.67 MC/CUMM (3.8-5.5); White Blood Count 26.8 T/CUMM (4-12)
[2017-02-03 06:13] LABS: Calcium 8.9 MG/DL (8.5-10.1); Magnesium 2.5 MG/DL (1.8-2.4); Osmolality,Calculated 289.4 MOS/KG (273-304); Potassium 3.5 MMOL/L (3.5-5.1)
[2017-02-03 06:18] LABS: Band Neutrophils 5 % (0-10); Hypochromasia 1+; Lymphocytes 2 % (20-55); Metamyelocytes 1 %; Nucleated Red Blood Cells 2 (0-5); Promyelocytes 1 %; Segmented Neutrophils 86 % (50-85); Total Cells Counted 100
[2017-02-03 06:19] LABS: Microcytosis Slight; Platelet Estimate Normal
[2017-02-03 06:27] LABS: Calcium 8.8 MG/DL (8.5-10.1); Osmolality,Calculated 287.4 MOS/KG (273-304); Potassium 3.5 MMOL/L (3.5-5.1); Prealbumin 21.9 MG/DL (20-40)
[2017-02-03] MEDS: LEVALBUTEROL 0.63 MG/3 ML NEB RESP TX SCH ×4 (07:51→19:07)
[2017-02-03] MEDS: BUDESONIDE 0.25 MG/2 ML NEB RESP TX SCH ×2 (07:51→19:07)
[2017-02-03] MEDS: POTASSIUM CHLORIDE RIDER 10 MEQ in PREMIX 1 EACH IV PRN ×3 (09:54→14:44)
[2017-02-03] MEDS: AMIODARONE 200 MG TABLET PO SCH ×2 (09:55→21:38)
[2017-02-03] MEDS: ASPIRIN EC 81 MG TABLET PO SCH (09:55)
[2017-02-03] MEDS: ACYCLOVIR 800 MG TABLET PO SCH ×3 (09:55→22:00)
[2017-02-03] MEDS: PANTOPRAZOLE 40 MG VIAL IV SCH (09:56)
[2017-02-03] MEDS: METOCLOPRAMIDE 10 MG/2 ML VIAL IV SCH ×3 (09:56→16:33)
[2017-02-03] MEDS: methylPREDNISolone SOD SUC 40 MG/1 ML VIAL IV SCH ×2 (09:56→21:38)
[2017-02-03] MEDS: ENOXAPARIN 40 MG/0.4 ML SYRINGE SUBCUT SCH (10:05)
[2017-02-03] MEDS: PHENOL 1.4% THROAT SPRAY 177 ML BOTTLE PO SCH ×4 (10:06→21:49)
[2017-02-03] MEDS: Glycopyrrolate/Formoterol Fum [Bevespi Aerosphere Inhaler] INH SCH ×2 (10:44→21:49)
[2017-02-03] MEDS: Fluticasone/Vilanterol [Breo Ellipta 100-25 Mcg Inh] INH SCH (10:44)
[2017-02-03] MEDS: LEVOFLOXACIN INJ 750 MG in PREMIX 1 EACH IV SCH (12:30)
[2017-02-03] MEDS ORDERED: DIGOXIN 0.5 MG/2 ML AMP IV ONE (15:33)
[2017-02-03] MEDS ORDERED: DILTIAZEM 50 MG/10 ML VIAL IV ONE ×2 (17:46→17:54)
[2017-02-03] MEDS ORDERED: AMIODARONE INJ 150 MG in DEXTROSE 5% 100 ML IV ONE (17:59)
[2017-02-03] MEDS ORDERED: AMIODARONE INJ 450 MG in DEXTROSE 5% 241 ML IV SCH (18:00)
[2017-02-03] MEDS: TIOTROPIUM BROMIDE 1.25 MCG PO SCH (19:13)
[2017-02-03] MEDS: CETIRIZINE 10 MG TABLET PO SCH (21:38)
[2017-02-03] MEDS: ENOXAPARIN 80 MG/0.8 ML SYRINGE SUBCUT SCH (21:38)
[2017-02-03] MEDS: MORPHINE 2 MG/1 ML SYRINGE IV PRN (21:39)
[2017-02-04] MEDS: AMIODARONE INJ 450 MG in DEXTROSE 5% 241 ML IV SCH ×3 (01:00→16:35)
[2017-02-04] MEDS: INSULIN REGULAR 100 UNIT/ML SUBCUT SCH ×4 (01:45→18:04)
[2017-02-04] MEDS: ALUMINUM/MAGNES/SIMETH MAX STR 30 ML UDCUP PO SCH ×4 (02:45→18:51)
[2017-02-04] MEDS ORDERED: hydrALAZINE 20 MG/1 ML VIAL IM PRN (03:39)
[2017-02-04] MEDS: SODIUM CHLORIDE 0.9% 1,000 ML IV SCH (04:42)
[2017-02-04 05:46] LABS: Basophils # 0.1 10*3/uL (0.0-0.2); Basophils % 0.3 % (0.0-0.8); Hematocrit 30.2 VOL% (35.7-47.0); Hemoglobin 10.4 GM/DL (12.0-16.0); Immature Granulocytes % 3.9 %; Immature Granulocytes Absolute 0.94 #; Lymphocytes # 0.5 10*3/uL (1.4-4.0); Lymphocytes % 2.1 % (21.3-54.2); Mean Corpuscular HGB Conc 34.4 GM/DL (32-36); Mean Corpuscular Hemoglobin 31 PG (27-34); Mean Corpuscular Volume 90.4 FL (87-102); Mean Platelet Volume 10.3 FL (9.6-12.0); Monocytes # 0.7 10*3/uL (0.11-0.8); Monocytes % 2.9 % (1.7-12.7); NRBC # 0.16 10*3/uL; Neutrophils # 22.2 10*3/uL (1.4-7.4); Neutrophils % 90.8 % (38.7-73.9); Platelet Count 285 T/CUMM (130-400); Red Blood Count 3.34 MC/CUMM (3.8-5.5); Red Cell Distribution Width 14.6 % (9.3-17.3); White Blood Count 24.4 T/CUMM (4-12)
[2017-02-04 06:07] LABS: Hypochromasia 1+; Lymphocytes 2 % (20-55); Nucleated Red Blood Cells 1 (0-5); Platelet Estimate Adequate; Segmented Neutrophils 96 % (50-85); Total Cells Counted 100
[2017-02-04 06:08] LABS: Giant Platelets Few; Microcytosis Slight
[2017-02-04 06:21] LABS: Calcium 8.6 MG/DL (8.5-10.1); Magnesium 2.4 MG/DL (1.8-2.4); Potassium 4.4 MMOL/L (3.5-5.1)
[2017-02-04 06:46] LABS: Free T4 (Free Thyroxine) 1.3 NG/DL (0.76-1.46); Thyroid Stimulating Hormone 1.55 uIU/ml (0.358-3.74)
[2017-02-04] MEDS: LEVALBUTEROL 0.63 MG/3 ML NEB RESP TX SCH ×4 (07:00→19:14)
[2017-02-04] MEDS: BUDESONIDE 0.25 MG/2 ML NEB RESP TX SCH ×2 (07:00→19:14)
[2017-02-04] MEDS: METOCLOPRAMIDE 10 MG/2 ML VIAL IV SCH ×3 (09:16→16:47)
[2017-02-04] MEDS: PHENOL 1.4% THROAT SPRAY 177 ML BOTTLE PO SCH ×4 (09:16→20:21)
[2017-02-04] MEDS: ASPIRIN EC 81 MG TABLET PO SCH (09:16)
[2017-02-04] MEDS: ACYCLOVIR 800 MG TABLET PO SCH ×3 (09:16→20:13)
[2017-02-04] MEDS: Fluticasone/Vilanterol [Breo Ellipta 100-25 Mcg Inh] INH SCH (09:16)
[2017-02-04] MEDS: AMIODARONE 200 MG TABLET PO SCH ×3 (09:16→20:12)
[2017-02-04] MEDS: Glycopyrrolate/Formoterol Fum [Bevespi Aerosphere Inhaler] INH SCH ×2 (09:16→20:21)
[2017-02-04] MEDS: ENOXAPARIN 80 MG/0.8 ML SYRINGE SUBCUT SCH ×2 (09:16→20:12)
[2017-02-04] MEDS: methylPREDNISolone SOD SUC 40 MG/1 ML VIAL IV SCH ×2 (09:18→20:13)
[2017-02-04] MEDS: PANTOPRAZOLE 40 MG VIAL IV SCH (09:21)
[2017-02-04] MEDS: TIOTROPIUM BROMIDE 1.25 MCG PO SCH (09:28)
[2017-02-04] MEDS: NYSTATIN 500,000 UNIT/5 ML UDCUP SWISH/SWAL SCH ×4 (11:37→20:12)
[2017-02-04] MEDS: LEVOFLOXACIN INJ 750 MG in PREMIX 1 EACH IV SCH (12:12)
[2017-02-04] MEDS: DILTIAZEM 30 MG TABLET PO SCH (16:47)
[2017-02-04] MEDS: MORPHINE 2 MG/1 ML SYRINGE IV PRN (20:12)
[2017-02-04] MEDS: CETIRIZINE 10 MG TABLET PO SCH (20:13)
[2017-02-05] MEDS: ALUMINUM/MAGNES/SIMETH MAX STR 30 ML UDCUP PO SCH ×4 (00:10→19:25)
[2017-02-05] MEDS: INSULIN REGULAR 100 UNIT/ML SUBCUT SCH ×4 (00:10→18:40)
[2017-02-05] MEDS: DILTIAZEM 30 MG TABLET PO SCH ×3 (00:10→14:28)
[2017-02-05] MEDS: MORPHINE 2 MG/1 ML SYRINGE IV PRN ×2 (00:24→13:34)
[2017-02-05] MEDS: TIOTROPIUM BROMIDE 1.25 MCG PO SCH ×4 (03:24→23:14)
[2017-02-05] MEDS: ONDANSETRON 4 MG/2 ML VIAL IV PRN ×2 (04:31→13:41)
[2017-02-05 04:56] LABS: Basophils % 0.1 % (0.0-0.8); Hematocrit 29.1 VOL% (35.7-47.0); Hemoglobin 10.1 GM/DL (12.0-16.0); Immature Granulocytes % 3.7 %; Immature Granulocytes Absolute 1.44 #; Lymphocytes # 0.7 10*3/uL (1.4-4.0); Lymphocytes % 1.7 % (21.3-54.2); Mean Corpuscular HGB Conc 34.7 GM/DL (32-36); Mean Corpuscular Hemoglobin 32 PG (27-34); Mean Corpuscular Volume 90.7 FL (87-102); Mean Platelet Volume 10.7 FL (9.6-12.0); Monocytes # 1.5 10*3/uL (0.11-0.8); Monocytes % 3.7 % (1.7-12.7); NRBC # 0.26 10*3/uL; Neutrophils # 35.7 10*3/uL (1.4-7.4); Neutrophils % 90.8 % (38.7-73.9); Platelet Count 330 T/CUMM (130-400); Red Blood Count 3.21 MC/CUMM (3.8-5.5); Red Cell Distribution Width 14.9 % (9.3-17.3); White Blood Count 39.3 T/CUMM (4-12)
[2017-02-05 05:38] LABS: Hypochromasia 1+; Lymphocytes 2 % (20-55); Microcytosis 1+; Myelocytes 1 %; Nucleated Red Blood Cells 2 (0-5); Segmented Neutrophils 91 % (50-85); Total Cells Counted 100
[2017-02-05 05:39] LABS: Platelet Estimate Normal
[2017-02-05] MEDS: BUDESONIDE 0.25 MG/2 ML NEB RESP TX SCH ×2 (07:45→18:46)
[2017-02-05] MEDS: LEVALBUTEROL 0.63 MG/3 ML NEB RESP TX SCH ×4 (07:45→18:46)
[2017-02-05] MEDS: PHENOL 1.4% THROAT SPRAY 177 ML BOTTLE PO SCH ×4 (08:10→23:13)
[2017-02-05] MEDS: METOCLOPRAMIDE 10 MG/2 ML VIAL IV SCH ×3 (09:04→18:00)
[2017-02-05] MEDS: SODIUM CHLORIDE 0.9% 1,000 ML IV SCH ×3 (11:03→23:18)
[2017-02-05 13:21] LABS: Calcium 8.4 MG/DL (8.5-10.1); Magnesium 2.7 MG/DL (1.8-2.4); Osmolality,Calculated 280.8 MOS/KG (273-304)
[2017-02-05 13:23] LABS: Albumin 2.8 G/DL (3.4-5.0); Bilirubin,Direct 0.2 MG/DL (0.0-0.20); Bilirubin,Indirect 0.4 MG/DL (0.0-1.0); Bilirubin,Total 0.6 MG/DL (0.2-1.0); Total Protein 5.3 G/DL (6.4-8.3)
[2017-02-05] MEDS: AMIODARONE INJ 450 MG in DEXTROSE 5% 241 ML IV SCH (13:41)
[2017-02-05] MEDS: DILTIAZEM INJ 100 MG in SODIUM CHLORIDE 0.9% 100 ML IV SCH (13:42)
[2017-02-05] MEDS: PANTOPRAZOLE 40 MG VIAL IV SCH (13:46)
[2017-02-05] MEDS: methylPREDNISolone SOD SUC 40 MG/1 ML VIAL IV SCH ×2 (13:47→23:13)
[2017-02-05] MEDS: ASPIRIN EC 81 MG TABLET PO SCH (13:57)
[2017-02-05] MEDS: ENOXAPARIN 80 MG/0.8 ML SYRINGE SUBCUT SCH (13:58)
[2017-02-05] MEDS: NYSTATIN 500,000 UNIT/5 ML UDCUP SWISH/SWAL SCH ×3 (13:59→23:44)
[2017-02-05] MEDS: ACYCLOVIR 800 MG TABLET PO SCH ×3 (13:59→23:45)
[2017-02-05] MEDS: AMIODARONE 200 MG TABLET PO SCH (14:27)
[2017-02-05 16:02] LABS: Apearance,Urine CLEAR (Clear); Bilirubin,Urine Negative (Negative); Blood, Urine Large mg/dL (Negative); Glucose,Urine (UA) Negative (Negative); Hyaline Casts,Urine 9 /LPF (0-3); Ketones,Urine Negative (Negative); Mucus,Urine Many /LPF (Occasional); Nitrite,Urine Negative (Negative); Protein,Urine Negative; RBC,Urine 154 /HPF (0-4); Squamous Epithelial Cell,Urine Occasional /HPF (0-10); Urine Color Yellow (Yellow); Urine Specific Gravity 1.041 (1.001-1.035); Urine Urobilinogen < 2.0 EU/DL (0.2-1.0); WBC,Urine 7 /HPF (0-6)
[2017-02-05] MEDS: Glycopyrrolate/Formoterol Fum [Bevespi Aerosphere Inhaler] INH SCH ×2 (17:25→23:13)
[2017-02-05] MEDS: Fluticasone/Vilanterol [Breo Ellipta 100-25 Mcg Inh] INH SCH (17:25)
[2017-02-05] MEDS: LEVOFLOXACIN INJ 750 MG in PREMIX 1 EACH IV SCH (18:00)
[2017-02-05 18:25] LABS: Hemoglobin 7.8 GM/DL (12.0-16.0)
[2017-02-05] MEDS ORDERED: SODIUM CHLORIDE 0.9% 1,000 ML IV PRN (18:49)
[2017-02-05] MEDS ORDERED: HEPARIN/NACL 0.9% 2 UNITS/ML 500 ML IV ONE (20:05)
[2017-02-05] MEDS ORDERED: PROPOFOL 1,000 MG/100 ML BOTTLE IV ONE (21:59)
[2017-02-05] MEDS: HYDROmorphone 2 MG/1 ML VIAL IV PRN ×4 (22:15→22:30)
[2017-02-05] MEDS ORDERED: ONDANSETRON 4 MG/2 ML VIAL IV PRN (22:15)
[2017-02-05] MEDS ORDERED: HYDROmorphone 2 MG/1 ML VIAL ONE (22:15)
[2017-02-05] MEDS ORDERED: SEVOFLURANE 1 UNIT/15 MINUTE INH ONE (22:25)
[2017-02-05] MEDS ORDERED: PHENYLEPHRINE DRIP 20 MG/250 ML PREMIX IV ONE (22:25)
[2017-02-05] MEDS ORDERED: PROPOFOL 200 MG/20 ML VIAL IV ONE (22:25)
[2017-02-05] MEDS ORDERED: SODIUM CHLORIDE 0.9% 1,000 ML IV ONE (22:26)
[2017-02-05] MEDS ORDERED: fentaNYL 100 MCG/2 ML VIAL ONE (22:26)
[2017-02-05] MEDS ORDERED: SUCCINYLCHOLINE 200 MG/10 ML VIAL ONE (22:26)
[2017-02-05] MEDS ORDERED: ROCURONIUM 100 MG/10 ML VIAL IV ONE (22:26)
[2017-02-05] MEDS ORDERED: MIDAZOLAM 2 MG/2 ML VIAL ONE (22:26)
[2017-02-05 22:31] LABS: ABG Base Excess 3.8 MMOL/L (-2.5-2.5); ABG HCO3 27.8 MMOL/L (20-26); ABG PCO2 34.4 MM HG (35-48); ABG PH 7.499 (7.35-7.45); ABG TCO2 23.9 MMOL/L (23-27)
[2017-02-05 22:36] LABS: Apearance,Urine CLEAR (Clear); Bilirubin,Urine Negative (Negative); Blood, Urine Moderate mg/dL (Negative); Glucose,Urine (UA) Negative (Negative); Ketones,Urine Negative (Negative); Mucus,Urine Occasional /LPF (Occasional); Nitrite,Urine Negative (Negative); Protein,Urine Negative; RBC,Urine 32 /HPF (0-4); Squamous Epithelial Cell,Urine Occasional /HPF (0-10); Urine Color Yellow (Yellow); Urine Specific Gravity > 1.060 (1.001-1.035); Urine Urobilinogen < 2.0 EU/DL (0.2-1.0); WBC,Urine 2 /HPF (0-6)
[2017-02-05] MEDS: PROPOFOL 1,000 MG/100 ML BOTTLE IV SCH (23:00)
[2017-02-05] MEDS: CETIRIZINE 10 MG TABLET PO SCH (23:15)
[2017-02-05 23:31] LABS: Hematocrit 29.3 VOL% (35.7-47.0); Hemoglobin 10.4 GM/DL (12.0-16.0)
[2017-02-06] MEDS ORDERED: ALBUMIN 5% 12.5 GM in PREMIX 1 EACH IV ONE (00:06)
[2017-02-06] MEDS ORDERED: ALBUMIN 5% 12.5 GM/250 ML VIAL IV ONE (00:08)
[2017-02-06 00:18] LABS: Calcium 7.5 MG/DL (8.5-10.1); Magnesium 2.2 MG/DL (1.8-2.4); Osmolality,Calculated 285.5 MOS/KG (273-304); Potassium 3.7 MMOL/L (3.5-5.1)
[2017-02-06] MEDS: ALUMINUM/MAGNES/SIMETH MAX STR 30 ML UDCUP PO SCH ×4 (00:22→18:12)
[2017-02-06] MEDS ORDERED: HEPARIN/NACL 0.9% 2 UNITS/ML 500 ML IV ONE (00:36)
[2017-02-06] MEDS: INSULIN REGULAR 100 UNIT/ML SUBCUT SCH ×5 (00:50→17:36)
[2017-02-06] MEDS ORDERED: LACTATED RINGERS 500 ML IV ONE (01:43)
[2017-02-06] MEDS: MORPHINE 2 MG/1 ML SYRINGE IV PRN ×2 (02:54→22:14)
[2017-02-06 03:59] LABS: ABG Oxygen Saturation 98.4 % (95-100); ABG PCO2 39.6 MM HG (35-48); ABG PH 7.467 (7.35-7.45); ABG TCO2 29.2 MMOL/L (23-27)
[2017-02-06 04:18] LABS: Basophils % 0.2 % (0.0-0.8); Hematocrit 25.9 VOL% (35.7-47.0); Hemoglobin 9.1 GM/DL (12.0-16.0); Immature Granulocytes % 2.2 %; Immature Granulocytes Absolute 0.47 #; Lymphocytes # 0.3 10*3/uL (1.4-4.0); Lymphocytes % 1.3 % (21.3-54.2); Mean Corpuscular HGB Conc 35.1 GM/DL (32-36); Mean Corpuscular Hemoglobin 31 PG (27-34); Mean Corpuscular Volume 87.5 FL (87-102); Mean Platelet Volume 10.2 FL (9.6-12.0); Monocytes # 0.8 10*3/uL (0.11-0.8); Monocytes % 3.8 % (1.7-12.7); NRBC # 0.05 10*3/uL; Neutrophils % 92.5 % (38.7-73.9); Platelet Count 147 T/CUMM (130-400); Red Blood Count 2.96 MC/CUMM (3.8-5.5); Red Cell Distribution Width 15.2 % (9.3-17.3); White Blood Count 21.6 T/CUMM (4-12)
[2017-02-06] MEDS: AMIODARONE INJ 450 MG in DEXTROSE 5% 241 ML IV SCH ×2 (04:42→20:29)
[2017-02-06 04:47] LABS: Calcium 7.6 MG/DL (8.5-10.1); Magnesium 2.1 MG/DL (1.8-2.4); Osmolality,Calculated 287.3 MOS/KG (273-304)
[2017-02-06 04:50] LABS: Band Neutrophils 1 % (0-10); Giant Platelets Few; Hypochromasia 1+; Lymphocytes 4 % (20-55); Microcytosis 1+; Ovalocytes Slight; Platelet Estimate Normal; Segmented Neutrophils 91 % (50-85); Total Cells Counted 100
[2017-02-06] MEDS: PROPOFOL 1,000 MG/100 ML BOTTLE IV SCH ×3 (05:13→19:46)
[2017-02-06] MEDS: LEVALBUTEROL 0.63 MG/3 ML NEB RESP TX SCH ×4 (07:57→20:46)
[2017-02-06] MEDS: BUDESONIDE 0.25 MG/2 ML NEB RESP TX SCH ×2 (07:57→20:46)
[2017-02-06] MEDS ORDERED: ENOXAPARIN 40 MG/0.4 ML SYRINGE SUBCUT SCH (08:30)
[2017-02-06] MEDS: METOCLOPRAMIDE 10 MG/2 ML VIAL IV SCH ×3 (08:36→15:37)
[2017-02-06 09:10] LABS: Hematocrit 26.8 VOL% (35.7-47.0); Hemoglobin 9.4 GM/DL (12.0-16.0)
[2017-02-06] MEDS: PIPERACILLIN/TAZOBACTAM 3,375 MG in SODIUM CHLORIDE 0.9% 100 ML IV SCH ×2 (09:12→15:38)
[2017-02-06 09:49] LABS: ABG Base Excess 3.3 MMOL/L (-2.5-2.5); ABG HCO3 27.4 MMOL/L (20-26); ABG Oxygen Saturation 99.6 % (95-100); ABG PCO2 41.2 MM HG (35-48); ABG PH 7.437 (7.35-7.45); ABG TCO2 25.2 MMOL/L (23-27); Pt O2 Delivery Device Ventilator
[2017-02-06] MEDS: ASPIRIN EC 81 MG TABLET PO SCH ×2 (09:52→11:15)
[2017-02-06] MEDS: PHENOL 1.4% THROAT SPRAY 177 ML BOTTLE PO SCH ×4 (09:52→20:18)
[2017-02-06] MEDS: NYSTATIN 500,000 UNIT/5 ML UDCUP SWISH/SWAL SCH ×4 (10:11→20:28)
[2017-02-06] MEDS: methylPREDNISolone SOD SUC 40 MG/1 ML VIAL IV SCH ×2 (10:12→20:28)
[2017-02-06] MEDS: PANTOPRAZOLE 40 MG VIAL IV SCH (10:21)
[2017-02-06] MEDS: ACYCLOVIR 800 MG TABLET PO SCH ×3 (11:14→20:28)
[2017-02-06] MEDS: TIOTROPIUM BROMIDE 1.25 MCG PO SCH ×2 (11:41→22:15)
[2017-02-06] MEDS: Glycopyrrolate/Formoterol Fum [Bevespi Aerosphere Inhaler] INH SCH ×2 (11:41→20:18)
[2017-02-06] MEDS: Fluticasone/Vilanterol [Breo Ellipta 100-25 Mcg Inh] INH SCH (11:41)
[2017-02-06] MEDS: DILTIAZEM INJ 100 MG in SODIUM CHLORIDE 0.9% 100 ML IV SCH (12:32)
[2017-02-06] MEDS: SODIUM CHLORIDE 0.9% 1,000 ML IV SCH (13:50)
[2017-02-06 18:27] LABS: Hematocrit 23.8 VOL% (35.7-47.0); Hemoglobin 8.5 GM/DL (12.0-16.0)
[2017-02-06] MEDS: CETIRIZINE 10 MG TABLET PO SCH (20:28)
[2017-02-07] MEDS: INSULIN REGULAR 100 UNIT/ML SUBCUT SCH ×4 (00:08→19:08)
[2017-02-07] MEDS: ALUMINUM/MAGNES/SIMETH MAX STR 30 ML UDCUP PO SCH ×4 (00:18→19:10)
[2017-02-07] MEDS: PIPERACILLIN/TAZOBACTAM 3,375 MG in SODIUM CHLORIDE 0.9% 100 ML IV SCH ×3 (00:18→16:13)
[2017-02-07] MEDS: PROPOFOL 1,000 MG/100 ML BOTTLE IV SCH ×2 (00:22→06:25)
[2017-02-07 03:09] LABS: ABG Base Excess 2.8 MMOL/L (-2.5-2.5); ABG HCO3 26.9 MMOL/L (20-26); ABG Oxygen Saturation 99.7 % (95-100); ABG PCO2 38.2 MM HG (35-48); ABG PH 7.454 (7.35-7.45); ABG TCO2 24.9 MMOL/L (23-27)
[2017-02-07 03:20] LABS: Basophils % 0.1 % (0.0-0.8); Hematocrit 23.8 VOL% (35.7-47.0); Hemoglobin 8.1 GM/DL (12.0-16.0); Immature Granulocytes % 3.8 %; Immature Granulocytes Absolute 0.72 #; Lymphocytes # 0.3 10*3/uL (1.4-4.0); Lymphocytes % 1.4 % (21.3-54.2); Mean Corpuscular Hemoglobin 30 PG (27-34); Mean Corpuscular Volume 88.5 FL (87-102); Mean Platelet Volume 10.1 FL (9.6-12.0); Monocytes # 0.7 10*3/uL (0.11-0.8); Monocytes % 3.5 % (1.7-12.7); NRBC # 0.06 10*3/uL; Neutrophils # 17.5 10*3/uL (1.4-7.4); Neutrophils % 91.2 % (38.7-73.9); Platelet Count 149 T/CUMM (130-400); Red Blood Count 2.69 MC/CUMM (3.8-5.5); Red Cell Distribution Width 15.6 % (9.3-17.3); White Blood Count 19.2 T/CUMM (4-12)
[2017-02-07 03:36] LABS: Calcium 7.5 MG/DL (8.5-10.1); Magnesium 2.3 MG/DL (1.8-2.4); Osmolality,Calculated 286.1 MOS/KG (273-304)
[2017-02-07 04:05] LABS: Band Neutrophils 1 % (0-10); Lymphocytes 2 % (20-55); Myelocytes 1 %; Nucleated Red Blood Cells 1 (0-5); Promyelocytes 1 %; Segmented Neutrophils 93 % (50-85); Total Cells Counted 100
[2017-02-07 04:06] LABS: Platelet Estimate Normal; Polychromasia Slight
[2017-02-07] MEDS: METOCLOPRAMIDE 10 MG/2 ML VIAL IV SCH ×3 (06:30→16:57)
[2017-02-07] MEDS: LEVALBUTEROL 0.63 MG/3 ML NEB RESP TX SCH ×4 (08:23→19:45)
[2017-02-07] MEDS: BUDESONIDE 0.25 MG/2 ML NEB RESP TX SCH ×2 (08:23→19:45)
[2017-02-07] MEDS: SODIUM CHLORIDE 0.9% 1,000 ML IV SCH (08:54)
[2017-02-07 09:26] LABS: ABG Base Excess 2.3 MMOL/L (-2.5-2.5); ABG HCO3 26.5 MMOL/L (20-26); ABG Oxygen Saturation 98.2 % (95-100); ABG PCO2 39.5 MM HG (35-48); ABG PH 7.445 (7.35-7.45); ABG TCO2 27.7 MMOL/L (23-27)
[2017-02-07] MEDS: ASPIRIN EC 81 MG TABLET PO SCH (10:52)
[2017-02-07] MEDS: MORPHINE 2 MG/1 ML SYRINGE IV PRN ×2 (10:53→21:28)
[2017-02-07 11:09] LABS: Hematocrit 26.7 VOL% (35.7-47.0); Hemoglobin 9.5 GM/DL (12.0-16.0)
[2017-02-07 11:11] LABS: ABG Base Excess 3.1 MMOL/L (-2.5-2.5); ABG HCO3 27.2 MMOL/L (20-26); ABG Oxygen Saturation 99.3 % (95-100); ABG PCO2 46.5 MM HG (35-48); ABG PH 7.395 (7.35-7.45); ABG TCO2 26.1 MMOL/L (23-27)
[2017-02-07] MEDS: PHENOL 1.4% THROAT SPRAY 177 ML BOTTLE PO SCH ×4 (11:12→23:18)
[2017-02-07] MEDS: Glycopyrrolate/Formoterol Fum [Bevespi Aerosphere Inhaler] INH SCH (11:12)
[2017-02-07] MEDS: Fluticasone/Vilanterol [Breo Ellipta 100-25 Mcg Inh] INH SCH (11:12)
[2017-02-07] MEDS: NYSTATIN 500,000 UNIT/5 ML UDCUP SWISH/SWAL SCH ×4 (11:12→21:28)
[2017-02-07] MEDS: TIOTROPIUM BROMIDE 1.25 MCG PO SCH (11:13)
[2017-02-07] MEDS: PANTOPRAZOLE 40 MG VIAL IV SCH (11:16)
[2017-02-07] MEDS: methylPREDNISolone SOD SUC 40 MG/1 ML VIAL IV SCH ×2 (11:21→21:27)
[2017-02-07] MEDS: ACYCLOVIR 800 MG TABLET PO SCH ×3 (11:36→21:26)
[2017-02-07] MEDS: AMIODARONE INJ 450 MG in DEXTROSE 5% 241 ML IV SCH (12:31)
[2017-02-07] MEDS: DILTIAZEM INJ 100 MG in SODIUM CHLORIDE 0.9% 100 ML IV SCH (12:52)
[2017-02-07] MEDS: FAT EMULSION 20% 250 ML IV SCH (16:14)
[2017-02-07] MEDS ORDERED: TRACE ELEMENTS (5) 1 ML, MULTIVITAMIN INJ 10 ML in AMINO ACIDS/DEXT/LYTES 5-15% 1,000 ML IV SCH (17:00)
[2017-02-07] MEDS ORDERED: DEXTROSE 10% 1,000 ML IV PRN (17:00)
[2017-02-07 17:06] LABS: Hematocrit 25.7 VOL% (35.7-47.0); Hemoglobin 9.1 GM/DL (12.0-16.0)
[2017-02-07] MEDS: hydrALAZINE 20 MG/1 ML VIAL IV PRN (19:35)
[2017-02-07] MEDS: CETIRIZINE 10 MG TABLET PO SCH (21:27)
[2017-02-08] MEDS: Glycopyrrolate/Formoterol Fum [Bevespi Aerosphere Inhaler] INH SCH ×3 (00:43→21:31)
[2017-02-08] MEDS: TIOTROPIUM BROMIDE 1.25 MCG PO SCH ×3 (00:43→21:32)
[2017-02-08] MEDS: AMIODARONE INJ 450 MG in DEXTROSE 5% 241 ML IV SCH ×2 (00:44→05:55)
[2017-02-08] MEDS: INSULIN REGULAR 100 UNIT/ML SUBCUT SCH ×3 (01:01→17:55)
[2017-02-08] MEDS: ALUMINUM/MAGNES/SIMETH MAX STR 30 ML UDCUP PO SCH ×4 (01:02→18:00)
[2017-02-08] MEDS: PIPERACILLIN/TAZOBACTAM 3,375 MG in SODIUM CHLORIDE 0.9% 100 ML IV SCH ×3 (01:02→16:19)
[2017-02-08 02:04] LABS: Basophils # 0.1 10*3/uL (0.0-0.2); Basophils % 0.2 % (0.0-0.8); Hematocrit 27.1 VOL% (35.7-47.0); Hemoglobin 9.4 GM/DL (12.0-16.0); Immature Granulocytes % 6.9 %; Immature Granulocytes Absolute 1.89 #; Lymphocytes # 0.3 10*3/uL (1.4-4.0); Lymphocytes % 1.1 % (21.3-54.2); Mean Corpuscular HGB Conc 34.7 GM/DL (32-36); Mean Corpuscular Hemoglobin 31 PG (27-34); Mean Corpuscular Volume 89.7 FL (87-102); Monocytes % 3.8 % (1.7-12.7); NRBC # 0.14 10*3/uL; Neutrophils # 24.1 10*3/uL (1.4-7.4); Platelet Count 190 T/CUMM (130-400); Red Blood Count 3.02 MC/CUMM (3.8-5.5); Red Cell Distribution Width 15.5 % (9.3-17.3); White Blood Count 27.4 T/CUMM (4-12)
[2017-02-08 02:40] LABS: Magnesium 2.3 MG/DL (1.8-2.4); Osmolality,Calculated 286.5 MOS/KG (273-304)
[2017-02-08 02:45] LABS: Phosphorous 3.7 MG/DL (2.5-4.9); Prealbumin 22.1 MG/DL (20-40)
[2017-02-08] MEDS: MORPHINE 2 MG/1 ML SYRINGE IV PRN ×3 (03:35→16:10)
[2017-02-08] MEDS: hydrALAZINE 20 MG/1 ML VIAL IV PRN ×3 (03:35→18:07)
[2017-02-08 04:11] LABS: Band Neutrophils 4 % (0-10); Metamyelocytes 1 %; Myelocytes 4 %; Nucleated Red Blood Cells 1 (0-5); Segmented Neutrophils 90 % (50-85); Total Cells Counted 100
[2017-02-08 04:12] LABS: Anisocytosis 1+
[2017-02-08 04:13] LABS: Hypochromasia Slight; Platelet Estimate Normal
[2017-02-08] MEDS: ACYCLOVIR 800 MG TABLET PO SCH ×4 (05:35→21:30)
[2017-02-08] MEDS: CETIRIZINE 10 MG TABLET PO SCH ×2 (05:36→21:32)
[2017-02-08] MEDS: SODIUM CHLORIDE 0.9% 1,000 ML IV SCH (05:57)
[2017-02-08] MEDS: LEVALBUTEROL 0.63 MG/3 ML NEB RESP TX SCH ×5 (07:20→20:37)
[2017-02-08] MEDS: BUDESONIDE 0.25 MG/2 ML NEB RESP TX SCH ×2 (07:20→20:37)
[2017-02-08] MEDS: METOCLOPRAMIDE 10 MG/2 ML VIAL IV SCH ×3 (07:31→16:19)
[2017-02-08 09:03] LABS: Hematocrit 28.2 VOL% (35.7-47.0); Hemoglobin 9.8 GM/DL (12.0-16.0)
[2017-02-08] MEDS: methylPREDNISolone SOD SUC 40 MG/1 ML VIAL IV SCH ×2 (09:25→21:31)
[2017-02-08] MEDS: PHENOL 1.4% THROAT SPRAY 177 ML BOTTLE PO SCH ×4 (09:26→21:29)
[2017-02-08] MEDS: PANTOPRAZOLE 40 MG VIAL IV SCH (09:26)
[2017-02-08] MEDS: NYSTATIN 500,000 UNIT/5 ML UDCUP SWISH/SWAL SCH ×4 (09:26→21:31)
[2017-02-08] MEDS: AMIODARONE 200 MG TABLET PO SCH ×2 (10:24→21:30)
[2017-02-08] MEDS: FAT EMULSION 20% 250 ML IV SCH (13:43)
[2017-02-08] MEDS: Fluticasone/Vilanterol [Breo Ellipta 100-25 Mcg Inh] INH SCH (14:21)
[2017-02-08] MEDS: TRACE ELEMENTS (5) 1 ML, MULTIVITAMIN INJ 10 ML in AMINO ACIDS/DEXT/LYTES 5-15% 2,000 ML IV SCH (16:45)
[2017-02-08] MEDS ORDERED: INSULIN REGULAR 100 UNIT/ML SUBCUT SCH (18:00)
[2017-02-08] MEDS: ZALEPLON 5 MG CAPSULE PO PRN (22:23)
[2017-02-09] MEDS: PIPERACILLIN/TAZOBACTAM 3,375 MG in SODIUM CHLORIDE 0.9% 100 ML IV SCH ×3 (01:00→16:52)
[2017-02-09] MEDS: SODIUM CHLORIDE 0.9% 1,000 ML IV SCH ×2 (01:45→22:56)
[2017-02-09] MEDS: ALUMINUM/MAGNES/SIMETH MAX STR 30 ML UDCUP PO SCH ×3 (01:46→13:20)
[2017-02-09] MEDS: INSULIN REGULAR 100 UNIT/ML SUBCUT SCH ×4 (01:46→18:00)
[2017-02-09 05:57] LABS: Basophils # 0.1 10*3/uL (0.0-0.2); Basophils % 0.4 % (0.0-0.8); Hematocrit 29.9 VOL% (35.7-47.0); Hemoglobin 10.2 GM/DL (12.0-16.0); Immature Granulocytes % 8.4 %; Immature Granulocytes Absolute 2.27 #; Lymphocytes # 0.3 10*3/uL (1.4-4.0); Mean Corpuscular HGB Conc 34.1 GM/DL (32-36); Mean Corpuscular Hemoglobin 31 PG (27-34); Mean Corpuscular Volume 90.6 FL (87-102); Mean Platelet Volume 10.7 FL (9.6-12.0); Monocytes # 1.2 10*3/uL (0.11-0.8); Monocytes % 4.3 % (1.7-12.7); NRBC # 0.06 10*3/uL; Neutrophils # 23.2 10*3/uL (1.4-7.4); Neutrophils % 85.9 % (38.7-73.9); Platelet Count 241 T/CUMM (130-400); Red Cell Distribution Width 16.2 % (9.3-17.3)
[2017-02-09 06:22] LABS: Calcium 8.2 MG/DL (8.5-10.1); Magnesium 2.4 MG/DL (1.8-2.4); Osmolality,Calculated 286.5 MOS/KG (273-304)
[2017-02-09 06:27] LABS: Eosinophils 4 % (0-10); Hypochromasia 2+; Lymphocytes 28 % (20-55); Microcytosis 1+; Polychromasia Slight; Segmented Neutrophils 60 % (50-85); Target Cells Slight; Total Cells Counted 100
[2017-02-09 06:28] LABS: Platelet Estimate Adequate
[2017-02-09] MEDS: hydrALAZINE 20 MG/1 ML VIAL IV PRN (06:37)
[2017-02-09] MEDS: BUDESONIDE 0.25 MG/2 ML NEB RESP TX SCH ×2 (08:09→20:42)
[2017-02-09] MEDS: LEVALBUTEROL 0.63 MG/3 ML NEB RESP TX SCH ×4 (08:10→20:42)
[2017-02-09] MEDS: METOCLOPRAMIDE 10 MG/2 ML VIAL IV SCH ×2 (08:58→13:05)
[2017-02-09] MEDS: ASPIRIN CHEW 81 MG TABLET PO SCH (08:58)
[2017-02-09] MEDS: AMIODARONE 200 MG TABLET PO SCH ×3 (09:02→21:10)
[2017-02-09] MEDS ORDERED: METOPROLOL TARTRATE 25 MG TABLET PO ONE (09:05)
[2017-02-09] MEDS: PHENOL 1.4% THROAT SPRAY 177 ML BOTTLE PO SCH ×4 (09:28→21:10)
[2017-02-09] MEDS: methylPREDNISolone SOD SUC 40 MG/1 ML VIAL IV SCH ×2 (09:35→21:10)
[2017-02-09] MEDS: NYSTATIN 500,000 UNIT/5 ML UDCUP SWISH/SWAL SCH ×4 (09:35→21:10)
[2017-02-09] MEDS: ACYCLOVIR 800 MG TABLET PO SCH ×3 (09:35→21:09)
[2017-02-09] MEDS: PANTOPRAZOLE 40 MG VIAL IV SCH (09:35)
[2017-02-09] MEDS: TIOTROPIUM BROMIDE 1.25 MCG PO SCH ×2 (13:05→22:57)
[2017-02-09] MEDS: Fluticasone/Vilanterol [Breo Ellipta 100-25 Mcg Inh] INH SCH (13:05)
[2017-02-09] MEDS: Glycopyrrolate/Formoterol Fum [Bevespi Aerosphere Inhaler] INH SCH ×2 (13:05→22:57)
[2017-02-09] MEDS: FAT EMULSION 20% 250 ML IV SCH (14:14)
[2017-02-09] MEDS: METOPROLOL TARTRATE 25 MG TABLET PO SCH ×2 (15:19→21:09)
[2017-02-09] MEDS: TRACE ELEMENTS (5) 1 ML, MULTIVITAMIN INJ 10 ML in AMINO ACIDS/DEXT/LYTES 5-15% 2,000 ML IV SCH (17:21)
[2017-02-09] MEDS: CETIRIZINE 10 MG TABLET PO SCH (21:10)
[2017-02-09] MEDS: ZALEPLON 5 MG CAPSULE PO PRN (21:10)
[2017-02-09] MEDS: MORPHINE 2 MG/1 ML SYRINGE IV PRN (23:35)
[2017-02-10] MEDS: INSULIN REGULAR 100 UNIT/ML SUBCUT SCH ×4 (01:30→17:49)
[2017-02-10] MEDS: PIPERACILLIN/TAZOBACTAM 3,375 MG in SODIUM CHLORIDE 0.9% 100 ML IV SCH ×3 (01:30→16:30)
[2017-02-10 06:11] LABS: Basophils # 0.1 10*3/uL (0.0-0.2); Basophils % 0.4 % (0.0-0.8); Hematocrit 29.6 VOL% (35.7-47.0); Hemoglobin 10.1 GM/DL (12.0-16.0); Immature Granulocytes % 7.5 %; Immature Granulocytes Absolute 2.09 #; Lymphocytes # 0.3 10*3/uL (1.4-4.0); Lymphocytes % 0.9 % (21.3-54.2); Mean Corpuscular HGB Conc 34.1 GM/DL (32-36); Mean Corpuscular Hemoglobin 31 PG (27-34); Mean Corpuscular Volume 90.5 FL (87-102); Mean Platelet Volume 10.5 FL (9.6-12.0); Monocytes # 1.8 10*3/uL (0.11-0.8); Monocytes % 6.2 % (1.7-12.7); NRBC # 0.06 10*3/uL; Neutrophils # 23.8 10*3/uL (1.4-7.4); Platelet Count 222 T/CUMM (130-400); Red Blood Count 3.27 MC/CUMM (3.8-5.5)
[2017-02-10 06:34] LABS: Band Neutrophils 2 % (0-10); Segmented Neutrophils 92 % (50-85); Total Cells Counted 100
[2017-02-10 06:35] LABS: Giant Platelets Few; Hypochromasia 1+; Microcytosis Slight; Ovalocytes Slight; Platelet Estimate Adequate
[2017-02-10 06:43] LABS: Phosphorous 3.5 MG/DL (2.5-4.9); Prealbumin 25.1 MG/DL (20-40)
[2017-02-10 06:51] LABS: Calcium 8.1 MG/DL (8.5-10.1); Magnesium 2.2 MG/DL (1.8-2.4); Osmolality,Calculated 281.8 MOS/KG (273-304); Potassium 3.8 MMOL/L (3.5-5.1)
[2017-02-10] MEDS: SODIUM CHLORIDE 0.9% 1,000 ML IV SCH ×2 (07:15→17:05)
[2017-02-10] MEDS: POTASSIUM CHLORIDE RIDER 10 MEQ in PREMIX 1 EACH IV PRN ×2 (07:17→08:13)
[2017-02-10] MEDS: LEVALBUTEROL 0.63 MG/3 ML NEB RESP TX SCH ×4 (07:29→19:56)
[2017-02-10] MEDS: BUDESONIDE 0.25 MG/2 ML NEB RESP TX SCH ×2 (07:30→19:56)
[2017-02-10] MEDS: TIOTROPIUM BROMIDE 1.25 MCG PO SCH (09:03)
[2017-02-10] MEDS: Glycopyrrolate/Formoterol Fum [Bevespi Aerosphere Inhaler] INH SCH ×2 (09:03→22:40)
[2017-02-10] MEDS: Fluticasone/Vilanterol [Breo Ellipta 100-25 Mcg Inh] INH SCH (09:03)
[2017-02-10] MEDS: AMIODARONE 200 MG TABLET PO SCH ×3 (09:10→22:39)
[2017-02-10] MEDS: methylPREDNISolone SOD SUC 40 MG/1 ML VIAL IV SCH ×2 (09:10→22:39)
[2017-02-10] MEDS: METOPROLOL TARTRATE 25 MG TABLET PO SCH ×3 (09:10→22:39)
[2017-02-10] MEDS: ENOXAPARIN 40 MG/0.4 ML SYRINGE SUBCUT SCH (09:10)
[2017-02-10] MEDS: ACYCLOVIR 800 MG TABLET PO SCH ×3 (09:10→22:39)
[2017-02-10] MEDS: PHENOL 1.4% THROAT SPRAY 177 ML BOTTLE PO SCH ×4 (09:11→22:40)
[2017-02-10] MEDS: PANTOPRAZOLE 40 MG VIAL IV SCH (09:11)
[2017-02-10] MEDS: NYSTATIN 500,000 UNIT/5 ML UDCUP SWISH/SWAL SCH ×4 (09:11→22:39)
[2017-02-10] MEDS: VANCOMYCIN INJ 1,250 MG in SODIUM CHLORIDE 0.45% 250 ML IV SCH ×2 (09:12→22:38)
[2017-02-10] MEDS: amLODIPine 10 MG TABLET PO SCH (11:18)
[2017-02-10] MEDS: MORPHINE 2 MG/1 ML SYRINGE IV PRN (12:40)
[2017-02-10] MEDS: FAT EMULSION 20% 250 ML IV SCH (15:15)
[2017-02-10] MEDS: TRACE ELEMENTS (5) 1 ML, MULTIVITAMIN INJ 10 ML in AMINO ACIDS/DEXT/LYTES 5-15% 2,000 ML IV SCH (17:44)
[2017-02-10] MEDS: CETIRIZINE 10 MG TABLET PO SCH (22:39)
[2017-02-11] MEDS: PIPERACILLIN/TAZOBACTAM 3,375 MG in SODIUM CHLORIDE 0.9% 100 ML IV SCH ×3 (00:05→19:11)
[2017-02-11] MEDS: INSULIN REGULAR 100 UNIT/ML SUBCUT SCH ×4 (05:39→18:10)
[2017-02-11 06:24] LABS: Basophils # 0.1 10*3/uL (0.0-0.2); Basophils % 0.2 % (0.0-0.8); Hematocrit 27.3 VOL% (35.7-47.0); Hemoglobin 9.6 GM/DL (12.0-16.0); Immature Granulocytes % 7.8 %; Immature Granulocytes Absolute 1.65 #; Lymphocytes # 0.3 10*3/uL (1.4-4.0); Lymphocytes % 1.4 % (21.3-54.2); Mean Corpuscular HGB Conc 35.2 GM/DL (32-36); Mean Corpuscular Hemoglobin 31 PG (27-34); Mean Corpuscular Volume 88.6 FL (87-102); Mean Platelet Volume 10.4 FL (9.6-12.0); Monocytes # 1.1 10*3/uL (0.11-0.8); NRBC # 0.05 10*3/uL; Neutrophils # 18.2 10*3/uL (1.4-7.4); Neutrophils % 85.6 % (38.7-73.9); Platelet Count 214 T/CUMM (130-400); Red Blood Count 3.08 MC/CUMM (3.8-5.5); Red Cell Distribution Width 16.3 % (9.3-17.3); White Blood Count 21.2 T/CUMM (4-12)
[2017-02-11 06:48] LABS: Calcium 8.1 MG/DL (8.5-10.1); Osmolality,Calculated 280.5 MOS/KG (273-304); Potassium 4.3 MMOL/L (3.5-5.1)
[2017-02-11 06:54] LABS: Band Neutrophils 3 % (0-10); Hypochromasia 1+; Lymphocytes 2 % (20-55); Microcytosis 1+; Segmented Neutrophils 90 % (50-85); Total Cells Counted 100
[2017-02-11 06:55] LABS: Platelet Estimate Normal
[2017-02-11] MEDS: TIOTROPIUM BROMIDE 1.25 MCG PO SCH ×3 (07:45→20:41)
[2017-02-11] MEDS: LEVALBUTEROL 0.63 MG/3 ML NEB RESP TX SCH ×4 (08:30→19:05)
[2017-02-11] MEDS: BUDESONIDE 0.25 MG/2 ML NEB RESP TX SCH ×2 (08:30→19:05)
[2017-02-11] MEDS: Fluticasone/Vilanterol [Breo Ellipta 100-25 Mcg Inh] INH SCH (09:30)
[2017-02-11] MEDS: PHENOL 1.4% THROAT SPRAY 177 ML BOTTLE PO SCH ×5 (09:30→20:44)
[2017-02-11] MEDS: Glycopyrrolate/Formoterol Fum [Bevespi Aerosphere Inhaler] INH SCH ×2 (09:30→20:41)
[2017-02-11] MEDS ORDERED: MORPHINE 2 MG/1 ML SYRINGE ONE (09:33)
[2017-02-11] MEDS: MORPHINE 2 MG/1 ML SYRINGE IV PRN ×2 (09:35→19:54)
[2017-02-11] MEDS: VANCOMYCIN INJ 1,250 MG in SODIUM CHLORIDE 0.45% 250 ML IV SCH ×2 (10:07→20:38)
[2017-02-11] MEDS: ACYCLOVIR 800 MG TABLET PO SCH ×3 (10:12→20:38)
[2017-02-11] MEDS: amLODIPine 10 MG TABLET PO SCH (10:12)
[2017-02-11] MEDS: ASPIRIN CHEW 81 MG TABLET PO SCH (10:13)
[2017-02-11] MEDS: METOPROLOL TARTRATE 25 MG TABLET PO SCH ×3 (10:13→20:39)
[2017-02-11] MEDS: AMIODARONE 200 MG TABLET PO SCH ×3 (10:13→20:38)
[2017-02-11] MEDS: ENOXAPARIN 40 MG/0.4 ML SYRINGE SUBCUT SCH (10:24)
[2017-02-11] MEDS: NYSTATIN 500,000 UNIT/5 ML UDCUP SWISH/SWAL SCH ×4 (10:24→20:38)
[2017-02-11] MEDS: PANTOPRAZOLE 40 MG VIAL IV SCH (10:25)
[2017-02-11] MEDS: IPRATROPIUM 500 MCG/2.5 ML NEB RESP TX PRN (19:05)
[2017-02-11] MEDS: CETIRIZINE 10 MG TABLET PO SCH (20:39)
[2017-02-12] MEDS: INSULIN REGULAR 100 UNIT/ML SUBCUT SCH ×4 (00:25→18:40)
[2017-02-12] MEDS: PIPERACILLIN/TAZOBACTAM 3,375 MG in SODIUM CHLORIDE 0.9% 100 ML IV SCH ×2 (00:33→09:25)
[2017-02-12 06:12] LABS: Basophils % 0.2 % (0.0-0.8); Eosinophils # 0.1 10*3/uL (0.0-0.87); Eosinophils % 0.3 % (0.00-10.9); Hemoglobin 9.5 GM/DL (12.0-16.0); Immature Granulocytes % 6.6 %; Immature Granulocytes Absolute 1.09 #; Lymphocytes # 0.5 10*3/uL (1.4-4.0); Lymphocytes % 2.7 % (21.3-54.2); Mean Corpuscular HGB Conc 33.9 GM/DL (32-36); Mean Corpuscular Hemoglobin 31 PG (27-34); Mean Corpuscular Volume 91.5 FL (87-102); Mean Platelet Volume 10.6 FL (9.6-12.0); Monocytes # 1.2 10*3/uL (0.11-0.8); Monocytes % 7.4 % (1.7-12.7); NRBC # 0.08 10*3/uL; Neutrophils # 13.7 10*3/uL (1.4-7.4); Neutrophils % 82.8 % (38.7-73.9); Platelet Count 186 T/CUMM (130-400); Red Blood Count 3.06 MC/CUMM (3.8-5.5); Red Cell Distribution Width 17.1 % (9.3-17.3); White Blood Count 16.6 T/CUMM (4-12)
[2017-02-12 06:37] LABS: Calcium 8.3 MG/DL (8.5-10.1); Osmolality,Calculated 286.1 MOS/KG (273-304); Potassium 3.8 MMOL/L (3.5-5.1)
[2017-02-12] MEDS: MORPHINE 2 MG/1 ML SYRINGE IV PRN ×2 (06:56→19:48)
[2017-02-12] MEDS: BUDESONIDE 0.25 MG/2 ML NEB RESP TX SCH ×2 (06:59→19:38)
[2017-02-12] MEDS: LEVALBUTEROL 0.63 MG/3 ML NEB RESP TX SCH ×4 (06:59→19:38)
[2017-02-12 07:41] LABS: Band Neutrophils 5 % (0-10); Howell-Jolly Bodies Few; Hypochromasia 1+; Lymphocytes 3 % (20-55); Macrocytosis 1+; Myelocytes 1 %; Platelet Estimate Adequate; Polychromasia Slight; Segmented Neutrophils 86 % (50-85); Total Cells Counted 100
[2017-02-12] MEDS ORDERED: TUBERCULIN SKIN TEST 0.1 ML SYRINGE INTRADERM ONE (07:52)
[2017-02-12] MEDS ORDERED: methylPREDNISolone SOD SUC 40 MG/1 ML VIAL IV SCH (08:00)
[2017-02-12] MEDS: methylPREDNISolone SOD SUC 40 MG/1 ML VIAL IV SCH (08:10)
[2017-02-12] MEDS: ACYCLOVIR 800 MG TABLET PO SCH ×3 (09:29→20:55)
[2017-02-12] MEDS: METOPROLOL TARTRATE 25 MG TABLET PO SCH ×3 (09:29→20:55)
[2017-02-12] MEDS: amLODIPine 10 MG TABLET PO SCH (09:29)
[2017-02-12] MEDS: AMIODARONE 200 MG TABLET PO SCH ×3 (09:29→20:56)
[2017-02-12] MEDS: ENOXAPARIN 40 MG/0.4 ML SYRINGE SUBCUT SCH (09:30)
[2017-02-12] MEDS: Glycopyrrolate/Formoterol Fum [Bevespi Aerosphere Inhaler] INH SCH ×2 (09:34→20:29)
[2017-02-12] MEDS: PHENOL 1.4% THROAT SPRAY 177 ML BOTTLE PO SCH ×4 (09:34→20:55)
[2017-02-12] MEDS: Fluticasone/Vilanterol [Breo Ellipta 100-25 Mcg Inh] INH SCH (09:34)
[2017-02-12] MEDS: NYSTATIN 500,000 UNIT/5 ML UDCUP SWISH/SWAL SCH ×4 (09:35→20:55)
[2017-02-12] MEDS: PANTOPRAZOLE 40 MG VIAL IV SCH (09:38)
[2017-02-12] MEDS: TIOTROPIUM BROMIDE 1.25 MCG PO SCH (09:46)
[2017-02-12] MEDS: predniSONE 10 MG TABLET PO SCH (09:48)
[2017-02-12] MEDS: VANCOMYCIN INJ 1,250 MG in SODIUM CHLORIDE 0.45% 250 ML IV SCH (10:42)
[2017-02-12] MEDS: NITROFURANTOIN MACRO/MONO 100 MG CAPSULE PO SCH ×2 (10:53→23:15)
[2017-02-12] MEDS: IPRATROPIUM 500 MCG/2.5 ML NEB RESP TX SCH ×2 (13:20→19:38)
[2017-02-12] MEDS: CETIRIZINE 10 MG TABLET PO SCH (20:55)
[2017-02-13] MEDS: IPRATROPIUM 500 MCG/2.5 ML NEB RESP TX SCH ×3 (00:11→11:15)
[2017-02-13 05:07] LABS: Basophils % 0.2 % (0.0-0.8); Eosinophils % 0.1 % (0.00-10.9); Hematocrit 27.8 VOL% (35.7-47.0); Hemoglobin 9.4 GM/DL (12.0-16.0); Immature Granulocytes % 5.2 %; Immature Granulocytes Absolute 1.03 #; Lymphocytes # 0.3 10*3/uL (1.4-4.0); Lymphocytes % 1.7 % (21.3-54.2); Mean Corpuscular HGB Conc 33.8 GM/DL (32-36); Mean Corpuscular Hemoglobin 31 PG (27-34); Mean Corpuscular Volume 90.8 FL (87-102); Mean Platelet Volume 10.7 FL (9.6-12.0); Monocytes # 1.3 10*3/uL (0.11-0.8); Monocytes % 6.3 % (1.7-12.7); NRBC # 0.03 10*3/uL; Neutrophils # 17.2 10*3/uL (1.4-7.4); Neutrophils % 86.5 % (38.7-73.9); Platelet Count 237 T/CUMM (130-400); Red Blood Count 3.06 MC/CUMM (3.8-5.5); Red Cell Distribution Width 17.5 % (9.3-17.3); White Blood Count 19.9 T/CUMM (4-12)
[2017-02-13 05:53] LABS: Calcium 8.5 MG/DL (8.5-10.1); Magnesium 2.3 MG/DL (1.8-2.4); Osmolality,Calculated 295.4 MOS/KG (273-304); Potassium 3.7 MMOL/L (3.5-5.1)
[2017-02-13 06:28] LABS: Band Neutrophils 1 % (0-10); Hypochromasia 1+; Lymphocytes 3 % (20-55); Microcytosis 1+; Segmented Neutrophils 91 % (50-85); Total Cells Counted 100
[2017-02-13 06:29] LABS: Platelet Estimate Normal
[2017-02-13] MEDS: INSULIN REGULAR 100 UNIT/ML SUBCUT SCH ×3 (06:55→12:20)
[2017-02-13] MEDS: LEVALBUTEROL 0.63 MG/3 ML NEB RESP TX SCH ×3 (07:26→15:27)
[2017-02-13] MEDS: BUDESONIDE 0.25 MG/2 ML NEB RESP TX SCH (07:26)
[2017-02-13] MEDS: PHENOL 1.4% THROAT SPRAY 177 ML BOTTLE PO SCH ×2 (08:40→12:20)
[2017-02-13] MEDS: ASPIRIN CHEW 81 MG TABLET PO SCH (08:55)
[2017-02-13] MEDS: METOPROLOL TARTRATE 25 MG TABLET PO SCH ×2 (08:55→15:44)
[2017-02-13] MEDS: predniSONE 10 MG TABLET PO SCH (08:55)
[2017-02-13] MEDS: AMIODARONE 200 MG TABLET PO SCH (08:56)
[2017-02-13] MEDS: ACYCLOVIR 800 MG TABLET PO SCH ×2 (08:56→15:44)
[2017-02-13] MEDS: amLODIPine 10 MG TABLET PO SCH (08:56)
[2017-02-13] MEDS: NYSTATIN 500,000 UNIT/5 ML UDCUP SWISH/SWAL SCH ×2 (08:58→12:20)
[2017-02-13] MEDS: ENOXAPARIN 40 MG/0.4 ML SYRINGE SUBCUT SCH (08:58)
[2017-02-13] MEDS: PANTOPRAZOLE 40 MG VIAL IV SCH (09:03)
[2017-02-13] MEDS: Fluticasone/Vilanterol [Breo Ellipta 100-25 Mcg Inh] INH SCH (10:12)
[2017-02-13] MEDS: NITROFURANTOIN MACRO/MONO 100 MG CAPSULE PO SCH (10:13)
[2017-02-13] MEDS: Glycopyrrolate/Formoterol Fum [Bevespi Aerosphere Inhaler] INH SCH (10:13)
[2017-02-13 10:57] VITALS: BP 126/61
[2017-02-13] MEDS ORDERED: AMIODARONE 200 MG TABLET PO SCH (21:00)
== END 2017-02-13 15:55 | disposition swing bed (61) | DRG 329 ==
LOC: N.ED 18:05 → N.EDINP 20:14 → N.3E 20:41 → N.ICU 01-26 17:10 → N.TELES 01-28 20:47 → N.ICU 02-05 22:01 → N.3E 02-10 15:01
PROVIDERS: ADMIT Surgery; ATTEND Surgery

== ENCOUNTER 2017-02-28 05:45 | Inpatient (IN) ==
[2017-02-28] MEDS ORDERED: DIAZEPAM 5 MG TABLET PO ONE (07:56)
[2017-02-28] MEDS ORDERED: FAMOTIDINE 20 MG TABLET PO ONE (07:56)
[2017-02-28] MEDS ORDERED: GLYCOPYRROLATE 0.4 MG/2 ML VIAL IV ONE (08:02)
[2017-02-28] MEDS ORDERED: GLYCOPYRROLATE 0.4 MG/2 ML VIAL ONE (09:00)
[2017-02-28] MEDS ORDERED: FAMOTIDINE 20 MG TABLET ONE (09:12)
[2017-02-28] MEDS ORDERED: DIAZEPAM 5 MG TABLET ONE (09:12)
[2017-02-28] MEDS ORDERED: LACTATED RINGERS 1,000 ML IV SCH (09:30)
[2017-02-28] MEDS ORDERED: SUCCINYLCHOLINE 200 MG/10 ML VIAL ONE (12:38)
[2017-02-28] MEDS ORDERED: fentaNYL 100 MCG/2 ML VIAL ONE (12:38)
[2017-02-28] MEDS ORDERED: SEVOFLURANE 1 UNIT/15 MINUTE INH ONE (12:38)
[2017-02-28] MEDS ORDERED: PROPOFOL 200 MG/20 ML VIAL IV ONE (12:38)
[2017-02-28] MEDS ORDERED: QUEtiapine 25 MG TABLET PO ONE (18:32)
[2017-02-28] MEDS: METOPROLOL TARTRATE 25 MG TABLET PO SCH ×2 (19:28→20:36)
[2017-02-28] MEDS: IPRATROPIUM 500 MCG/2.5 ML NEB RESP TX SCH (19:47)
[2017-02-28] MEDS: AMIODARONE 200 MG TABLET PO SCH (20:37)
[2017-02-28] MEDS: CETIRIZINE 10 MG TABLET PO SCH (20:37)
[2017-03-01] MEDS: IPRATROPIUM 500 MCG/2.5 ML NEB RESP TX SCH ×4 (01:02→19:57)
[2017-03-01] MEDS: METOPROLOL TARTRATE 25 MG TABLET PO SCH ×3 (09:56→20:40)
[2017-03-01] MEDS: AMIODARONE 200 MG TABLET PO SCH ×2 (09:56→20:40)
[2017-03-01] MEDS: predniSONE 10 MG TABLET PO SCH (09:57)
[2017-03-01] MEDS: PANTOPRAZOLE 40 MG TABLET PO SCH (09:57)
[2017-03-01] MEDS: amLODIPine 10 MG TABLET PO SCH (09:57)
[2017-03-01] MEDS ORDERED: LEVALBUTEROL INH PRN (15:30)
[2017-03-01] MEDS ORDERED: CALCIUM CARBONATE CHEW 500 MG TABLET PO PRN (15:30)
[2017-03-01] MEDS ORDERED: IPRATROPIUM 0.06% NASAL SPRAY 15 ML BOTTLE BOTH NARES PRN (16:27)
[2017-03-01] MEDS: LEVALBUTEROL 0.63 MG/3 ML NEB RESP TX PRN (16:30)
[2017-03-01] MEDS ORDERED: QUEtiapine 25 MG TABLET PO ONE (18:32)
[2017-03-01] MEDS: CETIRIZINE 10 MG TABLET PO SCH (20:40)
[2017-03-01] MEDS: QUEtiapine 25 MG TABLET PO SCH (20:40)
[2017-03-01] MEDS ORDERED: TIOTROPIUM BROMIDE 1.25 MCG PO SCH (21:00)
[2017-03-01] MEDS ORDERED: QUEtiapine 25 MG TABLET PO SCH (21:00)
[2017-03-01] MEDS ORDERED: AMIODARONE 200 MG TABLET PO SCH (21:00)
[2017-03-01] MEDS ORDERED: CETIRIZINE 10 MG TABLET PO SCH (21:00)
[2017-03-01] MEDS ORDERED: METOPROLOL TARTRATE 25 MG TABLET PO SCH (21:00)
[2017-03-01] MEDS: PHENOL 1.4% THROAT SPRAY 177 ML BOTTLE PO SCH (22:37)
[2017-03-02] MEDS: IPRATROPIUM 500 MCG/2.5 ML NEB RESP TX SCH ×4 (07:33→19:31)
[2017-03-02] MEDS ORDERED: amLODIPine 10 MG TABLET PO SCH (09:00)
[2017-03-02] MEDS ORDERED: BREO ELLIPTA INH SCH (09:00)
[2017-03-02] MEDS ORDERED: predniSONE 10 MG TABLET PO SCH (09:00)
[2017-03-02] MEDS ORDERED: PANTOPRAZOLE 40 MG TABLET PO SCH (09:00)
[2017-03-02] MEDS: PHENOL 1.4% THROAT SPRAY 177 ML BOTTLE PO SCH ×4 (09:09→21:30)
[2017-03-02] MEDS: AMIODARONE 200 MG TABLET PO SCH ×2 (09:10→21:25)
[2017-03-02] MEDS: METOPROLOL TARTRATE 25 MG TABLET PO SCH ×3 (09:10→21:25)
[2017-03-02] MEDS: ASPIRIN CHEW 81 MG TABLET PO SCH (09:10)
[2017-03-02] MEDS: PANTOPRAZOLE 40 MG TABLET PO SCH (09:11)
[2017-03-02] MEDS: amLODIPine 10 MG TABLET PO SCH (09:15)
[2017-03-02] MEDS: predniSONE 10 MG TABLET PO SCH (09:16)
[2017-03-02] MEDS ORDERED: KETOROLAC 30 MG/1 ML VIAL IV PRN (15:27)
[2017-03-02] MEDS ORDERED: IBUPROFEN 600 MG TABLET PO PRN (15:27)
[2017-03-02] MEDS: CETIRIZINE 10 MG TABLET PO SCH (21:24)
[2017-03-02] MEDS: QUEtiapine 25 MG TABLET PO SCH (21:25)
[2017-03-03] MEDS: IPRATROPIUM 500 MCG/2.5 ML NEB RESP TX SCH ×4 (01:40→20:51)
[2017-03-03] MEDS ORDERED: ASPIRIN EC 325 MG TABLET PO ONE (04:04)
[2017-03-03] MEDS ORDERED: ASPIRIN CHEW 81 MG TABLET PO ONE (04:21)
[2017-03-03] MEDS ORDERED: VAGIFEM VAG SCH (09:00)
[2017-03-03] MEDS ORDERED: [UNRECOGNIZED DRUG - OTHER] INH SCH (09:00)
[2017-03-03] MEDS ORDERED: GLYCOPYRROLATE INH SCH (09:00)
[2017-03-03] MEDS ORDERED: ASPIRIN CHEW 81 MG TABLET PO SCH (09:00)
[2017-03-03] MEDS ORDERED: FORMOTEROL INH SCH (09:00)
[2017-03-03] MEDS: PHENOL 1.4% THROAT SPRAY 177 ML BOTTLE PO SCH ×4 (09:07→21:03)
[2017-03-03] MEDS: AMIODARONE 200 MG TABLET PO SCH ×2 (09:07→21:03)
[2017-03-03] MEDS: PANTOPRAZOLE 40 MG TABLET PO SCH (09:07)
[2017-03-03] MEDS: predniSONE 10 MG TABLET PO SCH (09:07)
[2017-03-03] MEDS: amLODIPine 10 MG TABLET PO SCH (09:07)
[2017-03-03] MEDS: METOPROLOL TARTRATE 25 MG TABLET PO SCH ×3 (09:07→21:03)
[2017-03-03] MEDS: MAGNESIUM HYDROXIDE SUSP 30 ML UDCUP PO PRN (14:01)
[2017-03-03] MEDS: CETIRIZINE 10 MG TABLET PO SCH (21:03)
[2017-03-03] MEDS: QUEtiapine 25 MG TABLET PO SCH (21:03)
[2017-03-03] MEDS: LEVALBUTEROL 0.63 MG/3 ML NEB RESP TX PRN (22:51)
[2017-03-04] MEDS: IPRATROPIUM 500 MCG/2.5 ML NEB RESP TX SCH ×3 (01:25→14:22)
[2017-03-04] MEDS: AMIODARONE 200 MG TABLET PO SCH ×2 (08:48→21:07)
[2017-03-04] MEDS: PHENOL 1.4% THROAT SPRAY 177 ML BOTTLE PO SCH ×4 (08:49→21:40)
[2017-03-04] MEDS: PANTOPRAZOLE 40 MG TABLET PO SCH (08:49)
[2017-03-04] MEDS: METOPROLOL TARTRATE 25 MG TABLET PO SCH ×3 (08:49→21:06)
[2017-03-04] MEDS: amLODIPine 10 MG TABLET PO SCH (08:49)
[2017-03-04] MEDS: ASPIRIN CHEW 81 MG TABLET PO SCH (08:49)
[2017-03-04] MEDS: predniSONE 10 MG TABLET PO SCH (08:49)
[2017-03-04] MEDS: MAGNESIUM HYDROXIDE SUSP 30 ML UDCUP PO PRN (08:59)
[2017-03-04] MEDS: LEVALBUTEROL 0.63 MG/3 ML NEB RESP TX PRN (11:54)
[2017-03-04] MEDS ORDERED: LORazepam 2 MG/1 ML VIAL ONE (12:38)
[2017-03-04] MEDS ORDERED: LORazepam 2 MG/1 ML VIAL IV ONE ×2 (12:40→13:05)
[2017-03-04 12:55] LABS: ABG Base Excess 4.7 MMOL/L (-2.5-2.5); ABG HCO3 28.5 MMOL/L (20-26); ABG Oxygen Saturation 87.6 % (95-100); ABG PO2 53.3 MM HG (80-95); ABG TCO2 26.5 MMOL/L (23-27); Allen Test Positive
[2017-03-04] MEDS ORDERED: FUROSEMIDE 40 MG/4 ML VIAL IV ONE (13:58)
[2017-03-04 14:05] LABS: Basophils # 0.1 10*3/uL (0.0-0.2); Basophils % 0.6 % (0.0-0.8); Eosinophils # 0.1 10*3/uL (0.0-0.87); Eosinophils % 0.5 % (0.00-10.9); Hematocrit 29.9 VOL% (35.7-47.0); Hemoglobin 9.7 GM/DL (12.0-16.0); Immature Granulocytes % 5.8 %; Immature Granulocytes Absolute 1.41 #; Lymphocytes # 1.1 10*3/uL (1.4-4.0); Lymphocytes % 4.6 % (21.3-54.2); Mean Corpuscular HGB Conc 32.4 GM/DL (32-36); Mean Corpuscular Hemoglobin 31 PG (27-34); Monocytes # 1.2 10*3/uL (0.11-0.8); Monocytes % 4.9 % (1.7-12.7); NRBC # 0.03 10*3/uL; Neutrophils # 20.2 10*3/uL (1.4-7.4); Neutrophils % 83.6 % (38.7-73.9); Platelet Count 317 T/CUMM (130-400); Red Blood Count 3.18 MC/CUMM (3.8-5.5); Red Cell Distribution Width 17.2 % (9.3-17.3); White Blood Count 24.1 T/CUMM (4-12)
[2017-03-04] MEDS: methylPREDNISolone SOD SUC 40 MG/1 ML VIAL IV SCH ×2 (14:16→21:07)
[2017-03-04] MEDS: ENOXAPARIN 80 MG/0.8 ML SYRINGE SUBCUT SCH (14:16)
[2017-03-04 14:24] LABS: Albumin 2.4 G/DL (3.4-5.0); Bilirubin,Total 0.6 MG/DL (0.2-1.0); Calcium 8.2 MG/DL (8.5-10.1); Total Protein 5.7 G/DL (6.4-8.3)
[2017-03-04 14:26] LABS: Troponin I Only < 0.015 NG/ML (0.00-0.045)
[2017-03-04 14:32] LABS: Eosinophils 1 % (0-10); Lymphocytes 2 % (20-55); Segmented Neutrophils 95 % (50-85); Total Cells Counted 100
[2017-03-04 14:33] LABS: Platelet Estimate Normal; Polychromasia Few
[2017-03-04] MEDS: LORazepam 1 MG TABLET PO PRN (15:04)
[2017-03-04] MEDS: MEROPENEM 500 MG in SYRINGE 1 EACH IV SCH ×2 (15:04→22:43)
[2017-03-04] MEDS: VANCOMYCIN INJ 1,000 MG in SODIUM CHLORIDE 0.9% 250 ML IV SCH (16:04)
[2017-03-04 17:55] LABS: Apearance,Urine CLEAR (Clear); Bilirubin,Urine Negative (Negative); Blood, Urine Small mg/dL (Negative); Glucose,Urine (UA) Negative (Negative); Ketones,Urine Negative (Negative); Mucus,Urine Occasional /LPF (Occasional); Nitrite,Urine Negative (Negative); Protein,Urine Negative; RBC,Urine 2 /HPF (0-4); Squamous Epithelial Cell,Urine Occasional /HPF (0-10); Urine Color Yellow (Yellow); Urine Specific Gravity 1.059 (1.001-1.035); Urine Urobilinogen < 2.0 EU/DL (0.2-1.0); WBC,Urine 3 /HPF (0-6)
[2017-03-04] MEDS: ALBUTEROL/IPRATROPIUM 3 ML NEB RESP TX SCH (19:16)
[2017-03-04] MEDS: CETIRIZINE 10 MG TABLET PO SCH (21:06)
[2017-03-04] MEDS: QUEtiapine 25 MG TABLET PO SCH (21:07)
[2017-03-05] MEDS: ENOXAPARIN 80 MG/0.8 ML SYRINGE SUBCUT SCH ×2 (00:57→13:05)
[2017-03-05] MEDS: ALBUTEROL/IPRATROPIUM 3 ML NEB RESP TX SCH ×4 (01:53→20:23)
[2017-03-05 04:42] LABS: Basophils % 0.2 % (0.0-0.8); Eosinophils % 0.1 % (0.00-10.9); Hematocrit 27.8 VOL% (35.7-47.0); Hemoglobin 8.7 GM/DL (12.0-16.0); Immature Granulocytes % 3.4 %; Immature Granulocytes Absolute 0.54 #; Lymphocytes # 0.6 10*3/uL (1.4-4.0); Lymphocytes % 3.9 % (21.3-54.2); Mean Corpuscular HGB Conc 31.3 GM/DL (32-36); Mean Corpuscular Hemoglobin 30 PG (27-34); Mean Corpuscular Volume 94.2 FL (87-102); Mean Platelet Volume 10.5 FL (9.6-12.0); Monocytes # 0.4 10*3/uL (0.11-0.8); Monocytes % 2.7 % (1.7-12.7); Neutrophils # 14.1 10*3/uL (1.4-7.4); Neutrophils % 89.7 % (38.7-73.9); Platelet Count 264 T/CUMM (130-400); Red Blood Count 2.95 MC/CUMM (3.8-5.5); White Blood Count 15.7 T/CUMM (4-12)
[2017-03-05] MEDS: VANCOMYCIN INJ 1,000 MG in SODIUM CHLORIDE 0.9% 250 ML IV SCH ×2 (04:54→16:33)
[2017-03-05 05:03] LABS: Calcium 7.7 MG/DL (8.5-10.1); Osmolality,Calculated 280.3 MOS/KG (273-304); Potassium 3.9 MMOL/L (3.5-5.1)
[2017-03-05 05:23] LABS: Band Neutrophils 1 % (0-10); Hypochromasia 1+; Lymphocytes 1 % (20-55); Metamyelocytes 1 %; Microcytosis 1+; Segmented Neutrophils 95 % (50-85); Total Cells Counted 100
[2017-03-05 05:24] LABS: Platelet Estimate Normal
[2017-03-05] MEDS: methylPREDNISolone SOD SUC 40 MG/1 ML VIAL IV SCH ×3 (06:08→23:15)
[2017-03-05] MEDS: MEROPENEM 500 MG in SYRINGE 1 EACH IV SCH ×3 (06:31→23:18)
[2017-03-05] MEDS ORDERED: BISACODYL 10 MG SUPP RECTAL PRN (07:29)
[2017-03-05] MEDS: AMIODARONE 200 MG TABLET PO SCH ×2 (09:10→20:29)
[2017-03-05] MEDS: predniSONE 10 MG TABLET PO SCH (09:10)
[2017-03-05] MEDS: METOPROLOL TARTRATE 25 MG TABLET PO SCH ×3 (09:10→20:29)
[2017-03-05] MEDS: PANTOPRAZOLE 40 MG TABLET PO SCH (09:11)
[2017-03-05] MEDS: amLODIPine 10 MG TABLET PO SCH (09:11)
[2017-03-05] MEDS: PHENOL 1.4% THROAT SPRAY 177 ML BOTTLE PO SCH ×4 (12:08→22:25)
[2017-03-05] MEDS: QUEtiapine 25 MG TABLET PO SCH (20:29)
[2017-03-05] MEDS: CETIRIZINE 10 MG TABLET PO SCH (20:29)
[2017-03-06] MEDS: ENOXAPARIN 80 MG/0.8 ML SYRINGE SUBCUT SCH ×2 (01:53→15:55)
[2017-03-06] MEDS: ALBUTEROL/IPRATROPIUM 3 ML NEB RESP TX SCH ×4 (04:30→19:27)
[2017-03-06] MEDS: VANCOMYCIN INJ 1,000 MG in SODIUM CHLORIDE 0.9% 250 ML IV SCH ×2 (04:57→17:00)
[2017-03-06] MEDS: methylPREDNISolone SOD SUC 40 MG/1 ML VIAL IV SCH ×3 (05:01→21:58)
[2017-03-06 05:46] LABS: Basophils # 0.1 10*3/uL (0.0-0.2); Basophils % 0.2 % (0.0-0.8); Hematocrit 29.1 VOL% (35.7-47.0); Hemoglobin 9.8 GM/DL (12.0-16.0); Immature Granulocytes % 4.8 %; Immature Granulocytes Absolute 1.19 #; Lymphocytes # 0.7 10*3/uL (1.4-4.0); Lymphocytes % 2.6 % (21.3-54.2); Mean Corpuscular HGB Conc 33.7 GM/DL (32-36); Mean Corpuscular Hemoglobin 31 PG (27-34); Mean Corpuscular Volume 92.1 FL (87-102); Mean Platelet Volume 10.8 FL (9.6-12.0); Monocytes # 0.7 10*3/uL (0.11-0.8); Monocytes % 2.8 % (1.7-12.7); NRBC # 0.06 10*3/uL; Neutrophils # 22.1 10*3/uL (1.4-7.4); Neutrophils % 89.6 % (38.7-73.9); Platelet Count 286 T/CUMM (130-400); Red Blood Count 3.16 MC/CUMM (3.8-5.5); Red Cell Distribution Width 17.2 % (9.3-17.3); White Blood Count 24.7 T/CUMM (4-12)
[2017-03-06 06:07] LABS: Band Neutrophils 2 % (0-10); Burr Cells Slight; Giant Platelets Few; Hypochromasia 1+; Lymphocytes 2 % (20-55); Microcytosis Slight; Ovalocytes Slight; Platelet Estimate Adequate; Segmented Neutrophils 93 % (50-85); Total Cells Counted 100
[2017-03-06 06:33] LABS: Calcium 8.4 MG/DL (8.5-10.1); Magnesium 2.2 MG/DL (1.8-2.4); Osmolality,Calculated 282.4 MOS/KG (273-304); Potassium 3.9 MMOL/L (3.5-5.1)
[2017-03-06] MEDS: MEROPENEM 500 MG in SYRINGE 1 EACH IV SCH ×3 (06:39→23:05)
[2017-03-06] MEDS: PHENOL 1.4% THROAT SPRAY 177 ML BOTTLE PO SCH ×4 (10:59→22:08)
[2017-03-06] MEDS: METOPROLOL TARTRATE 25 MG TABLET PO SCH ×3 (11:20→22:08)
[2017-03-06] MEDS: AMIODARONE 200 MG TABLET PO SCH ×2 (11:34→21:57)
[2017-03-06] MEDS: ASPIRIN CHEW 81 MG TABLET PO SCH (11:34)
[2017-03-06] MEDS: amLODIPine 10 MG TABLET PO SCH (11:35)
[2017-03-06] MEDS: PANTOPRAZOLE 40 MG TABLET PO SCH (11:35)
[2017-03-06] MEDS: predniSONE 10 MG TABLET PO SCH (11:35)
[2017-03-06] MEDS: QUEtiapine 25 MG TABLET PO SCH (21:57)
[2017-03-06] MEDS: CETIRIZINE 10 MG TABLET PO SCH (21:57)
[2017-03-06] MEDS: LEVALBUTEROL 0.63 MG/3 ML NEB RESP TX PRN (23:00)
[2017-03-07] MEDS: ENOXAPARIN 80 MG/0.8 ML SYRINGE SUBCUT SCH ×3 (00:53→21:44)
[2017-03-07] MEDS: ALBUTEROL/IPRATROPIUM 3 ML NEB RESP TX SCH ×4 (01:24→20:52)
[2017-03-07] MEDS: VANCOMYCIN INJ 1,000 MG in SODIUM CHLORIDE 0.9% 250 ML IV SCH ×2 (03:28→16:22)
[2017-03-07] MEDS: LEVALBUTEROL 0.63 MG/3 ML NEB RESP TX PRN (04:40)
[2017-03-07] MEDS: methylPREDNISolone SOD SUC 40 MG/1 ML VIAL IV SCH ×3 (05:45→21:46)
[2017-03-07] MEDS: MEROPENEM 500 MG in SYRINGE 1 EACH IV SCH ×2 (09:28→17:29)
[2017-03-07] MEDS: METOPROLOL TARTRATE 25 MG TABLET PO SCH ×3 (09:29→21:41)
[2017-03-07] MEDS: PANTOPRAZOLE 40 MG TABLET PO SCH (09:29)
[2017-03-07] MEDS: amLODIPine 10 MG TABLET PO SCH (09:29)
[2017-03-07] MEDS: AMIODARONE 200 MG TABLET PO SCH ×2 (09:29→21:41)
[2017-03-07] MEDS: predniSONE 10 MG TABLET PO SCH (09:29)
[2017-03-07] MEDS: PHENOL 1.4% THROAT SPRAY 177 ML BOTTLE PO SCH ×4 (09:36→21:44)
[2017-03-07] MEDS: LORazepam 1 MG TABLET PO PRN ×2 (16:22→23:25)
[2017-03-07] MEDS: CETIRIZINE 10 MG TABLET PO SCH (21:41)
[2017-03-07] MEDS: ZINC OXIDE PASTE 113 GM TUBE TOP SCH (21:44)
[2017-03-07] MEDS: QUEtiapine 25 MG TABLET PO SCH (21:46)
[2017-03-08] MEDS: MEROPENEM 500 MG in SYRINGE 1 EACH IV SCH ×3 (00:54→18:13)
[2017-03-08] MEDS: ALBUTEROL/IPRATROPIUM 3 ML NEB RESP TX SCH ×4 (02:31→19:48)
[2017-03-08] MEDS: methylPREDNISolone SOD SUC 40 MG/1 ML VIAL IV SCH ×3 (04:53→20:45)
[2017-03-08] MEDS: VANCOMYCIN INJ 1,000 MG in SODIUM CHLORIDE 0.9% 250 ML IV SCH ×2 (04:53→18:15)
[2017-03-08] MEDS: predniSONE 10 MG TABLET PO SCH (10:56)
[2017-03-08] MEDS: amLODIPine 10 MG TABLET PO SCH (10:56)
[2017-03-08] MEDS: ASPIRIN CHEW 81 MG TABLET PO SCH (10:56)
[2017-03-08] MEDS: METOPROLOL TARTRATE 25 MG TABLET PO SCH ×3 (10:56→20:45)
[2017-03-08] MEDS: AMIODARONE 200 MG TABLET PO SCH ×2 (10:56→20:45)
[2017-03-08] MEDS: PANTOPRAZOLE 40 MG TABLET PO SCH (10:56)
[2017-03-08] MEDS: ZINC OXIDE PASTE 113 GM TUBE TOP SCH ×2 (10:57→20:56)
[2017-03-08] MEDS: ENOXAPARIN 80 MG/0.8 ML SYRINGE SUBCUT SCH ×2 (10:57→20:44)
[2017-03-08] MEDS: PHENOL 1.4% THROAT SPRAY 177 ML BOTTLE PO SCH ×3 (10:57→20:56)
[2017-03-08] MEDS: LEVALBUTEROL 0.63 MG/3 ML NEB RESP TX PRN (11:22)
[2017-03-08] MEDS: ACYCLOVIR 5% OINT 5 GM TUBE TOP SCH ×2 (19:50→22:30)
[2017-03-08] MEDS: DOCUSATE SODIUM 100 MG CAPSULE PO SCH (20:45)
[2017-03-08] MEDS: QUEtiapine 25 MG TABLET PO SCH (20:45)
[2017-03-08] MEDS: LORazepam 1 MG TABLET PO PRN (20:45)
[2017-03-08] MEDS: CETIRIZINE 10 MG TABLET PO SCH (20:56)
[2017-03-09] MEDS: MEROPENEM 500 MG in SYRINGE 1 EACH IV SCH ×3 (02:30→17:14)
[2017-03-09] MEDS: methylPREDNISolone SOD SUC 40 MG/1 ML VIAL IV SCH ×2 (05:37→12:37)
[2017-03-09] MEDS: ACYCLOVIR 5% OINT 5 GM TUBE TOP SCH ×5 (06:31→22:02)
[2017-03-09] MEDS: ALBUTEROL/IPRATROPIUM 3 ML NEB RESP TX SCH ×4 (07:30→19:20)
[2017-03-09] MEDS: amLODIPine 10 MG TABLET PO SCH (10:00)
[2017-03-09] MEDS: AMIODARONE 200 MG TABLET PO SCH ×2 (10:00→21:58)
[2017-03-09] MEDS: PHENOL 1.4% THROAT SPRAY 177 ML BOTTLE PO SCH ×4 (10:01→22:02)
[2017-03-09] MEDS: DOCUSATE SODIUM 100 MG CAPSULE PO SCH ×2 (10:01→21:58)
[2017-03-09] MEDS: predniSONE 10 MG TABLET PO SCH (10:01)
[2017-03-09] MEDS: METOPROLOL TARTRATE 25 MG TABLET PO SCH ×3 (10:01→21:59)
[2017-03-09] MEDS: PANTOPRAZOLE 40 MG TABLET PO SCH (10:01)
[2017-03-09] MEDS: ZINC OXIDE PASTE 113 GM TUBE TOP SCH ×2 (10:02→22:01)
[2017-03-09] MEDS: VANCOMYCIN INJ 1,000 MG in SODIUM CHLORIDE 0.9% 250 ML IV SCH ×2 (10:08→20:00)
[2017-03-09] MEDS: ENOXAPARIN 80 MG/0.8 ML SYRINGE SUBCUT SCH ×2 (10:08→22:01)
[2017-03-09] MEDS: LORazepam 1 MG TABLET PO PRN (20:12)
[2017-03-09] MEDS: QUEtiapine 25 MG TABLET PO SCH (21:58)
[2017-03-09] MEDS: CETIRIZINE 10 MG TABLET PO SCH (21:58)
[2017-03-10] MEDS: methylPREDNISolone SOD SUC 40 MG/1 ML VIAL IV SCH ×2 (00:21→12:21)
[2017-03-10] MEDS: MEROPENEM 500 MG in SYRINGE 1 EACH IV SCH ×3 (00:24→17:10)
[2017-03-10] MEDS: ALBUTEROL/IPRATROPIUM 3 ML NEB RESP TX SCH ×4 (01:07→20:18)
[2017-03-10 05:22] LABS: Basophils # 0.1 10*3/uL (0.0-0.2); Basophils % 0.3 % (0.0-0.8); Hematocrit 29.2 VOL% (35.7-47.0); Hemoglobin 9.8 GM/DL (12.0-16.0); Immature Granulocytes % 6.4 %; Immature Granulocytes Absolute 1.61 #; Lymphocytes # 0.4 10*3/uL (1.4-4.0); Lymphocytes % 1.7 % (21.3-54.2); Mean Corpuscular HGB Conc 33.6 GM/DL (32-36); Mean Corpuscular Hemoglobin 31 PG (27-34); Mean Corpuscular Volume 93.3 FL (87-102); Mean Platelet Volume 10.7 FL (9.6-12.0); Monocytes # 0.7 10*3/uL (0.11-0.8); Monocytes % 2.9 % (1.7-12.7); Neutrophils # 22.3 10*3/uL (1.4-7.4); Neutrophils % 88.7 % (38.7-73.9); Platelet Count 318 T/CUMM (130-400); Red Blood Count 3.13 MC/CUMM (3.8-5.5); Red Cell Distribution Width 18.1 % (9.3-17.3); White Blood Count 25.2 T/CUMM (4-12)
[2017-03-10 05:56] LABS: Lymphocytes 7 % (20-55); Nucleated Red Blood Cells 3 (0-5); Platelet Estimate Normal; Polychromasia 1+; Segmented Neutrophils 91 % (50-85); Total Cells Counted 100
[2017-03-10] MEDS: ACYCLOVIR 5% OINT 5 GM TUBE TOP SCH ×5 (05:59→21:06)
[2017-03-10 06:05] LABS: Calcium 8.6 MG/DL (8.5-10.1); Magnesium 1.8 MG/DL (1.8-2.4); Osmolality,Calculated 286.1 MOS/KG (273-304)
[2017-03-10] MEDS: VANCOMYCIN INJ 1,000 MG in SODIUM CHLORIDE 0.9% 250 ML IV SCH ×2 (09:58→21:05)
[2017-03-10] MEDS: PANTOPRAZOLE 40 MG TABLET PO SCH (10:09)
[2017-03-10] MEDS: predniSONE 10 MG TABLET PO SCH (10:09)
[2017-03-10] MEDS: METOPROLOL TARTRATE 25 MG TABLET PO SCH ×3 (10:09→21:05)
[2017-03-10] MEDS: ASPIRIN CHEW 81 MG TABLET PO SCH (10:10)
[2017-03-10] MEDS: amLODIPine 10 MG TABLET PO SCH (10:10)
[2017-03-10] MEDS: DOCUSATE SODIUM 100 MG CAPSULE PO SCH ×2 (10:10→21:06)
[2017-03-10] MEDS: AMIODARONE 200 MG TABLET PO SCH ×2 (10:10→21:21)
[2017-03-10] MEDS: LORazepam 1 MG TABLET PO PRN ×3 (10:10→22:50)
[2017-03-10] MEDS: PHENOL 1.4% THROAT SPRAY 177 ML BOTTLE PO SCH ×4 (10:11→21:04)
[2017-03-10] MEDS: ZINC OXIDE PASTE 113 GM TUBE TOP SCH ×2 (10:11→21:18)
[2017-03-10] MEDS: ENOXAPARIN 80 MG/0.8 ML SYRINGE SUBCUT SCH ×2 (10:30→21:04)
[2017-03-10] MEDS: LEVALBUTEROL 0.63 MG/3 ML NEB RESP TX PRN ×2 (15:14→22:50)
[2017-03-10] MEDS: QUEtiapine 25 MG TABLET PO SCH (21:05)
[2017-03-10] MEDS: CETIRIZINE 10 MG TABLET PO SCH (21:05)
[2017-03-11] MEDS: MEROPENEM 500 MG in SYRINGE 1 EACH IV SCH ×2 (00:57→09:18)
[2017-03-11] MEDS: methylPREDNISolone SOD SUC 40 MG/1 ML VIAL IV SCH ×2 (01:00→13:03)
[2017-03-11] MEDS: ALBUTEROL/IPRATROPIUM 3 ML NEB RESP TX SCH ×2 (02:28→07:37)
[2017-03-11] MEDS: LEVALBUTEROL 0.63 MG/3 ML NEB RESP TX PRN ×2 (05:30→11:25)
[2017-03-11 07:45] VITALS: BP 156/79
[2017-03-11] MEDS: PHENOL 1.4% THROAT SPRAY 177 ML BOTTLE PO SCH ×2 (09:14→13:02)
[2017-03-11] MEDS: VANCOMYCIN INJ 1,000 MG in SODIUM CHLORIDE 0.9% 250 ML IV SCH (09:14)
[2017-03-11] MEDS: ACYCLOVIR 5% OINT 5 GM TUBE TOP SCH ×2 (09:14→09:15)
[2017-03-11] MEDS: DOCUSATE SODIUM 100 MG CAPSULE PO SCH (09:17)
[2017-03-11] MEDS: AMIODARONE 200 MG TABLET PO SCH (09:18)
[2017-03-11] MEDS: predniSONE 10 MG TABLET PO SCH (09:18)
[2017-03-11] MEDS: PANTOPRAZOLE 40 MG TABLET PO SCH (09:18)
[2017-03-11] MEDS: amLODIPine 10 MG TABLET PO SCH (09:18)
[2017-03-11] MEDS: ENOXAPARIN 80 MG/0.8 ML SYRINGE SUBCUT SCH (09:19)
[2017-03-11] MEDS: METOPROLOL TARTRATE 25 MG TABLET PO SCH (09:20)
[2017-03-11] MEDS: ZINC OXIDE PASTE 113 GM TUBE TOP SCH (09:20)
[2017-03-26] MEDS ORDERED: BONIVA 150 MG PO SCH (09:00)
== END 2017-03-11 14:03 | DRG 4 ==
LOC: N.5E 05:45 → N.OR 05:45 → N.SDSINP 05:47 → N.ICU 13:11 → N.5E 03-01 17:55 → N.CVR 03-04 12:21 → N.ICU 03-04 17:17 → N.2E 03-06 18:03
PROVIDERS: ADMIT Otolaryngology; ATTEND Otolaryngology

== ENCOUNTER 2017-04-13 15:40 | Inpatient (IN) ==
[2017-04-13] MEDS ORDERED: BUMETANIDE 1 MG/4 ML VIAL IV STA (17:26)
[2017-04-13] MEDS ORDERED: LEVALBUTEROL 1.25 MG/3 ML NEB RESP TX STA (17:26)
[2017-04-13 18:13] LABS: Basophils % 0.3 % (0.0-0.8); Eosinophils # 0.1 10*3/uL (0.0-0.87); Eosinophils % 0.7 % (0.00-10.9); Hemoglobin 9.1 GM/DL (12.0-16.0); Immature Granulocytes % 3.2 %; Immature Granulocytes Absolute 0.38 #; Lymphocytes # 0.8 10*3/uL (1.4-4.0); Lymphocytes % 6.3 % (21.3-54.2); Mean Corpuscular HGB Conc 30.3 GM/DL (32-36); Mean Corpuscular Hemoglobin 30 PG (27-34); Mean Platelet Volume 10.2 FL (9.6-12.0); Monocytes # 0.7 10*3/uL (0.11-0.8); Monocytes % 5.6 % (1.7-12.7); NRBC # 0.03 10*3/uL; Neutrophils % 83.9 % (38.7-73.9); Platelet Count 275 T/CUMM (130-400); Red Blood Count 3.03 MC/CUMM (3.8-5.5); Red Cell Distribution Width 17.2 % (9.3-17.3); White Blood Count 11.9 T/CUMM (4-12)
[2017-04-13] MEDS ORDERED: BUMETANIDE 1 MG/4 ML VIAL ONE (18:17)
[2017-04-13 18:22] LABS: INR 1.1
[2017-04-13 18:33] LABS: Alanine Aminotransferase 35 U/L (13-56); Alkaline Phosphatase 106 U/L (45-117); Aspartate Amino Transferase 23 U/L (0-37); Blood Urea Nitrogen 11 MG/DL (7-18); Calcium 8.1 MG/DL (8.5-10.1); Glucose 139 MG/DL (74-106); Magnesium 1.6 MG/DL (1.8-2.4); Osmolality,Calculated 281.3 MOS/KG (273-304); Potassium 3.2 MMOL/L (3.5-5.1); Sodium 141 MMOL/L (136-145); Troponin I Only < 0.015 NG/ML (0.00-0.045)
[2017-04-13 18:37] LABS: Apearance,Urine CLEAR (Clear); Bacteria,Urine Occasional /HPF (Few); Bilirubin,Urine Negative (Negative); Blood, Urine Negative (Negative); Glucose,Urine (UA) Negative (Negative); Ketones,Urine Negative (Negative); Mucus,Urine Occasional /LPF (Occasional); Nitrite,Urine Negative (Negative); Protein,Urine Negative; RBC,Urine 5 /HPF (0-4); Urine Color Yellow (Yellow); Urine Specific Gravity 1.009 (1.001-1.035); WBC,Urine 2 /HPF (0-6)
[2017-04-13] MEDS ORDERED: MAGNESIUM SULF RIDER 2 GM in PREMIX 1 EACH IV STA (18:43)
[2017-04-13] MEDS ORDERED: POTASSIUM CHLORIDE 20 MEQ TABLET PO STA (18:45)
[2017-04-13] MEDS ORDERED: MAGNESIUM SULF RIDER 50 ML IV ONE (19:42)
[2017-04-13] MEDS ORDERED: POTASSIUM CHLORIDE 20 MEQ TABLET PO ONE (19:42)
[2017-04-13] MEDS ORDERED: ACETAMINOPHEN 325 MG TABLET PO PRN (20:40)
[2017-04-13] MEDS ORDERED: ONDANSETRON 4 MG/2 ML VIAL IV PRN (20:40)
[2017-04-13] MEDS ORDERED: MORPHINE 2 MG/1 ML SYRINGE IV PRN (20:40)
[2017-04-13] MEDS: DOCUSATE SODIUM 100 MG CAPSULE PO SCH (21:02)
[2017-04-13] MEDS: SODIUM CHLORIDE 0.9% 1,000 ML IV SCH (21:03)
[2017-04-13] MEDS ORDERED: ALBUTEROL 2.5 MG/3 ML NEB RESP TX SCH (23:00)
[2017-04-14] MEDS: LEVALBUTEROL 1.25 MG/3 ML NEB RESP TX SCH ×7 (00:34→23:30)
[2017-04-14 04:46] LABS: Basophils % 0.4 % (0.0-0.8); Eosinophils # 0.6 10*3/uL (0.0-0.87); Hematocrit 26.5 VOL% (35.7-47.0); Hemoglobin 8.3 GM/DL (12.0-16.0); Immature Granulocytes % 2.4 %; Immature Granulocytes Absolute 0.25 #; Lymphocytes % 9.6 % (21.3-54.2); Mean Corpuscular HGB Conc 31.3 GM/DL (32-36); Mean Corpuscular Hemoglobin 31 PG (27-34); Mean Corpuscular Volume 97.8 FL (87-102); Mean Platelet Volume 10.9 FL (9.6-12.0); Monocytes % 9.9 % (1.7-12.7); NRBC # 0.05 10*3/uL; Neutrophils # 7.5 10*3/uL (1.4-7.4); Neutrophils % 71.7 % (38.7-73.9); Platelet Count 256 T/CUMM (130-400); Red Blood Count 2.71 MC/CUMM (3.8-5.5); Red Cell Distribution Width 17.1 % (9.3-17.3); White Blood Count 10.5 T/CUMM (4-12)
[2017-04-14 05:26] LABS: Albumin 2.5 G/DL (3.4-5.0); Bilirubin,Total 0.9 MG/DL (0.2-1.0); Calcium 7.2 MG/DL (8.5-10.1); Magnesium 1.9 MG/DL (1.8-2.4); Osmolality,Calculated 288.4 MOS/KG (273-304); Potassium 3.2 MMOL/L (3.5-5.1); Total Protein 4.8 G/DL (6.4-8.3)
[2017-04-14] MEDS ORDERED: BUMETANIDE 1 MG/4 ML VIAL IV SCH (08:00)
[2017-04-14] MEDS: ASPIRIN CHEW 81 MG TABLET PO SCH (08:52)
[2017-04-14] MEDS: METOPROLOL TARTRATE 25 MG TABLET PO SCH ×3 (08:53→21:39)
[2017-04-14] MEDS: AMIODARONE 200 MG TABLET PO SCH ×2 (08:53→21:35)
[2017-04-14] MEDS: PANTOPRAZOLE 40 MG TABLET PO SCH (08:53)
[2017-04-14] MEDS ORDERED: PANTOPRAZOLE 40 MG VIAL IV SCH (09:00)
[2017-04-14] MEDS ORDERED: predniSONE 10 MG TABLET PO SCH (09:00)
[2017-04-14] MEDS: DOCUSATE SODIUM 100 MG CAPSULE PO SCH ×2 (11:13→21:31)
[2017-04-14] MEDS: ENOXAPARIN 40 MG/0.4 ML SYRINGE SUBCUT SCH (15:30)
[2017-04-14] MEDS ORDERED: LEVALBUTEROL 1.25 MG/3 ML NEB RESP TX PRN (17:16)
[2017-04-14] MEDS ORDERED: FUROSEMIDE 40 MG/4 ML VIAL IV ONE (19:03)
[2017-04-14] MEDS: QUEtiapine 25 MG TABLET PO SCH (21:31)
[2017-04-14] MEDS: ALPRAZolam 0.25 MG TABLET PO PRN (21:31)
[2017-04-14] MEDS: predniSONE 10 MG TABLET PO SCH (21:39)
[2017-04-14] MEDS: SODIUM CHLORIDE 0.9% 1,000 ML IV SCH (22:22)
[2017-04-15] MEDS: LEVALBUTEROL 1.25 MG/3 ML NEB RESP TX SCH ×5 (03:20→19:07)
[2017-04-15 05:29] LABS: Basophils % 0.4 % (0.0-0.8); Eosinophils # 0.4 10*3/uL (0.0-0.87); Eosinophils % 3.4 % (0.00-10.9); Hematocrit 28.8 VOL% (35.7-47.0); Hemoglobin 8.8 GM/DL (12.0-16.0); Immature Granulocytes Absolute 0.54 #; Lymphocytes # 0.7 10*3/uL (1.4-4.0); Mean Corpuscular HGB Conc 30.6 GM/DL (32-36); Mean Corpuscular Hemoglobin 30 PG (27-34); Mean Corpuscular Volume 99.3 FL (87-102); Mean Platelet Volume 11.1 FL (9.6-12.0); Monocytes # 0.9 10*3/uL (0.11-0.8); NRBC # 0.05 10*3/uL; Neutrophils # 8.3 10*3/uL (1.4-7.4); Neutrophils % 77.2 % (38.7-73.9); Platelet Count 275 T/CUMM (130-400); Red Cell Distribution Width 17.2 % (9.3-17.3); White Blood Count 10.8 T/CUMM (4-12)
[2017-04-15 05:53] LABS: Band Neutrophils 1 % (0-10); Eosinophils 8 % (0-10); Giant Platelets Few; Hypochromasia 1+; Lymphocytes 5 % (20-55); Ovalocytes Slight; Platelet Estimate Adequate; Segmented Neutrophils 82 % (50-85); Total Cells Counted 100
[2017-04-15 05:55] LABS: Calcium 7.5 MG/DL (8.5-10.1); Osmolality,Calculated 285.8 MOS/KG (273-304); Potassium 3.5 MMOL/L (3.5-5.1)
[2017-04-15] MEDS ORDERED: FUROSEMIDE 20 MG TABLET PO SCH (10:02)
[2017-04-15] MEDS: DOCUSATE SODIUM 100 MG CAPSULE PO SCH ×2 (10:26→21:15)
[2017-04-15] MEDS: AMIODARONE 200 MG TABLET PO SCH ×2 (10:26→21:15)
[2017-04-15] MEDS: ENOXAPARIN 40 MG/0.4 ML SYRINGE SUBCUT SCH (10:26)
[2017-04-15] MEDS: METOPROLOL TARTRATE 25 MG TABLET PO SCH ×4 (10:27→21:17)
[2017-04-15] MEDS: predniSONE 10 MG TABLET PO SCH ×2 (10:27→21:15)
[2017-04-15] MEDS: PANTOPRAZOLE 40 MG TABLET PO SCH (10:27)
[2017-04-15] MEDS ORDERED: ZINC OXIDE PASTE 113 GM TUBE TOP PRN (10:35)
[2017-04-15 12:55] LABS: Troponin I Only < 0.015 NG/ML (0.00-0.045)
[2017-04-15 15:16] LABS: Troponin I Only < 0.015 NG/ML (0.00-0.045)
[2017-04-15] MEDS: ALPRAZolam 0.25 MG TABLET PO PRN (17:41)
[2017-04-15] MEDS: QUEtiapine 25 MG TABLET PO SCH (21:15)
[2017-04-15] MEDS: SODIUM CHLORIDE 0.9% 1,000 ML IV SCH (21:16)
[2017-04-15] MEDS: BUDESONIDE/FORMOTEROL 160-4.5 INHALER 6 GM INH SCH (21:16)
[2017-04-16] MEDS: LEVALBUTEROL 1.25 MG/3 ML NEB RESP TX SCH ×5 (03:42→14:11)
[2017-04-16 05:11] LABS: Basophils % 0.3 % (0.0-0.8); Eosinophils # 0.1 10*3/uL (0.0-0.87); Eosinophils % 0.6 % (0.00-10.9); Hematocrit 29.2 VOL% (35.7-47.0); Hemoglobin 8.9 GM/DL (12.0-16.0); Immature Granulocytes % 4.8 %; Immature Granulocytes Absolute 0.54 #; Lymphocytes # 0.7 10*3/uL (1.4-4.0); Mean Corpuscular HGB Conc 30.5 GM/DL (32-36); Mean Corpuscular Hemoglobin 30 PG (27-34); Mean Corpuscular Volume 99.7 FL (87-102); Mean Platelet Volume 11.1 FL (9.6-12.0); Monocytes # 0.5 10*3/uL (0.11-0.8); Monocytes % 4.8 % (1.7-12.7); NRBC # 0.03 10*3/uL; Neutrophils # 9.4 10*3/uL (1.4-7.4); Neutrophils % 83.5 % (38.7-73.9); Platelet Count 271 T/CUMM (130-400); Red Blood Count 2.93 MC/CUMM (3.8-5.5); Red Cell Distribution Width 17.2 % (9.3-17.3); White Blood Count 11.2 T/CUMM (4-12)
[2017-04-16 05:39] LABS: Band Neutrophils 1 % (0-10); Hypochromasia 1+; Lymphocytes 4 % (20-55); Macrocytosis 1+; Metamyelocytes 1 %; Segmented Neutrophils 89 % (50-85); Total Cells Counted 100
[2017-04-16 05:41] LABS: Calcium 7.5 MG/DL (8.5-10.1); Magnesium 1.6 MG/DL (1.8-2.4); Osmolality,Calculated 288.7 MOS/KG (273-304); Potassium 4.1 MMOL/L (3.5-5.1)
[2017-04-16] MEDS: METOPROLOL TARTRATE 25 MG TABLET PO SCH (08:44)
[2017-04-16] MEDS: AMIODARONE 200 MG TABLET PO SCH (08:45)
[2017-04-16] MEDS: DOCUSATE SODIUM 100 MG CAPSULE PO SCH (08:45)
[2017-04-16] MEDS: PANTOPRAZOLE 40 MG TABLET PO SCH (08:45)
[2017-04-16] MEDS: ASPIRIN CHEW 81 MG TABLET PO SCH (08:46)
[2017-04-16] MEDS: ALPRAZolam 0.25 MG TABLET PO PRN ×2 (08:46→13:39)
[2017-04-16] MEDS: predniSONE 10 MG TABLET PO SCH (08:46)
[2017-04-16] MEDS: ENOXAPARIN 40 MG/0.4 ML SYRINGE SUBCUT SCH (08:46)
[2017-04-16] MEDS: BUDESONIDE/FORMOTEROL 160-4.5 INHALER 6 GM INH SCH (08:50)
[2017-04-16] MEDS ORDERED: FUROSEMIDE 20 MG TABLET PO SCH (09:00)
[2017-04-16] MEDS ORDERED: MAGNESIUM SULF RIDER 2 GM in PREMIX 1 EACH IV PRN (12:11)
[2017-04-16] MEDS ORDERED: MAGNESIUM SULF RIDER 4 GM in PREMIX 1 EACH IV PRN (12:11)
[2017-04-16 12:19] VITALS: BP 109/71
[2017-04-16] MEDS ORDERED: MAGNESIUM OXIDE 400 MG TABLET PO ONE (12:51)
== END 2017-04-16 15:03 | DRG 197 ==
LOC: EDBD → EDUNIT# → N.ED 15:40 → N.EDINP 18:59 → N.TELES 19:45
PROVIDERS: ADMIT Internal Medicine; ATTEND Internal Medicine

== ENCOUNTER 2019-04-07 15:25 | Inpatient (IN) ==
[2019-04-07] MEDS ORDERED: ONDANSETRON 4 MG/2 ML VIAL IV PRN (15:32)
[2019-04-07] MEDS ORDERED: ACETAMINOPHEN 325 MG TABLET PO PRN (15:32)
[2019-04-07] MEDS ORDERED: ALBUTEROL 2.5 MG/3 ML NEB RESP TX PRN (16:53)
[2019-04-07] MEDS ORDERED: MELATONIN 3 MG TABLET PO PRN (16:53)
[2019-04-07] MEDS ORDERED: ALBUTEROL 1.25 MG/3 ML NEB RESP TX PRN (16:55)
[2019-04-07] MEDS ORDERED: IBANDRONATE 150 MG PO SCH (17:00)
[2019-04-07] MEDS: CITALOPRAM 20 MG TABLET PO SCH (17:25)
[2019-04-07 18:01] LABS: Basophils % 0.2 % (0.0-0.8); Hematocrit 40.7 VOL% (35.7-47.0); Hemoglobin 13.1 GM/DL (12.0-16.0); Immature Granulocytes % 4.2 %; Immature Granulocytes Absolute 0.62 #; Lymphocytes # 0.4 10*3/uL (1.4-4.0); Lymphocytes % 2.6 % (21.3-54.2); Mean Corpuscular HGB Conc 32.2 GM/DL (32-36); Mean Corpuscular Volume 97.1 FL (87-102); Mean Platelet Volume 10.5 FL (9.6-12.0); Monocytes % 2.4 % (1.7-12.7); Neutrophils % 90.6 % (38.7-73.9); Platelet Count 131 T/CUMM (130-400); Red Blood Count 4.19 MC/CUMM (3.8-5.5); Red Cell Distribution Width 15.9 % (9.3-17.3); White Blood Count 14.8 T/CUMM (4-12)
[2019-04-07 18:11] LABS: INR 1.1; PT Patient Result 11.5 SECS (9.6-12.2)
[2019-04-07 18:24] LABS: Troponin I < 0.015 NG/ML (0.00-0.045)
[2019-04-07 19:07] LABS: Albumin 2.9 G/DL (3.4-5.0); Bilirubin,Total 0.4 MG/DL (0.2-1.0); Calcium 8.6 MG/DL (8.5-10.1); Osmolality,Calculated 289.8 MOS/KG (273-304); Total Protein 5.6 G/DL (6.4-8.3)
[2019-04-07 20:52] LABS: Band Neutrophils 3 % (0-10); Lymphocytes 4 % (20-55); Platelet Estimate Normal; Segmented Neutrophils 91 % (50-85); Total Cells Counted 100
[2019-04-07] MEDS: DOCUSATE SODIUM 100 MG CAPSULE PO SCH (21:03)
[2019-04-07] MEDS: QUEtiapine 25 MG TABLET PO SCH (21:03)
[2019-04-07] MEDS: ENOXAPARIN 40 MG/0.4 ML SYRINGE SUBCUT SCH (21:03)
[2019-04-07] MEDS: METOPROLOL TARTRATE 25 MG TABLET PO SCH (21:03)
[2019-04-07] MEDS: MOMETASONE/FORMOTEROL 200-5 INHALER 8.8 GM INH SCH (21:03)
[2019-04-08 05:18] LABS: Calcium 8.3 MG/DL (8.5-10.1); Osmolality,Calculated 288.1 MOS/KG (273-304)
[2019-04-08 05:33] LABS: Troponin I < 0.015 NG/ML (0.00-0.045)
[2019-04-08] MEDS ORDERED: LORazepam 1 MG TABLET PO ONE (08:00)
[2019-04-08] MEDS ORDERED: AMIODARONE 200 MG TABLET PO SCH (09:00)
[2019-04-08] MEDS ORDERED: PANTOPRAZOLE 40 MG TABLET PO SCH (09:00)
[2019-04-08] MEDS: METOPROLOL TARTRATE 25 MG TABLET PO SCH ×2 (13:03→21:43)
[2019-04-08] MEDS: ASPIRIN EC 81 MG TABLET PO SCH (13:03)
[2019-04-08] MEDS: CHOLECALCIFEROL 1,000 UNIT TABLET PO SCH (13:03)
[2019-04-08] MEDS: POTASSIUM CHLORIDE 8 MEQ CAPSULE PO SCH (13:03)
[2019-04-08] MEDS: predniSONE 20 MG TABLET PO SCH (13:04)
[2019-04-08] MEDS: DOCUSATE SODIUM 100 MG CAPSULE PO SCH ×2 (13:04→21:43)
[2019-04-08] MEDS: FUROSEMIDE 20 MG TABLET PO SCH (13:05)
[2019-04-08] MEDS: AMIODARONE 200 MG TABLET PO SCH ×2 (13:05→21:43)
[2019-04-08] MEDS: PANTOPRAZOLE 40 MG TABLET PO SCH (13:05)
[2019-04-08] MEDS: APIXABAN 2.5 MG TABLET PO SCH ×2 (13:12→21:43)
[2019-04-08] MEDS: MOMETASONE/FORMOTEROL 200-5 INHALER 8.8 GM INH SCH ×2 (13:13→21:44)
[2019-04-08] MEDS: FLUTICASONE 50 MCG NASAL SPRAY 16 GM BOTTLE BOTH NARES SCH (13:14)
[2019-04-08] MEDS: CITALOPRAM 20 MG TABLET PO SCH (16:35)
[2019-04-08] MEDS: ENOXAPARIN 40 MG/0.4 ML SYRINGE SUBCUT SCH (21:43)
[2019-04-08] MEDS: QUEtiapine 25 MG TABLET PO SCH (21:43)
[2019-04-09 05:04] LABS: Basophils % 0.3 % (0.0-0.8); Hematocrit 37.9 VOL% (35.7-47.0); Hemoglobin 12.2 GM/DL (12.0-16.0); Immature Granulocytes % 4.8 %; Immature Granulocytes Absolute 0.62 #; Lymphocytes # 0.5 10*3/uL (1.4-4.0); Lymphocytes % 3.7 % (21.3-54.2); Mean Corpuscular HGB Conc 32.2 GM/DL (32-36); Mean Corpuscular Volume 97.2 FL (87-102); Mean Platelet Volume 10.5 FL (9.6-12.0); Neutrophils % 88.2 % (38.7-73.9); Platelet Count 145 T/CUMM (130-400); Red Cell Distribution Width 15.9 % (9.3-17.3); White Blood Count 12.8 T/CUMM (4-12)
[2019-04-09 05:34] LABS: Calcium 8.4 MG/DL (8.5-10.1); Osmolality,Calculated 286.4 MOS/KG (273-304)
[2019-04-09 05:38] LABS: Hypochromasia 1+; Lymphocytes 2 % (20-55); Segmented Neutrophils 96 % (50-85); Total Cells Counted 100
[2019-04-09] MEDS: POTASSIUM CHLORIDE 8 MEQ CAPSULE PO SCH (09:14)
[2019-04-09] MEDS: AMIODARONE 200 MG TABLET PO SCH (09:14)
[2019-04-09] MEDS: APIXABAN 2.5 MG TABLET PO SCH (09:14)
[2019-04-09] MEDS: MOMETASONE/FORMOTEROL 200-5 INHALER 8.8 GM INH SCH (09:14)
[2019-04-09] MEDS: PANTOPRAZOLE 40 MG TABLET PO SCH (09:14)
[2019-04-09] MEDS: FLUTICASONE 50 MCG NASAL SPRAY 16 GM BOTTLE BOTH NARES SCH (09:14)
[2019-04-09] MEDS: DOCUSATE SODIUM 100 MG CAPSULE PO SCH (09:14)
[2019-04-09] MEDS: CHOLECALCIFEROL 1,000 UNIT TABLET PO SCH (09:15)
[2019-04-09] MEDS: FUROSEMIDE 20 MG TABLET PO SCH (09:15)
[2019-04-09] MEDS: predniSONE 20 MG TABLET PO SCH (09:15)
[2019-04-09] MEDS: ASPIRIN EC 81 MG TABLET PO SCH (09:15)
[2019-04-09] MEDS: METOPROLOL TARTRATE 25 MG TABLET PO SCH (09:15)
[2019-04-09 11:38] VITALS: BP 136/71
== END 2019-04-09 15:31 | disposition home or self-care (01) | DRG 558 ==
LOC: INTOOBSV 16:25 → N.TELEN 16:25 → N.TELES 16:52
PROVIDERS: ADMIT Internal Medicine; ATTEND Internal Medicine

== ENCOUNTER 2019-04-13 01:04 | Inpatient (IN) ==
[2019-04-13] MEDS ORDERED: ONDANSETRON 4 MG/2 ML VIAL IV STA (02:26)
[2019-04-13 03:22] LABS: Basophils # 0.1 10*3/uL (0.0-0.2); Basophils % 0.3 % (0.0-0.8); Hematocrit 37.9 VOL% (35.7-47.0); Hemoglobin 12.2 GM/DL (12.0-16.0); Immature Granulocytes % 6.7 %; Immature Granulocytes Absolute 1.13 #; Lymphocytes # 0.6 10*3/uL (1.4-4.0); Lymphocytes % 3.3 % (21.3-54.2); Mean Corpuscular HGB Conc 32.2 GM/DL (32-36); Mean Corpuscular Volume 97.7 FL (87-102); Monocytes % 1.7 % (1.7-12.7); Platelet Count 139 T/CUMM (130-400); Red Blood Count 3.88 MC/CUMM (3.8-5.5); Red Cell Distribution Width 15.2 % (9.3-17.3); White Blood Count 16.9 T/CUMM (4-12)
[2019-04-13] MEDS ORDERED: SODIUM CHLORIDE 0.9% 1,000 ML IV SCH (03:39)
[2019-04-13] MEDS ORDERED: MORPHINE 4 MG/1 ML VIAL IV PRN ×3 (03:39→08:44)
[2019-04-13] MEDS ORDERED: ACETAMINOPHEN 325 MG TABLET PO PRN (03:39)
[2019-04-13] MEDS ORDERED: ONDANSETRON 4 MG/2 ML VIAL IV PRN (03:39)
[2019-04-13 03:44] LABS: Band Neutrophils 2 % (0-10); Lymphocytes 6 % (20-55); Segmented Neutrophils 88 % (50-85); Total Cells Counted 100
[2019-04-13 03:45] LABS: Hypochromasia 1+; Platelet Estimate Normal
[2019-04-13 03:50] LABS: Alanine Aminotransferase 67 U/L (13-56); Albumin 2.7 G/DL (3.4-5.0); Alkaline Phosphatase 128 U/L (45-117); Aspartate Amino Transferase 25 U/L (0-37); Blood Urea Nitrogen 33 MG/DL (7-18); Calcium 8.6 MG/DL (8.5-10.1); Estimated Glom Filtration Rate 63 ML/MIN; Glucose 207 MG/DL (74-106); Osmolality,Calculated 285.8 MOS/KG (273-304); Total Protein 5.8 G/DL (6.4-8.3); Troponin I < 0.015 NG/ML (0.00-0.045)
[2019-04-13 05:49] LABS: Basophils # 0.1 10*3/uL (0.0-0.2); Basophils % 0.4 % (0.0-0.8); Hematocrit 38.3 VOL% (35.7-47.0); Hemoglobin 12.5 GM/DL (12.0-16.0); Immature Granulocytes % 6.3 %; Immature Granulocytes Absolute 1.24 #; Lymphocytes # 0.7 10*3/uL (1.4-4.0); Lymphocytes % 3.6 % (21.3-54.2); Mean Corpuscular HGB Conc 32.6 GM/DL (32-36); Mean Corpuscular Volume 96.7 FL (87-102); Mean Platelet Volume 10.7 FL (9.6-12.0); Monocytes % 2.2 % (1.7-12.7); Neutrophils % 87.5 % (38.7-73.9); Platelet Count 148 T/CUMM (130-400); Red Blood Count 3.96 MC/CUMM (3.8-5.5); Red Cell Distribution Width 15.3 % (9.3-17.3); White Blood Count 19.6 T/CUMM (4-12)
[2019-04-13 06:11] LABS: Band Neutrophils 1 % (0-10); Hypochromasia 1+; Lymphocytes 3 % (20-55); Platelet Estimate Normal; Segmented Neutrophils 95 % (50-85); Total Cells Counted 100
[2019-04-13 06:26] LABS: Albumin 2.5 G/DL (3.4-5.0); Bilirubin,Total 0.9 MG/DL (0.2-1.0); Calcium 8.6 MG/DL (8.5-10.1); Osmolality,Calculated 279.2 MOS/KG (273-304); Total Protein 5.7 G/DL (6.4-8.3)
[2019-04-13] MEDS ORDERED: KETOROLAC 30 MG/1 ML VIAL IV ONE (08:44)
[2019-04-13] MEDS ORDERED: MELATONIN 3 MG TABLET PO PRN (08:45)
[2019-04-13] MEDS ORDERED: METOPROLOL TARTRATE 25 MG TABLET PO SCH (09:00)
[2019-04-13] MEDS ORDERED: DOCUSATE SODIUM 100 MG CAPSULE PO SCH (09:00)
[2019-04-13] MEDS ORDERED: predniSONE 10 MG TABLET PO SCH (09:00)
[2019-04-13] MEDS: PANTOPRAZOLE 40 MG TABLET PO SCH ×2 (09:22→09:25)
[2019-04-13] MEDS: AMIODARONE 200 MG TABLET PO SCH ×2 (09:22→21:57)
[2019-04-13] MEDS: LEVOFLOXACIN 500 MG TABLET PO SCH (09:23)
[2019-04-13] MEDS: FUROSEMIDE 20 MG TABLET PO SCH (09:23)
[2019-04-13] MEDS: POTASSIUM CHLORIDE 8 MEQ CAPSULE PO SCH (09:24)
[2019-04-13] MEDS: METOPROLOL TARTRATE 25 MG TABLET PO SCH ×2 (09:24→21:57)
[2019-04-13] MEDS: KETOROLAC 15 MG/1 ML VIAL IV SCH ×3 (09:36→21:57)
[2019-04-13] MEDS ORDERED: NON-FORMULARY MEDICATION (Levalbuterol Tartrate [Xopenex Hfa] 1 PUFF) INH PRN (10:55)
[2019-04-13] MEDS ORDERED: LEVALBUTEROL 0.63 MG/3 ML NEB RESP TX PRN (10:55)
[2019-04-13] MEDS: cefTRIAXone 1,000 MG in SYRINGE 1 EACH IV SCH (17:00)
[2019-04-13] MEDS: CITALOPRAM 20 MG TABLET PO SCH (17:02)
[2019-04-13] MEDS: MOMETASONE/FORMOTEROL 200-5 INHALER 8.8 GM INH SCH (21:57)
[2019-04-14] MEDS: KETOROLAC 15 MG/1 ML VIAL IV SCH ×4 (02:05→21:42)
[2019-04-14 05:51] LABS: Basophils # 0.1 10*3/uL (0.0-0.2); Basophils % 0.4 % (0.0-0.8); Eosinophils % 0.1 % (0.00-10.9); Hematocrit 36.1 VOL% (35.7-47.0); Hemoglobin 11.7 GM/DL (12.0-16.0); Immature Granulocytes % 6.9 %; Immature Granulocytes Absolute 1.15 #; Lymphocytes # 0.8 10*3/uL (1.4-4.0); Lymphocytes % 4.7 % (21.3-54.2); Mean Corpuscular HGB Conc 32.4 GM/DL (32-36); Mean Corpuscular Volume 97.6 FL (87-102); Mean Platelet Volume 10.7 FL (9.6-12.0); Monocytes % 5.7 % (1.7-12.7); Neutrophils % 82.2 % (38.7-73.9); Platelet Count 158 T/CUMM (130-400); Red Cell Distribution Width 15.5 % (9.3-17.3); White Blood Count 16.8 T/CUMM (4-12)
[2019-04-14 06:11] LABS: Band Neutrophils 1 % (0-10); Lymphocytes 5 % (20-55); Segmented Neutrophils 91 % (50-85); Total Cells Counted 100
[2019-04-14 06:13] LABS: Hypochromasia 1+; Platelet Estimate Adequate
[2019-04-14 06:27] LABS: Calcium 8.1 MG/DL (8.5-10.1); Osmolality,Calculated 289.5 MOS/KG (273-304)
[2019-04-14] MEDS: FLUTICASONE 50 MCG NASAL SPRAY 16 GM BOTTLE BOTH NARES SCH (09:53)
[2019-04-14] MEDS: METOPROLOL TARTRATE 25 MG TABLET PO SCH ×2 (09:54→21:43)
[2019-04-14] MEDS: LEVOFLOXACIN 500 MG TABLET PO SCH (09:54)
[2019-04-14] MEDS: FUROSEMIDE 20 MG TABLET PO SCH (09:54)
[2019-04-14] MEDS: POTASSIUM CHLORIDE 8 MEQ CAPSULE PO SCH (09:54)
[2019-04-14] MEDS: AMIODARONE 200 MG TABLET PO SCH ×2 (09:55→21:43)
[2019-04-14] MEDS: DOCUSATE SODIUM 100 MG CAPSULE PO SCH (09:55)
[2019-04-14] MEDS: PANTOPRAZOLE 40 MG TABLET PO SCH ×2 (09:55→09:57)
[2019-04-14] MEDS: MOMETASONE/FORMOTEROL 200-5 INHALER 8.8 GM INH SCH ×2 (10:02→21:43)
[2019-04-14] MEDS: predniSONE 20 MG TABLET PO SCH (10:02)
[2019-04-14] MEDS: cefTRIAXone 1,000 MG in SYRINGE 1 EACH IV SCH (16:00)
[2019-04-14] MEDS: CITALOPRAM 20 MG TABLET PO SCH (16:01)
[2019-04-15] MEDS: KETOROLAC 15 MG/1 ML VIAL IV SCH ×2 (02:59→08:34)
[2019-04-15 08:22] VITALS: BP 130/63
[2019-04-15] MEDS: MOMETASONE/FORMOTEROL 200-5 INHALER 8.8 GM INH SCH (08:36)
[2019-04-15] MEDS: FLUTICASONE 50 MCG NASAL SPRAY 16 GM BOTTLE BOTH NARES SCH (08:36)
[2019-04-15] MEDS: FUROSEMIDE 20 MG TABLET PO SCH (08:36)
[2019-04-15] MEDS: METOPROLOL TARTRATE 25 MG TABLET PO SCH (08:36)
[2019-04-15] MEDS: predniSONE 20 MG TABLET PO SCH (08:36)
[2019-04-15] MEDS: LEVOFLOXACIN 500 MG TABLET PO SCH (08:36)
[2019-04-15] MEDS: POTASSIUM CHLORIDE 8 MEQ CAPSULE PO SCH (08:36)
[2019-04-15] MEDS: AMIODARONE 200 MG TABLET PO SCH (08:36)
[2019-04-15] MEDS: DOCUSATE SODIUM 100 MG CAPSULE PO SCH (08:36)
[2019-04-15] MEDS: PANTOPRAZOLE 40 MG TABLET PO SCH ×2 (08:36→08:40)
== END 2019-04-15 10:47 | disposition home health service (06) | DRG 183 ==
LOC: N.ED 01:04 → N.EDINP 01:04 → N.3E 03:35
PROVIDERS: ADMIT Internal Medicine; ATTEND Internal Medicine

== ENCOUNTER 2019-07-27 11:08 | Inpatient (IN) ==
[2019-07-27 12:21] LABS: Basophils % 0.1 % (0.0-0.8); Eosinophils # 0.1 10*3/uL (0.0-0.87); Eosinophils % 0.4 % (0.00-10.9); Hematocrit 37.1 VOL% (35.7-47.0); Hemoglobin 11.8 GM/DL (12.0-16.0); Immature Granulocytes Absolute 0.14 #; Lymphocytes # 0.8 10*3/uL (1.4-4.0); Lymphocytes % 6.1 % (21.3-54.2); Mean Corpuscular HGB Conc 31.8 GM/DL (32-36); Mean Corpuscular Volume 94.2 FL (87-102); Mean Platelet Volume 10.7 FL (9.6-12.0); Monocytes % 8.7 % (1.7-12.7); Neutrophils % 83.7 % (38.7-73.9); Platelet Count 189 T/CUMM (130-400); Red Blood Count 3.94 MC/CUMM (3.8-5.5); Red Cell Distribution Width 14.7 % (9.3-17.3); White Blood Count 13.6 T/CUMM (4-12)
[2019-07-27 12:28] LABS: INR 1.2; PT Patient Result 12.6 SECS (9.8-11.9)
[2019-07-27 12:37] LABS: Albumin 2.8 G/DL (3.4-5.0); Bilirubin,Total 1.2 MG/DL (0.2-1.0); Calcium 8.4 MG/DL (8.5-10.1); Osmolality,Calculated 272.7 MOS/KG (273-304); Total Protein 5.4 G/DL (6.4-8.3)
[2019-07-27] MEDS ORDERED: cefTRIAXone 1,000 MG in SODIUM CHLORIDE 0.9% 100 ML IV STA (12:55)
[2019-07-27] MEDS ORDERED: AZITHROMYCIN 250 MG TABLET PO STA (12:55)
[2019-07-27] MEDS ORDERED: ONDANSETRON 4 MG/2 ML VIAL IV PRN (13:01)
[2019-07-27] MEDS: ACETAMINOPHEN 325 MG TABLET PO PRN (13:52)
[2019-07-27] MEDS ORDERED: POTASSIUM CHLORIDE RIDER 10 MEQ in PREMIX 1 EACH IV PRN (16:13)
[2019-07-27] MEDS ORDERED: MELATONIN 3 MG TABLET PO PRN (16:34)
[2019-07-27] MEDS ORDERED: LEVALBUTEROL 0.63 MG/3 ML NEB RESP TX PRN (16:34)
[2019-07-27] MEDS ORDERED: NON-FORMULARY MEDICATION (Levalbuterol Tartrate [Xopenex Hfa] 1 PUFF) INH PRN (16:34)
[2019-07-27] MEDS ORDERED: IBANDRONATE 150 MG PO SCH (16:45)
[2019-07-27] MEDS: cefTRIAXone 1,000 MG in SYRINGE 1 EACH IV SCH (17:02)
[2019-07-27] MEDS: POTASSIUM CHLORIDE 20 MEQ TABLET PO PRN ×2 (17:02→23:35)
[2019-07-27] MEDS: CITALOPRAM 20 MG TABLET PO SCH (17:02)
[2019-07-27] MEDS: AMIODARONE 200 MG TABLET PO SCH (20:41)
[2019-07-27] MEDS: APIXABAN 2.5 MG TABLET PO SCH (20:41)
[2019-07-27] MEDS: METOPROLOL TARTRATE 25 MG TABLET PO SCH (20:42)
[2019-07-27] MEDS: QUEtiapine 25 MG TABLET PO SCH (20:42)
[2019-07-27] MEDS ORDERED: DOCUSATE SODIUM 100 MG CAPSULE PO SCH (21:00)
[2019-07-27] MEDS: traZODone 50 MG TABLET PO PRN (23:35)
[2019-07-28] MEDS: ACETAMINOPHEN 325 MG TABLET PO PRN (02:31)
[2019-07-28] MEDS: POTASSIUM CHLORIDE 20 MEQ TABLET PO PRN (03:00)
[2019-07-28] MEDS ORDERED: PANTOPRAZOLE 40 MG TABLET PO SCH (09:00)
[2019-07-28] MEDS: AMIODARONE 200 MG TABLET PO SCH ×2 (09:21→21:32)
[2019-07-28] MEDS: DOCUSATE SODIUM 100 MG CAPSULE PO SCH (09:21)
[2019-07-28] MEDS: AZITHROMYCIN 250 MG TABLET PO SCH (09:21)
[2019-07-28] MEDS: APIXABAN 2.5 MG TABLET PO SCH ×2 (09:21→21:32)
[2019-07-28] MEDS: cefTRIAXone 1,000 MG in SYRINGE 1 EACH IV SCH (09:21)
[2019-07-28] MEDS: PANTOPRAZOLE 40 MG TABLET PO SCH (09:21)
[2019-07-28] MEDS: POTASSIUM CHLORIDE 8 MEQ CAPSULE PO SCH (09:21)
[2019-07-28] MEDS: ASPIRIN EC 81 MG TABLET PO SCH (09:21)
[2019-07-28] MEDS: FUROSEMIDE 20 MG TABLET PO SCH (09:21)
[2019-07-28] MEDS: METOPROLOL TARTRATE 25 MG TABLET PO SCH ×2 (09:21→21:32)
[2019-07-28] MEDS: predniSONE 10 MG TABLET PO SCH (09:21)
[2019-07-28] MEDS: CHOLECALCIFEROL 1,000 UNIT TABLET PO SCH (09:21)
[2019-07-28 16:01] LABS: Albumin 2.5 G/DL (3.4-5.0); Bilirubin,Total 0.6 MG/DL (0.2-1.0); Calcium 8.8 MG/DL (8.5-10.1); Total Protein 5.3 G/DL (6.4-8.3)
[2019-07-28] MEDS: CITALOPRAM 20 MG TABLET PO SCH (17:38)
[2019-07-28] MEDS: QUEtiapine 25 MG TABLET PO SCH (21:32)
[2019-07-28] MEDS: traZODone 50 MG TABLET PO PRN (21:32)
[2019-07-29 03:43] LABS: Basophils % 0.1 % (0.0-0.8); Eosinophils # 0.1 10*3/uL (0.0-0.87); Eosinophils % 1.2 % (0.00-10.9); Hematocrit 33.8 VOL% (35.7-47.0); Immature Granulocytes % 0.8 %; Lymphocytes % 8.3 % (21.3-54.2); Mean Corpuscular HGB Conc 29.6 GM/DL (32-36); Mean Corpuscular Volume 99.4 FL (87-102); Monocytes % 9.8 % (1.7-12.7); Neutrophils % 79.8 % (38.7-73.9); Platelet Count 179 T/CUMM (130-400); White Blood Count 12.2 T/CUMM (4-12)
[2019-07-29 03:56] LABS: Albumin 2.4 G/DL (3.4-5.0); Bilirubin,Total 1.4 MG/DL (0.2-1.0); Calcium 8.2 MG/DL (8.5-10.1); Osmolality,Calculated 278.4 MOS/KG (273-304); Total Protein 5.5 G/DL (6.4-8.3)
[2019-07-29] MEDS: DOCUSATE SODIUM 100 MG CAPSULE PO SCH (09:03)
[2019-07-29] MEDS: ASPIRIN EC 81 MG TABLET PO SCH (09:03)
[2019-07-29] MEDS: APIXABAN 2.5 MG TABLET PO SCH ×2 (09:03→21:15)
[2019-07-29] MEDS: AMIODARONE 200 MG TABLET PO SCH ×2 (09:03→21:15)
[2019-07-29] MEDS: FUROSEMIDE 20 MG TABLET PO SCH (09:03)
[2019-07-29] MEDS: predniSONE 10 MG TABLET PO SCH (09:04)
[2019-07-29] MEDS: CHOLECALCIFEROL 1,000 UNIT TABLET PO SCH (09:04)
[2019-07-29] MEDS: AZITHROMYCIN 250 MG TABLET PO SCH (09:04)
[2019-07-29] MEDS: PANTOPRAZOLE 40 MG TABLET PO SCH (09:04)
[2019-07-29] MEDS: POTASSIUM CHLORIDE 8 MEQ CAPSULE PO SCH (09:04)
[2019-07-29] MEDS: METOPROLOL TARTRATE 25 MG TABLET PO SCH ×2 (09:04→21:15)
[2019-07-29] MEDS: cefTRIAXone 1,000 MG in SYRINGE 1 EACH IV SCH (09:04)
[2019-07-29] MEDS: LEVALBUTEROL TARTRATE INH SCH ×3 (10:31→21:15)
[2019-07-29] MEDS: CITALOPRAM 20 MG TABLET PO SCH (17:24)
[2019-07-29] MEDS: QUEtiapine 25 MG TABLET PO SCH (21:15)
[2019-07-29] MEDS: traZODone 50 MG TABLET PO PRN (21:15)
[2019-07-30 06:44] LABS: Basophils % 0.2 % (0.0-0.8); Eosinophils # 0.2 10*3/uL (0.0-0.87); Eosinophils % 1.6 % (0.00-10.9); Hematocrit 34.1 VOL% (35.7-47.0); Hemoglobin 10.3 GM/DL (12.0-16.0); Immature Granulocytes % 0.7 %; Immature Granulocytes Absolute 0.08 #; Lymphocytes # 1.1 10*3/uL (1.4-4.0); Mean Corpuscular HGB Conc 30.2 GM/DL (32-36); Mean Corpuscular Volume 99.1 FL (87-102); Mean Platelet Volume 10.9 FL (9.6-12.0); Monocytes % 8.9 % (1.7-12.7); Neutrophils % 78.6 % (38.7-73.9); Platelet Count 176 T/CUMM (130-400); Red Blood Count 3.44 MC/CUMM (3.8-5.5); Red Cell Distribution Width 14.8 % (9.3-17.3); White Blood Count 10.8 T/CUMM (4-12)
[2019-07-30 07:13] LABS: Calcium 8.4 MG/DL (8.5-10.1); Osmolality,Calculated 280.4 MOS/KG (273-304)
[2019-07-30] MEDS: DOCUSATE SODIUM 100 MG CAPSULE PO SCH (08:20)
[2019-07-30] MEDS: cefTRIAXone 1,000 MG in SYRINGE 1 EACH IV SCH (08:20)
[2019-07-30] MEDS: predniSONE 10 MG TABLET PO SCH (08:21)
[2019-07-30] MEDS: POTASSIUM CHLORIDE 8 MEQ CAPSULE PO SCH (08:21)
[2019-07-30] MEDS: FUROSEMIDE 20 MG TABLET PO SCH (08:21)
[2019-07-30] MEDS: CHOLECALCIFEROL 1,000 UNIT TABLET PO SCH (08:21)
[2019-07-30] MEDS: PANTOPRAZOLE 40 MG TABLET PO SCH (08:21)
[2019-07-30] MEDS: ASPIRIN EC 81 MG TABLET PO SCH (08:21)
[2019-07-30] MEDS: AMIODARONE 200 MG TABLET PO SCH ×2 (08:21→20:28)
[2019-07-30] MEDS: METOPROLOL TARTRATE 25 MG TABLET PO SCH ×2 (08:22→20:28)
[2019-07-30] MEDS: AZITHROMYCIN 250 MG TABLET PO SCH (08:22)
[2019-07-30] MEDS: APIXABAN 2.5 MG TABLET PO SCH ×2 (08:22→20:28)
[2019-07-30] MEDS: LEVALBUTEROL TARTRATE INH SCH ×3 (08:23→20:30)
[2019-07-30] MEDS: CITALOPRAM 20 MG TABLET PO SCH (18:19)
[2019-07-30] MEDS: QUEtiapine 25 MG TABLET PO SCH (20:28)
[2019-07-30] MEDS: traZODone 50 MG TABLET PO PRN (22:34)
[2019-07-31 05:39] LABS: Basophils % 0.3 % (0.0-0.8); Eosinophils # 0.1 10*3/uL (0.0-0.87); Eosinophils % 1.4 % (0.00-10.9); Hematocrit 32.4 VOL% (35.7-47.0); Hemoglobin 9.7 GM/DL (12.0-16.0); Immature Granulocytes % 0.7 %; Immature Granulocytes Absolute 0.07 #; Lymphocytes % 10.5 % (21.3-54.2); Mean Corpuscular HGB Conc 29.9 GM/DL (32-36); Mean Corpuscular Volume 99.7 FL (87-102); Mean Platelet Volume 10.6 FL (9.6-12.0); Monocytes % 9.2 % (1.7-12.7); Neutrophils % 77.9 % (38.7-73.9); Platelet Count 192 T/CUMM (130-400); Red Blood Count 3.25 MC/CUMM (3.8-5.5); Red Cell Distribution Width 14.7 % (9.3-17.3); White Blood Count 9.9 T/CUMM (4-12)
[2019-07-31] MEDS: cefTRIAXone 1,000 MG in SYRINGE 1 EACH IV SCH (08:29)
[2019-07-31] MEDS: CHOLECALCIFEROL 1,000 UNIT TABLET PO SCH (08:30)
[2019-07-31] MEDS: AZITHROMYCIN 250 MG TABLET PO SCH (08:30)
[2019-07-31] MEDS: AMIODARONE 200 MG TABLET PO SCH (08:30)
[2019-07-31] MEDS: METOPROLOL TARTRATE 25 MG TABLET PO SCH (08:30)
[2019-07-31] MEDS: DOCUSATE SODIUM 100 MG CAPSULE PO SCH (08:30)
[2019-07-31] MEDS: FUROSEMIDE 20 MG TABLET PO SCH (08:31)
[2019-07-31] MEDS: PANTOPRAZOLE 40 MG TABLET PO SCH (08:31)
[2019-07-31] MEDS: APIXABAN 2.5 MG TABLET PO SCH (08:31)
[2019-07-31] MEDS: ASPIRIN EC 81 MG TABLET PO SCH (08:31)
[2019-07-31] MEDS: predniSONE 10 MG TABLET PO SCH (08:31)
[2019-07-31] MEDS: LEVALBUTEROL TARTRATE INH SCH (09:00)
[2019-07-31] MEDS: POTASSIUM CHLORIDE 8 MEQ CAPSULE PO SCH (09:01)
[2019-07-31 11:15] VITALS: BP 100/54
== END 2019-07-31 12:00 | disposition home or self-care (01) | DRG 194 ==
LOC: EDUNIT# → EDBD → N.ED 11:08 → N.EDINP 12:58 → N.2W 15:40
PROVIDERS: ADMIT Internal Medicine; ATTEND Internal Medicine

== ENCOUNTER 2019-08-09 12:21 | Inpatient (IN) ==
[2019-08-09 14:23] LABS: Basophils % 0.3 % (0.0-0.8); Eosinophils % 0.1 % (0.00-10.9); Hematocrit 41.1 VOL% (35.7-47.0); Hemoglobin 12.4 GM/DL (12.0-16.0); Immature Granulocytes % 1.4 %; Immature Granulocytes Absolute 0.15 #; Lymphocytes # 0.6 10*3/uL (1.4-4.0); Lymphocytes % 5.2 % (21.3-54.2); Mean Corpuscular HGB Conc 30.2 GM/DL (32-36); Mean Corpuscular Volume 97.4 FL (87-102); Mean Platelet Volume 10.3 FL (9.6-12.0); Monocytes % 2.1 % (1.7-12.7); Neutrophils % 90.9 % (38.7-73.9); Platelet Count 328 T/CUMM (130-400); Red Blood Count 4.22 MC/CUMM (3.8-5.5); Red Cell Distribution Width 15.4 % (9.3-17.3)
[2019-08-09 14:40] LABS: Albumin 3.2 G/DL (3.4-5.0); Bilirubin,Total 0.4 MG/DL (0.2-1.0); Calcium 8.5 MG/DL (8.5-10.1); Osmolality,Calculated 280.5 MOS/KG (273-304); Total Protein 6.3 G/DL (6.4-8.3)
[2019-08-09 14:44] LABS: Eosinophils 1 % (0-10); Lymphocytes 6 % (20-55); Platelet Estimate Adequate; Segmented Neutrophils 90 % (50-85); Total Cells Counted 100
[2019-08-09] MEDS ORDERED: ONDANSETRON 4 MG/2 ML VIAL IV PRN (15:47)
[2019-08-09] MEDS ORDERED: ACETAMINOPHEN 325 MG TABLET PO PRN (15:47)
[2019-08-09] MEDS: SODIUM CHLORIDE 0.9% 1,000 ML IV SCH (17:12)
[2019-08-09] MEDS ORDERED: traZODone 50 MG TABLET PO PRN (20:31)
[2019-08-09] MEDS: DOCUSATE SODIUM 100 MG CAPSULE PO SCH (21:52)
[2019-08-09] MEDS: FUROSEMIDE 40 MG/4 ML VIAL IV SCH (21:52)
[2019-08-09] MEDS: AMIODARONE 200 MG TABLET PO SCH (21:52)
[2019-08-09] MEDS: APIXABAN 2.5 MG TABLET PO SCH (21:52)
[2019-08-09] MEDS: METOPROLOL TARTRATE 25 MG TABLET PO SCH (21:52)
[2019-08-10 08:16] LABS: Calcium 8.6 MG/DL (8.5-10.1); Osmolality,Calculated 275.5 MOS/KG (273-304)
[2019-08-10] MEDS ORDERED: POTASSIUM CHLORIDE 8 MEQ CAPSULE PO SCH (09:00)
[2019-08-10] MEDS ORDERED: predniSONE 10 MG TABLET PO SCH (09:00)
[2019-08-10] MEDS ORDERED: LEVALBUTEROL 0.63 MG/3 ML NEB RESP TX PRN (09:14)
[2019-08-10] MEDS: APIXABAN 2.5 MG TABLET PO SCH ×2 (09:20→21:28)
[2019-08-10] MEDS: DOCUSATE SODIUM 100 MG CAPSULE PO SCH ×2 (09:20→21:28)
[2019-08-10] MEDS: ASPIRIN EC 81 MG TABLET PO SCH (09:20)
[2019-08-10] MEDS: CHOLECALCIFEROL 1,000 UNIT TABLET PO SCH (09:20)
[2019-08-10] MEDS: METOPROLOL TARTRATE 25 MG TABLET PO SCH ×2 (09:21→21:28)
[2019-08-10] MEDS: PANTOPRAZOLE 40 MG TABLET PO SCH (09:21)
[2019-08-10] MEDS: FUROSEMIDE 40 MG/4 ML VIAL IV SCH ×2 (09:21→21:29)
[2019-08-10] MEDS: AMIODARONE 200 MG TABLET PO SCH ×2 (09:21→21:28)
[2019-08-10] MEDS: LEVALBUTEROL 1.25 MG/3 ML NEB RESP TX PRN ×2 (12:19→16:55)
[2019-08-10] MEDS: SODIUM CHLORIDE 0.9% 1,000 ML IV SCH (15:48)
[2019-08-10] MEDS: CITALOPRAM 20 MG TABLET PO SCH (16:25)
[2019-08-10] MEDS: MELATONIN 3 MG TABLET PO PRN (21:28)
[2019-08-11 06:34] LABS: Basophils % 0.3 % (0.0-0.8); Eosinophils # 0.2 10*3/uL (0.0-0.87); Eosinophils % 1.5 % (0.00-10.9); Hematocrit 36.6 VOL% (35.7-47.0); Hemoglobin 11.3 GM/DL (12.0-16.0); Immature Granulocytes % 1.1 %; Immature Granulocytes Absolute 0.13 #; Lymphocytes # 1.4 10*3/uL (1.4-4.0); Lymphocytes % 11.8 % (21.3-54.2); Mean Corpuscular HGB Conc 30.9 GM/DL (32-36); Mean Corpuscular Volume 94.8 FL (87-102); Mean Platelet Volume 10.5 FL (9.6-12.0); Monocytes % 10.9 % (1.7-12.7); Neutrophils % 74.4 % (38.7-73.9); Platelet Count 292 T/CUMM (130-400); Red Blood Count 3.86 MC/CUMM (3.8-5.5); Red Cell Distribution Width 15.4 % (9.3-17.3); White Blood Count 11.4 T/CUMM (4-12)
[2019-08-11 06:45] LABS: Calcium 8.3 MG/DL (8.5-10.1); Osmolality,Calculated 272.8 MOS/KG (273-304)
[2019-08-11] MEDS ORDERED: POTASSIUM CHLORIDE 20 MEQ TABLET PO ONE (08:36)
[2019-08-11] MEDS: METOPROLOL TARTRATE 25 MG TABLET PO SCH ×2 (09:49→21:17)
[2019-08-11] MEDS: DOCUSATE SODIUM 100 MG CAPSULE PO SCH ×2 (09:49→21:17)
[2019-08-11] MEDS: PANTOPRAZOLE 40 MG TABLET PO SCH (09:49)
[2019-08-11] MEDS: LEVOFLOXACIN 500 MG TABLET PO SCH (09:49)
[2019-08-11] MEDS: methylPREDNISolone SOD SUC 40 MG/1 ML VIAL IV SCH ×2 (09:50→16:54)
[2019-08-11] MEDS: ASPIRIN EC 81 MG TABLET PO SCH (09:50)
[2019-08-11] MEDS: FUROSEMIDE 40 MG/4 ML VIAL IV SCH (09:50)
[2019-08-11] MEDS: APIXABAN 2.5 MG TABLET PO SCH ×2 (09:50→21:17)
[2019-08-11] MEDS: CHOLECALCIFEROL 1,000 UNIT TABLET PO SCH (09:50)
[2019-08-11] MEDS: AMIODARONE 200 MG TABLET PO SCH ×2 (09:54→21:17)
[2019-08-11] MEDS: POTASSIUM CHLORIDE 20 MEQ TABLET PO PRN ×2 (13:03→16:54)
[2019-08-11] MEDS: LEVALBUTEROL 1.25 MG/3 ML NEB RESP TX PRN ×2 (13:56→20:08)
[2019-08-11] MEDS: SODIUM CHLORIDE 0.9% 1,000 ML IV SCH (15:31)
[2019-08-11] MEDS: CITALOPRAM 20 MG TABLET PO SCH (16:53)
[2019-08-12] MEDS: methylPREDNISolone SOD SUC 40 MG/1 ML VIAL IV SCH (00:23)
[2019-08-12] MEDS: MELATONIN 3 MG TABLET PO PRN (00:23)
[2019-08-12 06:34] LABS: Calcium 8.8 MG/DL (8.5-10.1)
[2019-08-12] MEDS ORDERED: POTASSIUM CHLORIDE 20 MEQ TABLET PO SCH (09:00)
[2019-08-12] MEDS: FUROSEMIDE 40 MG/4 ML VIAL IV SCH (09:24)
[2019-08-12] MEDS: ASPIRIN EC 81 MG TABLET PO SCH (09:25)
[2019-08-12] MEDS: CHOLECALCIFEROL 1,000 UNIT TABLET PO SCH (09:25)
[2019-08-12] MEDS: DOCUSATE SODIUM 100 MG CAPSULE PO SCH ×2 (09:25→21:01)
[2019-08-12] MEDS: LEVOFLOXACIN 500 MG TABLET PO SCH (09:25)
[2019-08-12] MEDS: APIXABAN 2.5 MG TABLET PO SCH ×2 (09:26→21:01)
[2019-08-12] MEDS: AMIODARONE 200 MG TABLET PO SCH ×2 (09:26→21:01)
[2019-08-12] MEDS: METOPROLOL TARTRATE 25 MG TABLET PO SCH ×2 (09:26→21:00)
[2019-08-12] MEDS: PANTOPRAZOLE 40 MG TABLET PO SCH (09:26)
[2019-08-12] MEDS: predniSONE 20 MG TABLET PO SCH (12:19)
[2019-08-12] MEDS: LEVALBUTEROL 1.25 MG/3 ML NEB RESP TX PRN ×3 (13:22→22:51)
[2019-08-12] MEDS: SODIUM CHLORIDE 0.9% 1,000 ML IV SCH (17:07)
[2019-08-12] MEDS: CITALOPRAM 20 MG TABLET PO SCH (17:27)
[2019-08-12] MEDS ORDERED: ZALEPLON 5 MG CAPSULE PO PRN (18:51)
[2019-08-13] MEDS: LEVALBUTEROL 1.25 MG/3 ML NEB RESP TX PRN ×2 (03:05→10:25)
[2019-08-13 06:15] LABS: Calcium 8.7 MG/DL (8.5-10.1); Osmolality,Calculated 277.7 MOS/KG (273-304)
[2019-08-13 08:03] VITALS: BP 123/66
[2019-08-13] MEDS: DOCUSATE SODIUM 100 MG CAPSULE PO SCH (08:11)
[2019-08-13] MEDS: LEVOFLOXACIN 500 MG TABLET PO SCH (08:11)
[2019-08-13] MEDS: ASPIRIN EC 81 MG TABLET PO SCH (08:11)
[2019-08-13] MEDS: CHOLECALCIFEROL 1,000 UNIT TABLET PO SCH (08:11)
[2019-08-13] MEDS: METOPROLOL TARTRATE 25 MG TABLET PO SCH (08:11)
[2019-08-13] MEDS: predniSONE 20 MG TABLET PO SCH (08:11)
[2019-08-13] MEDS: FUROSEMIDE 40 MG/4 ML VIAL IV SCH (08:12)
[2019-08-13] MEDS: PANTOPRAZOLE 40 MG TABLET PO SCH (08:12)
[2019-08-13] MEDS: AMIODARONE 200 MG TABLET PO SCH (08:12)
[2019-08-13] MEDS: APIXABAN 2.5 MG TABLET PO SCH (08:12)
== END 2019-08-13 11:24 | disposition home or self-care (01) | DRG 196 ==
LOC: N.EDINP 12:21 → N.ED 12:21 → N.TELEN 16:03
PROVIDERS: ADMIT Internal Medicine; ATTEND Internal Medicine

== ENCOUNTER 2020-07-24 21:15 | Inpatient (IN) ==
[2020-07-24] MEDS ORDERED: ALBUTEROL/IPRATROPIUM 3 ML NEB RESP TX STA (21:37)
[2020-07-24] MEDS ORDERED: methylPREDNISolone SOD SUC 125 MG/2 ML VIAL IV STA (21:37)
[2020-07-24 21:48] LABS: Basophils % 0.1 % (0.0-0.8); Hematocrit 33.9 VOL% (35.7-47.0); Hemoglobin 10.8 GM/DL (12.0-16.0); Immature Granulocytes % 1.1 %; Immature Granulocytes Absolute 0.13 #; Lymphocytes # 1.2 10*3/uL (1.4-4.0); Lymphocytes % 10.1 % (21.3-54.2); Mean Corpuscular HGB Conc 31.9 GM/DL (32-36); Mean Corpuscular Volume 97.1 FL (87-102); Mean Platelet Volume 10.6 FL (9.6-12.0); Neutrophils % 82.7 % (38.7-73.9); Platelet Count 196 T/CUMM (130-400); Red Blood Count 3.49 MC/CUMM (3.8-5.5); Red Cell Distribution Width 16.3 % (9.3-17.3); White Blood Count 11.4 T/CUMM (4-12)
[2020-07-24 21:55] LABS: INR 1.1; PT Patient Result 12.6 SECS (10.5-12.0)
[2020-07-24 22:00] LABS: Alanine Aminotransferase 50 U/L (13-56); Albumin 3.3 G/DL (3.4-5.0); Alkaline Phosphatase 79 U/L (45-117); Aspartate Amino Transferase 28 U/L (0-37); Bilirubin,Total < 0.39 MG/DL (0.2-1.0); Blood Urea Nitrogen 26 MG/DL (7-18); Carbon Dioxide 26 MMOL/L (21-32); Estimated Glom Filtration Rate 46 ML/MIN; Glucose 152 MG/DL (74-106); Osmolality,Calculated 293.8 MOS/KG (273-304); Sodium 144 MMOL/L (136-145); Total Protein 5.6 G/DL (6.4-8.2)
[2020-07-24 22:19] LABS: ABG Base Excess 2.5 MMOL/L (-2.5-2.5); ABG HCO3 26.2 MMOL/L (20-26); ABG Oxygen Saturation 71.1 % (95-100); ABG PCO2 55.4 MM HG (35-48); ABG PH 7.334 (7.35-7.45); ABG PO2 42.6 MM HG (80-95); ABG TCO2 26.9 MMOL/L (23-27)
[2020-07-24] MEDS ORDERED: SODIUM CHLORIDE 0.9% 1,000 ML IV STA (22:56)
[2020-07-25] MEDS ORDERED: ONDANSETRON 4 MG/2 ML VIAL IV PRN (00:04)
[2020-07-25 01:45] LABS: Basophils % 0.1 % (0.0-0.8); Hematocrit 31.6 VOL% (35.7-47.0); Hemoglobin 9.9 GM/DL (12.0-16.0); Immature Granulocytes % 1.2 %; Lymphocytes # 0.2 10*3/uL (1.4-4.0); Lymphocytes % 2.8 % (21.3-54.2); Mean Corpuscular HGB Conc 31.3 GM/DL (32-36); Mean Corpuscular Volume 97.5 FL (87-102); Mean Platelet Volume 10.4 FL (9.6-12.0); Monocytes % 1.3 % (1.7-12.7); Neutrophils % 94.6 % (38.7-73.9); Platelet Count 171 T/CUMM (130-400); Red Blood Count 3.24 MC/CUMM (3.8-5.5); Red Cell Distribution Width 16.2 % (9.3-17.3); White Blood Count 8.2 T/CUMM (4-12)
[2020-07-25 02:03] LABS: Albumin 3.9 G/DL (3.4-5.0); Bilirubin,Total 0.7 MG/DL (0.2-1.0); Calcium 9.3 MG/DL (8.5-10.1); Potassium 3.4 MMOL/L (3.5-5.1); Total Protein 8.1 G/DL (6.4-8.2)
[2020-07-25] MEDS: LEVOFLOXACIN INJ 500 MG/100 ML PREMIX IV SCH (02:27)
[2020-07-25 02:31] LABS: Lymphocytes 4 % (20-55); Segmented Neutrophils 94 % (50-85); Total Cells Counted 100
[2020-07-25 02:32] LABS: Platelet Estimate Normal
[2020-07-25 02:41] LABS: Polychromasia Few
[2020-07-25 02:42] LABS: Stomatocytes Slight
[2020-07-25] MEDS: methylPREDNISolone SOD SUC 40 MG/1 ML VIAL IV SCH ×3 (04:32→21:25)
[2020-07-25] MEDS: PANTOPRAZOLE 40 MG VIAL IV SCH (08:27)
[2020-07-25] MEDS ORDERED: GLUCAGON 1 MG VIAL IM PRN (08:52)
[2020-07-25] MEDS ORDERED: DEXTROSE 50% 25 GM/50 ML VIAL IV PRN (08:52)
[2020-07-25] MEDS: metFORMIN 500 MG TABLET PO SCH ×2 (10:55→21:25)
[2020-07-25] MEDS: DOCUSATE SODIUM 100 MG CAPSULE PO SCH (10:55)
[2020-07-25] MEDS: METOPROLOL TARTRATE 25 MG TABLET PO SCH ×2 (10:55→21:26)
[2020-07-25] MEDS: ASPIRIN EC 81 MG TABLET PO SCH (10:55)
[2020-07-25] MEDS: FUROSEMIDE 20 MG TABLET PO SCH (10:55)
[2020-07-25] MEDS: POTASSIUM CHLORIDE 8 MEQ CAPSULE PO SCH ×2 (10:55→21:24)
[2020-07-25] MEDS: APIXABAN 2.5 MG TABLET PO SCH ×2 (10:55→21:25)
[2020-07-25] MEDS: INSULIN LISPRO 100 UNIT/ML SUBCUT SCH ×2 (12:38→17:58)
[2020-07-25] MEDS: QUEtiapine 25 MG TABLET PO SCH (21:24)
[2020-07-26] MEDS: LEVOFLOXACIN INJ 500 MG/100 ML PREMIX IV SCH (01:11)
[2020-07-26] MEDS: methylPREDNISolone SOD SUC 40 MG/1 ML VIAL IV SCH ×3 (04:37→21:24)
[2020-07-26 05:48] LABS: Basophils % 0.2 % (0.0-0.8); Hematocrit 31.9 VOL% (35.7-47.0); Hemoglobin 9.9 GM/DL (12.0-16.0); Immature Granulocytes % 1.9 %; Immature Granulocytes Absolute 0.23 #; Lymphocytes # 0.6 10*3/uL (1.4-4.0); Mean Platelet Volume 10.6 FL (9.6-12.0); Monocytes % 2.3 % (1.7-12.7); Neutrophils % 90.6 % (38.7-73.9); Platelet Count 183 T/CUMM (130-400); Red Blood Count 3.19 MC/CUMM (3.8-5.5); Red Cell Distribution Width 16.2 % (9.3-17.3)
[2020-07-26 06:10] LABS: Calcium 7.8 MG/DL (8.5-10.1); Osmolality,Calculated 286.4 MOS/KG (273-304); Potassium 4.1 MMOL/L (3.5-5.1)
[2020-07-26 06:15] LABS: Anisocytosis 1+; Hypochromasia 1+; Lymphocytes 3 % (20-55); Microcytosis 1+; Segmented Neutrophils 95 % (50-85); Total Cells Counted 100
[2020-07-26 06:16] LABS: Platelet Estimate Adequate
[2020-07-26] MEDS: INSULIN LISPRO 100 UNIT/ML SUBCUT SCH ×3 (07:48→16:09)
[2020-07-26] MEDS: metFORMIN 500 MG TABLET PO SCH ×2 (09:12→21:24)
[2020-07-26] MEDS: ASPIRIN EC 81 MG TABLET PO SCH (09:12)
[2020-07-26] MEDS: DOCUSATE SODIUM 100 MG CAPSULE PO SCH (09:12)
[2020-07-26] MEDS: FUROSEMIDE 20 MG TABLET PO SCH (09:13)
[2020-07-26] MEDS: POTASSIUM CHLORIDE 8 MEQ CAPSULE PO SCH ×2 (09:15→21:24)
[2020-07-26] MEDS: METOPROLOL TARTRATE 25 MG TABLET PO SCH ×2 (09:15→21:25)
[2020-07-26] MEDS: PANTOPRAZOLE 40 MG VIAL IV SCH (09:19)
[2020-07-26] MEDS: APIXABAN 2.5 MG TABLET PO SCH ×2 (10:10→21:24)
[2020-07-26] MEDS ORDERED: FUROSEMIDE 40 MG/4 ML VIAL IV ONE (15:37)
[2020-07-26] MEDS: ALBUTEROL/IPRATROPIUM 3 ML NEB RESP TX PRN (16:28)
[2020-07-26] MEDS: QUEtiapine 25 MG TABLET PO SCH (21:24)
[2020-07-26] MEDS: ACETAMINOPHEN 325 MG TABLET PO PRN (21:29)
[2020-07-27] MEDS: LEVOFLOXACIN INJ 500 MG/100 ML PREMIX IV SCH (00:08)
[2020-07-27] MEDS: ALBUTEROL/IPRATROPIUM 3 ML NEB RESP TX PRN (00:35)
[2020-07-27] MEDS: methylPREDNISolone SOD SUC 40 MG/1 ML VIAL IV SCH ×2 (04:30→16:12)
[2020-07-27] MEDS: ALBUTEROL/IPRATROPIUM 3 ML NEB RESP TX SCH ×3 (07:35→19:48)
[2020-07-27] MEDS: INSULIN LISPRO 100 UNIT/ML SUBCUT SCH ×3 (07:38→16:13)
[2020-07-27] MEDS: POTASSIUM CHLORIDE 8 MEQ CAPSULE PO SCH ×2 (08:35→21:42)
[2020-07-27] MEDS: APIXABAN 2.5 MG TABLET PO SCH ×2 (08:36→21:42)
[2020-07-27] MEDS: DOCUSATE SODIUM 100 MG CAPSULE PO SCH (08:37)
[2020-07-27] MEDS: ASPIRIN EC 81 MG TABLET PO SCH (08:37)
[2020-07-27] MEDS: metFORMIN 500 MG TABLET PO SCH ×2 (08:37→21:42)
[2020-07-27] MEDS: FUROSEMIDE 20 MG TABLET PO SCH (08:38)
[2020-07-27] MEDS: PANTOPRAZOLE 40 MG VIAL IV SCH (08:42)
[2020-07-27] MEDS: METOPROLOL TARTRATE 25 MG TABLET PO SCH ×2 (08:42→21:42)
[2020-07-27 14:30] LABS: Bacteria,Urine Occasional /HPF (Few); Bilirubin,Urine Negative (Negative); Blood, Urine Negative (Negative); Glucose,Urine (UA) >=500 mg/dL (Negative); Ketones,Urine Negative (Negative); Nitrite,Urine Negative (Negative); Protein,Urine Negative; RBC,Urine 1 /HPF (0-4); Squamous Epithelial Cell,Urine Occasional /HPF (0-10); Urine Appearance CLEAR (Clear); Urine Color Straw (Yellow); Urine Specific Gravity 1.008 (1.001-1.035); Urine Urobilinogen < 2.0 EU/DL (0.2-1.0)
[2020-07-27] MEDS: ACETAMINOPHEN 325 MG TABLET PO PRN (21:41)
[2020-07-27] MEDS: QUEtiapine 25 MG TABLET PO SCH (21:42)
[2020-07-28] MEDS: LEVOFLOXACIN INJ 500 MG/100 ML PREMIX IV SCH
[2020-07-28 05:04] LABS: Basophils # 0.1 10*3/uL (0.0-0.2); Basophils % 0.4 % (0.0-0.8); Hematocrit 34.5 VOL% (35.7-47.0); Hemoglobin 10.4 GM/DL (12.0-16.0); Immature Granulocytes % 5.5 %; Immature Granulocytes Absolute 0.75 #; Lymphocytes # 0.5 10*3/uL (1.4-4.0); Lymphocytes % 3.7 % (21.3-54.2); Mean Corpuscular HGB Conc 30.1 GM/DL (32-36); Mean Corpuscular Volume 101.5 FL (87-102); Mean Platelet Volume 10.4 FL (9.6-12.0); NRBC # 0.05 10*3/uL; Neutrophils % 84.4 % (38.7-73.9); Platelet Count 212 T/CUMM (130-400); Red Cell Distribution Width 15.9 % (9.3-17.3); White Blood Count 13.7 T/CUMM (4-12)
[2020-07-28] MEDS: methylPREDNISolone SOD SUC 40 MG/1 ML VIAL IV SCH ×3 (05:09→21:09)
[2020-07-28 05:25] LABS: Calcium 8.2 MG/DL (8.5-10.1); Osmolality,Calculated 290.1 MOS/KG (273-304); Potassium 4.2 MMOL/L (3.5-5.1)
[2020-07-28 05:28] LABS: Hypochromasia 1+; Lymphocytes 6 % (20-55); Microcytosis 1+; Nucleated Red Blood Cells 2 (0-5); Platelet Estimate Adequate; Segmented Neutrophils 89 % (50-85); Total Cells Counted 100
[2020-07-28] MEDS: INSULIN LISPRO 100 UNIT/ML SUBCUT SCH ×3 (07:53→17:03)
[2020-07-28] MEDS: ALBUTEROL/IPRATROPIUM 3 ML NEB RESP TX SCH ×3 (08:05→19:25)
[2020-07-28] MEDS: APIXABAN 2.5 MG TABLET PO SCH ×2 (09:55→21:08)
[2020-07-28] MEDS: FUROSEMIDE 20 MG TABLET PO SCH (09:55)
[2020-07-28] MEDS: ASPIRIN EC 81 MG TABLET PO SCH (09:55)
[2020-07-28] MEDS: POTASSIUM CHLORIDE 8 MEQ CAPSULE PO SCH ×2 (09:55→21:08)
[2020-07-28] MEDS: metFORMIN 500 MG TABLET PO SCH ×2 (09:56→21:08)
[2020-07-28] MEDS: DOCUSATE SODIUM 100 MG CAPSULE PO SCH ×2 (09:56→10:36)
[2020-07-28] MEDS: METOPROLOL TARTRATE 25 MG TABLET PO SCH ×2 (09:56→21:08)
[2020-07-28] MEDS: PANTOPRAZOLE 40 MG VIAL IV SCH (09:56)
[2020-07-28] MEDS: ACETAMINOPHEN 325 MG TABLET PO PRN ×2 (13:31→21:09)
[2020-07-28] MEDS ORDERED: methylPREDNISolone SOD SUC 40 MG/1 ML VIAL IV SCH (18:00)
[2020-07-28] MEDS: QUEtiapine 25 MG TABLET PO SCH (21:08)
[2020-07-29] MEDS: LEVOFLOXACIN INJ 500 MG/100 ML PREMIX IV SCH ×2 (00:23→23:32)
[2020-07-29] MEDS: methylPREDNISolone SOD SUC 40 MG/1 ML VIAL IV SCH ×3 (04:20→20:10)
[2020-07-29] MEDS: ALBUTEROL/IPRATROPIUM 3 ML NEB RESP TX SCH ×3 (07:30→19:27)
[2020-07-29] MEDS: POTASSIUM CHLORIDE 8 MEQ CAPSULE PO SCH ×2 (08:46→20:14)
[2020-07-29] MEDS: APIXABAN 2.5 MG TABLET PO SCH ×2 (08:46→20:13)
[2020-07-29] MEDS: INSULIN LISPRO 100 UNIT/ML SUBCUT SCH ×3 (08:46→17:34)
[2020-07-29] MEDS: METOPROLOL TARTRATE 25 MG TABLET PO SCH ×2 (08:46→20:13)
[2020-07-29] MEDS: FUROSEMIDE 20 MG TABLET PO SCH (08:47)
[2020-07-29] MEDS: ASPIRIN EC 81 MG TABLET PO SCH (08:47)
[2020-07-29] MEDS: metFORMIN 500 MG TABLET PO SCH ×2 (08:47→20:14)
[2020-07-29] MEDS: PANTOPRAZOLE 40 MG VIAL IV SCH (08:47)
[2020-07-29] MEDS: DOCUSATE SODIUM 100 MG CAPSULE PO SCH (09:10)
[2020-07-29] MEDS: QUEtiapine 25 MG TABLET PO SCH (20:14)
[2020-07-30] MEDS: methylPREDNISolone SOD SUC 40 MG/1 ML VIAL IV SCH ×3 (03:52→20:18)
[2020-07-30] MEDS: ALBUTEROL/IPRATROPIUM 3 ML NEB RESP TX SCH ×3 (07:46→19:41)
[2020-07-30] MEDS: INSULIN LISPRO 100 UNIT/ML SUBCUT SCH ×3 (08:17→16:50)
[2020-07-30] MEDS: POTASSIUM CHLORIDE 8 MEQ CAPSULE PO SCH ×2 (08:18→20:18)
[2020-07-30] MEDS: APIXABAN 2.5 MG TABLET PO SCH ×2 (08:18→20:17)
[2020-07-30] MEDS: metFORMIN 500 MG TABLET PO SCH ×2 (08:18→20:17)
[2020-07-30] MEDS: FUROSEMIDE 20 MG TABLET PO SCH (08:18)
[2020-07-30] MEDS: METOPROLOL TARTRATE 25 MG TABLET PO SCH ×2 (08:18→20:17)
[2020-07-30] MEDS: ASPIRIN EC 81 MG TABLET PO SCH (08:18)
[2020-07-30] MEDS: PANTOPRAZOLE 40 MG VIAL IV SCH (08:18)
[2020-07-30] MEDS: DOCUSATE SODIUM 100 MG CAPSULE PO SCH (08:24)
[2020-07-30] MEDS: QUEtiapine 25 MG TABLET PO SCH (20:18)
[2020-07-30] MEDS: LEVOFLOXACIN INJ 500 MG/100 ML PREMIX IV SCH (23:51)
[2020-07-31] MEDS: methylPREDNISolone SOD SUC 40 MG/1 ML VIAL IV SCH ×2 (04:00→16:29)
[2020-07-31 05:48] LABS: Basophils # 0.1 10*3/uL (0.0-0.2); Basophils % 0.3 % (0.0-0.8); Hemoglobin 11.6 GM/DL (12.0-16.0); Immature Granulocytes % 6.8 %; Immature Granulocytes Absolute 1.04 #; Lymphocytes # 0.4 10*3/uL (1.4-4.0); Lymphocytes % 2.4 % (21.3-54.2); Mean Corpuscular HGB Conc 31.4 GM/DL (32-36); Mean Corpuscular Volume 96.9 FL (87-102); Mean Platelet Volume 10.3 FL (9.6-12.0); Monocytes % 3.8 % (1.7-12.7); NRBC # 0.05 10*3/uL; Neutrophils % 86.7 % (38.7-73.9); Platelet Count 229 T/CUMM (130-400); Red Blood Count 3.82 MC/CUMM (3.8-5.5); Red Cell Distribution Width 15.9 % (9.3-17.3); White Blood Count 15.4 T/CUMM (4-12)
[2020-07-31 06:50] LABS: Band Neutrophils 4 % (0-10); Hypochromasia 1+; Lymphocytes 1 % (20-55); Metamyelocytes 3 %; Microcytosis 1+; Platelet Estimate Normal; Segmented Neutrophils 87 % (50-85); Total Cells Counted 100
[2020-07-31] MEDS: ALBUTEROL/IPRATROPIUM 3 ML NEB RESP TX SCH ×3 (07:11→19:46)
[2020-07-31] MEDS: METOPROLOL TARTRATE 25 MG TABLET PO SCH ×2 (08:59→20:41)
[2020-07-31] MEDS: APIXABAN 2.5 MG TABLET PO SCH ×2 (09:00→20:41)
[2020-07-31] MEDS: POTASSIUM CHLORIDE 8 MEQ CAPSULE PO SCH ×2 (09:00→20:40)
[2020-07-31] MEDS: ASPIRIN EC 81 MG TABLET PO SCH (09:00)
[2020-07-31] MEDS: DOCUSATE SODIUM 100 MG CAPSULE PO SCH (09:01)
[2020-07-31] MEDS: metFORMIN 500 MG TABLET PO SCH ×2 (09:01→20:41)
[2020-07-31] MEDS: PANTOPRAZOLE 40 MG VIAL IV SCH (09:02)
[2020-07-31] MEDS: FUROSEMIDE 20 MG TABLET PO SCH (09:02)
[2020-07-31] MEDS: INSULIN LISPRO 100 UNIT/ML SUBCUT SCH ×3 (09:03→16:30)
[2020-07-31 09:05] LABS: Calcium 8.9 MG/DL (8.5-10.1); Osmolality,Calculated 287.5 MOS/KG (273-304); Potassium 4.6 MMOL/L (3.5-5.1)
[2020-07-31] MEDS: ACETAMINOPHEN 325 MG TABLET PO PRN (20:41)
[2020-07-31] MEDS: QUEtiapine 25 MG TABLET PO SCH (20:41)
[2020-08-01] MEDS: LEVOFLOXACIN INJ 500 MG/100 ML PREMIX IV SCH (01:01)
[2020-08-01] MEDS: methylPREDNISolone SOD SUC 40 MG/1 ML VIAL IV SCH (03:32)
[2020-08-01] MEDS: ALBUTEROL/IPRATROPIUM 3 ML NEB RESP TX SCH (07:00)
[2020-08-01 07:12] VITALS: BP 133/78
[2020-08-01] MEDS: ASPIRIN EC 81 MG TABLET PO SCH (09:12)
[2020-08-01] MEDS: DOCUSATE SODIUM 100 MG CAPSULE PO SCH (09:12)
[2020-08-01] MEDS: FUROSEMIDE 20 MG TABLET PO SCH (09:12)
[2020-08-01] MEDS: METOPROLOL TARTRATE 25 MG TABLET PO SCH (09:13)
[2020-08-01] MEDS: APIXABAN 2.5 MG TABLET PO SCH (09:14)
[2020-08-01] MEDS: metFORMIN 500 MG TABLET PO SCH (09:14)
[2020-08-01] MEDS: POTASSIUM CHLORIDE 8 MEQ CAPSULE PO SCH (09:14)
[2020-08-01] MEDS: INSULIN LISPRO 100 UNIT/ML SUBCUT SCH (09:16)
[2020-08-01] MEDS: PANTOPRAZOLE 40 MG VIAL IV SCH (09:20)
== END 2020-08-01 11:35 | disposition home health service (06) | DRG 191 ==
LOC: N.EDINP 21:15 → N.ED 21:15 → N.3E 07-25 00:55
PROVIDERS: ADMIT Internal Medicine; ATTEND Internal Medicine